=== PATIENT | female | born 1950 | race Caucasian/White ===

== ENCOUNTER 2016-07-05 09:52 | Observation (INO) ==
[2016-07-05] MEDS ORDERED: *HR* FentaNYL (PF) 100 MCG/2 ML VIAL IVP ONE ×2 (10:02→11:55)
--- NOTE | 2016-07-05 10:09 | Emergency Department Note ---
Disposition Clinical Impression: Chest pain Qualifiers: Chest pain type: unspecified Qualified Code(s): R07.9 - Chest pain, unspecified Disposition: Admitted As Inpatient Condition: Good Referrals: Maryann Saba CNP [Primary Care Provider] - Forms: ED Satisfaction Letter Time of Disposition: 14:58 General Adult HPI - General Chief complaint: ED Chest Pain Stated complaint: CP/SOB Time Seen by Provider: 07/05/16 10:00 Source: patient, EMS Limitations: no limitations Nursing Notes Reviewed: Yes Vital Signs Reviewed: Yes - History of Present Illness HPI Narrative: Female patient was sitting eating breakfast this morning when she developed chest pain. The chest pain is in her lower sternal area. She states it radiates to the left side of her chest and into her back. She states she also gets short of breath with this. She has not had any relief and she states the pain is a 9 out of 10. She was given aspirin on her Route over to the emergency department by EMS. She states she has never felt pain like this before. She was started on prednisone and Tylenol 3 yesterday for a lower leg pain. She denies any nausea vomiting or diaphoresis. Pain Scale: 9 - Related Data Home Medications Medication Instructions Recorded Confirmed Citalopram [CeleXA] 20 mg PO QAM 04/12/15 10/04/15 Lamotrigine [Lamictal] 200 mg PO BID 04/12/15 10/04/15 Mv W-Ca/Iron/FA/Lutein/Hrb#179 1 tab PO DAILY 04/12/15 10/04/15 [Renato Multivit For Women Caplet] Cyclosporine [Restasis] 1 drop OP BID 10/04/15 10/04/15 Topiramate [Topamax] 100 mg PO BID 10/04/15 10/04/15 Topiramate [Topamax] 200 mg PO BID 03/06/16 03/06/16 Acetaminophen with Codeine 1 tab PO Q6H PRN 07/05/16 07/05/16 [Acetaminophen-Cod #2 Tablet] LORazepam [Ativan] 1 mg PO HS 07/05/16 07/05/16 PredniSONE [Deltasone] 20 mg PO AD 07/05/16 07/05/16 Allergies Allergy/AdvReac Type Severity Reaction Status Date / Time dextromethorphan Allergy Severe Seizure Verified 10/04/15 10:53 doxylamine Allergy Severe Seizure Verified 10/04/15 10:53 hydrocortisone Allergy Severe Seizure Verified 10/04/15 10:53 [From Hydrocortone] Iodinated Contrast Media - Allergy Severe Hives Verified 10/04/15 10:53 Oral and [Iodinated Contrast Media - IV Dye] Oxycodone Allergy Severe Seizure Verified 10/04/15 10:53 pseudoephedrine Allergy Severe Seizure Verified 10/04/15 10:53 hydrocodone [From Vicodin] Allergy See Verified 10/04/15 10:53 Comments ibuprofen Allergy Hives Verified 10/04/15 10:53 acetaminophen [From NyQuil] AdvReac See Verified 10/04/15 10:53 Comments diphenhydramine AdvReac Nausea Verified 10/04/15 10:53 [From Benadryl] All systems ED: reviewed and negative except as stated. Constitutional: Denies: fever, chills ENT ED: Denies: throat pain, congestion Cardiovascular: Reports: chest pain (Left side of her chest. Radiates to her back. Started this morning while at rest.). Denies: palpitations, dyspnea on exertion, syncope Respiratory: Denies: cough, dyspnea Gastrointestinal: Denies: abdominal pain, nausea, vomiting, diarrhea, hematemesis, melena, hematochezia Genitourinary: Denies: urgency, dysuria, frequency, hematuria Musculoskeletal: Reports: back pain (Associated with her chest pain.). Denies: neck pain Integumentary: Denies: rash Neurological: Denies: headache Past Medical History - Past Medical History Medical history: Reports: COPD, CVA, seizures Surgical history: Reports: hysterectomy, knee replacement, other Psychiatric history: Reports: anxiety MERCHANDISING EXECUTION MANAGER history: Reports: no MERCHANDISING EXECUTION MANAGER history, 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 - Social History Smoking Status: Never smoker Smokeless Tobacco Status: No Alcohol use: Reports: none Drug use: Reports: none Physical Exam - General Limitations: no limitations General appearance: alert, other (Appears in pain.) - Head Head exam: atraumatic, normocephalic - Eye Eye exam: Present: normal appearance, PERRL, EOMI. Absent: scleral icterus - ENT ENT exam: normal exam, normal oropharynx, mucous membranes moist - Neck Neck exam: Present: normal inspection, full ROM, trachea midline. Absent: tenderness, lymphadenopathy - Chest Chest inspection: Present: other (No pain on palpation.). Absent: normal inspection - Respiratory Respiratory exam: Present: normal lung sounds bilaterally. Absent: respiratory distress - Cardiovascular Cardiovascular exam: Present: regular rate, normal rhythm, normal heart sounds - Abdominal Exam Abdominal exam: Present: soft, Non-Tender, normal bowel sounds. Absent: rigidity - Extremities Exam Extremities exam: Present: normal inspection, full ROM, normal capillary refill. Absent: tenderness, pedal edema - Back Exam Back exam: Present: normal inspection, full ROM. Absent: tenderness - Neurological Exam Neurological exam: Present: alert, oriented X3 - Psychiatric Psychiatric exam: Present: normal affect, normal mood, anxious - Skin Skin exam: Present: warm, dry, intact, normal color. Absent: rash Course Course Narrative: Female patient brought in by EMS for chest pain that began this morning. They gave her 4 baby aspirin prior to arrival. She states she was eating breakfast whenever the pain started. She describes the pain is on the left side of her chest that radiates to her back. She denies any cardiac history. 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 The onset was sudden and there is been no alleviating factors. She denies any shortness of breath associated with this. There is no nausea or vomiting associated. She is not diaphoretic. She does moan whenever you touch her chest. Or her abdomen. However whenever I discussed with her if she is having pain when I press on her chest she denies this. She states it is just a constant pain to the left side of her chest. There is no radiation to her jaw or down her arm. She denies any recent illnesses. She denies any fevers. She denies any coughs. We will get a chest pain workup on patient. 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 - Reevaluation(s) Reevaluation #1: Patient states that her pain was relieved with the fentanyl. However after she got up and ambulated to the bathroom and back to her bed she states the pain is back. She does appear to have an anxiety component to this and is hyperventilating at this time. We will order Ativan. Patient is still complaining of a pain radiating to her back. This is concerning for possible dissection. We will get a CTA of patient's chest. Time: 11:00 Reevaluation #2: Patient reevaluated. She states that she is still having chest pain is on the left side of her chest. She states that it has decreased some but then returned after her CT. Patient CTA was read as normal. Her troponin is negative. She has never had a cardiac workup. Her chest pain is still present. We will admit patient for a cardiac workup. Time: 13:25 - Consultations Consultation #1: Dr Duque accepted Pt in stable condition. Time: 14:09 Vital Signs Temperature 98.5 F 07/05/16 09:54 Pulse Rate 73 07/05/16 09:54 Respiratory Rate 18 07/05/16 09:54 Blood Pressure 150/89 07/05/16 09:54 O2 Sat by Pulse Oximetry 98 07/05/16 09:54 Temperature 98.5 F 07/05/16 09:54 Pulse Rate 61 07/05/16 14:10 Respiratory Rate 16 07/05/16 14:10 Blood Pressure 148/90 07/05/16 14:10 O2 Sat by Pulse Oximetry 100 07/05/16 14:10 Oxygen Delivery Oxygen Delivery Room Air Medical Decision Making - Medical Records Medical records reviewed: Yes I reviewed the patient's medical records. - Lab Data Lab results reviewed: Yes I reviewed the patient's lab results. Result diagrams: 07/05/16 10:18 07/05/16 10:18 Lab Results 07/05/16 07/05/16 07/05/16 Range/Units 10:18 10:18 10:18 WBC 5.8 (4.3-11.1) K/mcL RBC 3.74 L (3.82-4.97) M/mcL Hgb 10.4 L (11.5-15.4) g/dL Hct 34.4 L (35.3-44.9) % MCV 92.0 (83.0-100.0) fL MCH 27.8 L (28.0-33.3) pg MCHC 30.2 L (31.6-35.5) g/dL RDW 15.7 H (11.5-14.5) % Plt Count 222 (140-400) K/mcL MPV 9.6 (9.4-12.4) fL Immature Gran % 0.5 (0-4) % Seg Neutrophils % 85.3 % Lymphocytes % 8.7 % Monocytes % 5.0 % Eosinophils % 0.2 % Basophils % 0.3 % Neutrophils # 4.9 (1.6-8.9) K/mcL Lymphocytes # 0.5 L (0.6-4.6) K/mcL Monocytes # 0.3 (0.0-1.3) K/mcL Eosinophils # 0.0 (0.0-0.6) K/mcL Basophils # 0.0 (0.0-0.2) K/mcL Sodium 134 L (136-145) mEq/L Potassium 4.1 (3.5-4.5) mEq/L Chloride 108 (98-109) mEq/L Carbon Dioxide 16 L (19-29) mEq/L BUN 10 (7-20) mg/dL Creatinine 1.03 (0.57-1.11) mg/dL Est GFR ( Amer) > 60 (> 60) Est GFR (Non-Af Amer) 54 L (> 60) BUN/Creatinine Ratio 10 (6-26) Glucose 113 H (70-99) mg/dL Calculated Osmolality 278 L (280-300) Calcium 8.6 (8.6-10.8) mg/dL Total Bilirubin 0.2 (0.2-1.2) mg/dL Direct Bilirubin 0.1 (0.0-0.5) mg/dL Indirect Bilirubin 0.1 (0.0-1.2) mg/dL AST 10 (5-34) Units/L ALT 6 (0-55) Units/L Alkaline Phosphatase 129 H (38-126) Units/L Troponin I 0.00 (0-0.03) ng/mL Serum Total Protein 6.6 (6.0-8.3) g/dL Albumin 3.4 L (3.5-5.0) g/dL Globulin 3.2 (2.4-3.5) g/dL Albumin/Globulin Ratio 1.1 (1.1-2.2) Amylase 66 (25-125) Units/L Lipase 29 (8-78) Units/L - Radiology Data Radiology results reviewed: Yes I reviewed the patient's radiology results. Chest X-Ray 07/05/16 10:00 IMPRESSION: No acute findings change from prior examination D/ / Farrukh Cedeño MD / Farrukh Cedeño MD Interpreting Provider: Farrukh Cedeño MD Chest CTA 07/05/16 13:00 IMPRESSION: 1. No evidence of pulmonary embolism. 2. Mild left basilar atelectasis. D/ / Angélica Grayson MD / Angélica Grayson MD Interpreting Provider: Angélica Grayson MD - EKG Data EKG #1 EKG attestation: Yes I reviewed and interpreted this EKG. EKG results narrative: Normal sinus rhythm at a rate of 77. MA interval is 189. QRS duration is 90. QT is 377. QTC is 409. There is no ST elevation or depression greater than 1 mm. There are no significant changes from EKG dated . Attestation Statement - Attestation Attestation: I examined this patient and my medical decision-making was reviewed with the MANIFOLD OPERATOR/PA/Advanced Practice Nurse/Resident Physician. I agree with the documented findings, disposition and treatment plan as described except to the extent set forth below. Patient to the emergency department with a chief complaint of chest pain. Sharp pains in her left side. Started while eating breakfast. No cardiac history. She is not diabetic. She states her mother from a [place]. On examination she appears in no distress. Her pains are not reproducible. Her lungs are clear. Plan. Cardiac workup is negative. She has never had a stress test or cardiac workup. She was ruled out for PE /dissection. Still appears uncomfortable and having pain. Admitted to medicine.
[2016-07-05 10:26] LABS: Basophils % 0.3 %; Eosinophils % 0.2 %; Hematocrit 34.4 % (35.3-44.9); Hemoglobin 10.4 g/dL (11.5-15.4); Immature Granulocytes % 0.5 % (0-4); Lymphocytes # 0.5 K/mcL (0.6-4.6); Lymphocytes % 8.7 %; Mean Corpuscular HGB Conc 30.2 g/dL (31.6-35.5); Mean Corpuscular Hemoglobin 27.8 pg (28.0-33.3); Mean Platelet Volume 9.6 fL (9.4-12.4); Monocytes # 0.3 K/mcL (0.0-1.3); Neutrophils # 4.9 K/mcL (1.6-8.9); Platelet Count 222 K/mcL (140-400); Red Blood Count 3.74 M/mcL (3.82-4.97); Red Cell Distribution Width 15.7 % (11.5-14.5); Segmented Neutrophils % 85.3 %
[2016-07-05 10:39] LABS: Alanine Aminotransferase 6 Units/L (0-55); Albumin 3.4 g/dL (3.5-5.0); Albumin/Globulin Ratio 1.1 (1.1-2.2); Alkaline Phosphatase 129 Units/L (38-126); Amylase 66 Units/L (25-125); Aspartate Amino Transferase 10 Units/L (5-34); BUN/Creatinine Ratio 10 (6-26); Bilirubin,Direct 0.1 mg/dL (0.0-0.5); Bilirubin,Indirect 0.1 mg/dL (0.0-1.2); Bilirubin,Total 0.2 mg/dL (0.2-1.2); Blood Urea Nitrogen 10 mg/dL (7-20); Calcium 8.6 mg/dL (8.6-10.8); Carbon Dioxide 16 mEq/L (19-29); Chloride 108 mEq/L (98-109); Globulin 3.2 g/dL (2.4-3.5); Glucose 113 mg/dL (70-99); Lipase 29 Units/L (8-78); Osmolality,Calculated 278 (280-300); Potassium 4.1 mEq/L (3.5-4.5); Sodium 134 mEq/L (136-145); Total Protein 6.6 g/dL (6.0-8.3); eGFR For African Americans > 60 (> 60); eGFR For Non-African Americans 54 (> 60)
[2016-07-05] MEDS ORDERED: *HR* LORazepam 2 MG/ML VIAL IVP ONE (11:00)
--- NOTE | 2016-07-05 12:36 | Electrocardiograph Report ---
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
[2016-07-05] MEDS ORDERED: Naloxone 0.4 MG/ML INJ IVP PRN (18:09)
[2016-07-05] MEDS ORDERED: ACETAMINOPHEN WITH CODEINE PO PRN (18:10)
[2016-07-05] MEDS ORDERED: predniSONE 20 MG TABLET PO SCH (18:15)
--- NOTE | 2016-07-05 19:09 | Internal Med History&Physical ---
Date of Encounter: 07/05/16 Time of Encounter: 18:25 Assessment and Plan (1) Chest pain Current visit: Yes Status: Acute patient with no prior CAD history but carrying significant risk factors comes in with chest pain that embodies features of both typical and atypical ACS admission EKG showed no ischemic changes, troponin was unremarkable we will therefore admit her for ACS r/o we will to telemonitoring, cycle her troponin levels NPO post midnight for stress test in AM we will check lipid panel and A1c for risk stratification, continue statins and antiplatelet therapy Qualifiers: Chest pain type: intercostal pain Qualified Code(s): R07.82 - Intercostal pain (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 we will continue her topiramate 300mg POQ12H as well as lamictal Qualifiers: Intractability: not intractable Status epilepticus: without status epilepticus Qualified Code(s): G40.A09 - Absence epileptic syndrome, not intractable, without status epilepticus (3) Depression Current visit: Yes Status: Chronic will continue citalopram Qualifiers: Depression Type: reactive depression Qualified Code(s): F32.9 - Major depressive disorder, single episode, unspecified (4) COPD (chronic obstructive pulmonary disease) Current visit: Yes Status: Chronic stable, we will do PRN nebs Qualifiers: COPD type: chronic bronchitis Chronic bronchitis type: simple Qualified Code(s): J41.0 - Simple chronic bronchitis Internal Medicine - H&P: HPI Chief complaint: Chest pain Admitted From: Emergency Dept Plans for Post Hospital Care: Home History of present illness: Ms. Mccarthy is a 65 year old female with no known prior history of CAD who comes in today with chest pain. She was in her usual state of health until this morning at around 9:30 am when whilst eating breakfast she began to experience left sided chest pain, it was sharp in character, radiated to her back, 9/10 in severity. The pain was associated with shortness of breath and palpitations but she denied nausea or vomiting, lightheadedness, diaphoresis or a feeling of apprehension. This is her first such episode. The pain lasted until she got to the ER of [place]. She received about 3 baby aspirins by the EMS staff en route to the ER but it gave her no significant relief. She reports that she had a stress test several years ago that was unremarkable. In the ER her EKG was unremarkable, so was her troponin level. Past Med Surg Social Fam HX - Past Medical History Medical history: COPD, CVA, seizures Psychiatric history: anxiety - Past Surgical History Surgical History: hysterectomy, knee replacement, other - Social History Smoking Status: Never smoker Smokeless Tobacco Status: No Alcohol use: none Drug use: none - Family History Mother Hx Family Cardiac Disorders: Yes Hx Family Respiratory Disorders: No Hx Family Cancer: Yes (breast cancer) Hx Family GI Disorders: No Hx Family Endocrine Disorder: No Hx Family Neuromuscular Disorders: No Hx Family Neurologic Disorders: No Hx Family HEENT Disorders: No Hx Family Autoimmune Disorders: No Internal Medicine - H&P: Meds Citalopram [CeleXA] 20 mg PO QAM 04/12/15 [History] Lamotrigine [Lamictal] 200 mg PO BID 04/12/15 [History] Mv W-Ca/Iron/FA/Lutein/Hrb#179 [Renato Multivit For Women Caplet] 1 tab PO DAILY 04/12/15 [History] Cyclosporine [Restasis] 1 drop OP BID 10/04/15 [History] Topiramate [Topamax] 100 mg PO BID 10/04/15 [History] Topiramate [Topamax] 200 mg PO BID 03/06/16 [History] Acetaminophen with Codeine [Acetaminophen-Cod #2 Tablet] 1 tab PO Q6H PRN [History] LORazepam [Ativan] 1 mg PO HS 07/05/16 [History] PredniSONE [Deltasone] 20 mg PO AD 07/05/16 [History] Allergies dextromethorphan Allergy (Severe, Verified 10/04/15 10:53) Seizure doxylamine Allergy (Severe, Verified 10/04/15 10:53) Seizure hydrocortisone [From Hydrocortone] Allergy (Severe, Verified 10/04/15 10:53) Seizure Iodinated Contrast Media - Oral and [Iodinated Contrast Media - IV Dye] Allergy (Severe, Verified 10/04/15 10:53) Hives Oxycodone Allergy (Severe, Verified 10/04/15 10:53) Seizure pseudoephedrine Allergy (Severe, Verified 10/04/15 10:53) Seizure hydrocodone [From Vicodin] Allergy (Verified 10/04/15 10:53) See Comments ibuprofen Allergy (Verified 10/04/15 10:53) Hives acetaminophen [From NyQuil] Adverse Reaction (Verified 10/04/15 10:53) See Comments diphenhydramine [From Benadryl] Adverse Reaction (Verified 10/04/15 10:53) Nausea All Systems PM: All systems ED: reviewed and negative except as stated. Constitutional: Denies: fever, chills ENT ED: Denies: throat pain, congestion Cardiovascular: Reports: chest pain (Left side of her chest. Radiates to her back. Started this morning while at rest.). Denies: palpitations, dyspnea on exertion, syncope Respiratory: Denies: cough, dyspnea Gastrointestinal: Denies: abdominal pain, nausea, vomiting, diarrhea, hematemesis, melena, hematochezia Genitourinary: Denies: urgency, dysuria, frequency, hematuria Musculoskeletal: Reports: back pain (Associated with her chest pain.). Denies: neck pain Integumentary: Denies: rash Neurological: Denies: headache - Constitutional Vitals: Temp Pulse Resp BP Pulse Ox 98.2 F 74 16 133/84 97 07/05/16 16:39 07/05/16 16:39 07/05/16 16:39 07/05/16 16:39 07/05/16 16:39 PHYSICAL EXAMINATION: GENERAL: Adult female, lying in bed with no sign of distress, Alert, Obese looking HEENT: NC/AT, EOMI, PERRLA, anicteric sclera, normal conjunctiva, supple, clear nares, moist mucous membranes, clear oropharynx, central uvula RESP: no chest wall tenderness with palpation, lungs are clear to auscultation bilaterally, good AE bilaterally, No crackles or wheeze CARDIO: Normal hearts sounds; S1 and 2, RRR with no murmurs, no JVD, no ankle edema GI: Soft, full, no tenderness, no organomegaly felt, normal bowel sounds heard MUSCULOSKELETAL: grossly normal movements bilaterally, no deformities noted, no calf tenderness EXTREMITIES: No clubbing, cyanosis or edema, NEUROLOGIC: CN 2-12 intact grossly. No motor/sensory deficit appreciated, PSYCHIATRY: AAO x 3. Mood is fair, exhibits appropriate judgement SKIN: no skin rash or ulcers noted Internal Med - H&P Results - Labs CBC & Chem 7: 07/05/16 10:18 07/06/16 00:45 - EKG Data -: EKG Interpreted by Myself EKG shows normal: sinus rhythm - Diagnostic Studies CT scan - chest Status: image reviewed by me Chest x-ray Status: image reviewed by me
[2016-07-05] MEDS ORDERED: *HR* LORazepam 1 MG TABLET PO SCH (21:00)
[2016-07-05] MEDS: lamoTRIgine 100 MG TABLET PO SCH (21:26)
[2016-07-05] MEDS: (Cyclosporine [Restasis] 1 DROP) OP SCH (21:27)
[2016-07-05] MEDS: Topiramate 100 MG TABLET PO SCH ×2 (21:28)
[2016-07-05] MEDS ORDERED: Acetaminophen 325 MG TABLET PO PRN (21:41)
[2016-07-06 01:02] LABS: Hemoglobin A1C 5.4 %
[2016-07-06] MEDS ORDERED: Albuterol 2.5 MG/3 ML NEBULIZER IH PRN (01:08)
[2016-07-06 01:18] LABS: BUN/Creatinine Ratio 10 (6-26); Blood Urea Nitrogen 10 mg/dL (7-20); Calcium 8.4 mg/dL (8.6-10.8); Carbon Dioxide 23 mEq/L (19-29); Chloride 109 mEq/L (98-109); Chol/HDL Ratio 2.8 (0-4.9); Cholesterol 191 mg/dL (< 200); Glucose 119 mg/dL (70-99); HDL Cholesterol 68 mg/dL (40-59); LDL Cholesterol,Calculated 112 mg/dL (0-99); Magnesium 2.1 mg/dL (1.6-2.6); Osmolality,Calculated 280 (280-300); Phosphorous 2.4 mg/dL (2.3-4.7); Potassium 4.4 mEq/L (3.5-4.5); Sodium 135 mEq/L (136-145); Triglycerides 55 mg/dL (< 150); eGFR For African Americans > 60 (> 60); eGFR For Non-African Americans 55 (> 60)
[2016-07-06] MEDS: *HR* Heparin 5,000 UNIT/ML VIAL SQ SCH ×2 (05:31→13:16)
[2016-07-06] MEDS ORDERED: Regadenoson 0.4 MG/5 ML SYRINGE IVP ONE (07:08)
[2016-07-06] MEDS ORDERED: Multivit/Ca/Min/Fe/FA 1 TAB TABLET PO SCH (09:00)
[2016-07-06] MEDS: Nitroglycerin 0.4 MG TAB.SUBL SL PRN ×2 (10:46→10:54)
[2016-07-06] MEDS: (Cyclosporine [Restasis] 1 DROP) OP SCH (10:47)
[2016-07-06] MEDS: lamoTRIgine 100 MG TABLET PO SCH (10:47)
[2016-07-06] MEDS: Topiramate 100 MG TABLET PO SCH ×2 (10:48)
--- NOTE | 2016-07-06 11:49 | Nuclear Medicine Stress Report ---
Regadenoson Nuclear Stress Name: Rocio Mccarthy Date of Study: 07/06/2016 Date: 1950 Ht: 65.0 in Medical Record#: [id number] Age: 65 Wt: 226.0 lb Gender: Female Order #: [id number] Location: [facility] Room: [facility] Supervising Provider: Prerna Melvin CNP Reading Physician: Jackson Ram DO, ROBERT WOMACK FASNC Ordering Physician: Heaven Harper CNP Primary Care Physician: Maryann Saba CNP Stress Technologist: Vilma Kathleen RECOVERY ENGINEER, CCT Dryerman/Woman: Preston Woodson Indications: Chest Pain Impression: Pharmacologic stress ECG is negative for ischemia at level of heart rate achieved. Gated EF = 62%. Small sized, mild intensity, fixed primarily apex perfusion defect consistent with artifact. Perfusion imaging was negative for ischemia or infarct. Stress Test Summary: Stress Test Type: Pharmacologic Regadenoson 0.4mg/5ml given IV Baseline Information: Initial Heart Rate: 65 Blood Pressure: 138/82 Stress Information: Test Terminated Due to (primary): As per protocol Maximum Blood Pressure: 140/72 Maximum Heart Rate: 90 Percent Maximum Heart Rate Achieved: 57 Double Product: [id number] METS Reached: 1 Symptoms: No chest symptoms Nuclear Summary: SPECT myocardial perfusion imaging using Tc99m Sestamibi given intravenously was performed at rest and following cardiac stress testing. The resting images were obtained following initial dose of 11.2 mCi. Following stress an additional dose of 33.5 mCi was given at peak exercise or 30 seconds post regadenoson infusion. Medication Given: Time Medication Dose Units Route Findings: Stress Note * Resting ECG demonstrated normal sinus rhythm. * No baseline arrhythmias were noted. * Pharmacologic stress ECG is negative for ischemia at level of heart rate achieved. * No arrhythmias were noted during stress. * Patient had no chest pain during stress. * Normal hemodynamic responses to pharmacologic stress. Study Quality * Study quality is average. Gated EF % * Gated EF = 62%. Left Ventricle * The left ventricle is not dilated. LVEDV = 111 mL. NORMALS * Normal wall motion. Apical Perfusion Stress * The apex segment shows a mild reduction in perfusion. Apical Perfusion Rest * The apex and apical anterior segments show a mild reduction in perfusion. TID * No evidence of transient ischemic dilatation. TID ratio = 1.09. Lung Uptake * There is no evidence of increase lung uptake. Updated by Jackson Ram DO, VU, ROBERT, YESENIA on 07/06/2016 11:41:16 AM electronically signed on 07/06/2016 11:43:18 AM with status of Final
[2016-07-06 14:46] VITALS: BP 102/63
--- NOTE | 2016-07-06 16:16 | Discharge Summary ---
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 Qualifiers: Intractability: not intractable Status epilepticus: without status epilepticus Qualified Code(s): G40.A09 - Absence epileptic syndrome, not intractable, without status epilepticus (3) Depression Priority: Secondary Status: Chronic Qualifiers: Depression Type: reactive depression Qualified Code(s): F32.9 - Major depressive disorder, single episode, unspecified (4) COPD (chronic obstructive pulmonary disease) Priority: Secondary Status: Chronic Qualifiers: COPD type: chronic bronchitis Chronic bronchitis type: simple Qualified Code(s): J41.0 - Simple chronic bronchitis - Discharge Medications Home Medications: Citalopram [CeleXA] 20 mg PO QAM 04/12/15 [History] Lamotrigine [Lamictal] 200 mg PO BID 04/12/15 [History] Mv W-Ca/Iron/FA/Lutein/Hrb#179 [Renato Multivit For Women Caplet] 1 tab PO DAILY 04/12/15 [History] Cyclosporine [Restasis] 1 drop OP BID 10/04/15 [History] Topiramate [Topamax] 100 mg PO BID 10/04/15 [History] Topiramate [Topamax] 200 mg PO BID 03/06/16 [History] Acetaminophen with Codeine [Acetaminophen-Cod #2 Tablet] 1 tab PO Q6H PRN [History] LORazepam [Ativan] 1 mg PO HS 07/05/16 [History] PredniSONE [Deltasone] 20 mg PO AD 07/05/16 [History] Allergies/Adverse Reactions: Allergies dextromethorphan Allergy (Severe, Verified 10/04/15 10:53) Seizure doxylamine Allergy (Severe, Verified 10/04/15 10:53) Seizure hydrocortisone [From Hydrocortone] Allergy (Severe, Verified 10/04/15 10:53) Seizure Iodinated Contrast Media - Oral and [Iodinated Contrast Media - IV Dye] Allergy (Severe, Verified 10/04/15 10:53) Hives Oxycodone Allergy (Severe, Verified 10/04/15 10:53) Seizure pseudoephedrine Allergy (Severe, Verified 10/04/15 10:53) Seizure hydrocodone [From Vicodin] Allergy (Verified 10/04/15 10:53) See Comments ibuprofen Allergy (Verified 10/04/15 10:53) Hives acetaminophen [From NyQuil] Adverse Reaction (Verified 10/04/15 10:53) See Comments diphenhydramine [From Benadryl] Adverse Reaction (Verified 10/04/15 10:53) Nausea Procedures/tests Complete & Pending: Procedures Performed prior 72 hours Category Date Time Status NM charlene perf SPECT multi [NM] Routine Exams 07/05/16 18:44 Taken SP pharm nuclear stress Routine Y 07/06/16 07:50 Completed Date of admission: 07/05/16 15:45 Primary care physician: Maryann Saba CNP Discharging clinician: Roselyn Akhtar Anticipated date of discharge: 07/06/16 - Patient Status Disposition: Home, Self-Care Condition: Good Functional capacity at discharge: independent ambulation Overall status at discharge: patient is back to baseline - Discharge Instructions Follow Up With: Maryann Saba CNP [Primary Care Provider] - 07/12/16 10:40 am - Diet and Activity Activity: increase activity as tolerated Diet: low fat, low cholesterol, low salt diet Interval History: Ms. Mccarthy is a 65 year old female with no known prior history of CAD who comes in today with chest pain. She was in her usual state of health until this morning at around 9:30 am when whilst eating breakfast she began to experience left sided chest pain, it was sharp in character, radiated to her back, 9/10 in severity. The pain was associated with shortness of breath and palpitations but she denied nausea or vomiting, lightheadedness, diaphoresis or a feeling of apprehension. This is her first such episode. The pain lasted until she got to the ER of [place]. She received about 3 baby aspirins by the EMS staff en route to the ER but it gave her no significant relief. She reports that she had a stress test several years ago that was unremarkable. In the ER her EKG was unremarkable, so was her troponin level. Hospital course: Ms. Mccarthy is a 65 year old female admited for chest pain to rule out ACS. Her del angel is intermittent , no radiation.she was placed on cardiac monitoring. CTA has been done , shows no PE. EKG unremarkable.3 sets of troponin negative.stress test has been done ,results negative. patient is pain-free now. We will discharge patient home. Patient was seen and examined She is pain-free right now. vitals are stable. Will dicharge patient home and afollow-up with PCP as outpatient. - Time Spent with Patient Total time spent providing and/or coordinating discharge services: 25 min Less than 30 minutes - Constitutional Vitals: Temp Pulse Resp BP Pulse Ox 98.2 F 73 14 102/63 98 07/06/16 14:44 07/06/16 14:44 07/06/16 14:44 07/06/16 14:44 07/06/16 14:44 General appearance: Present: cooperative, A&O X 3, answers questions appropriately - Head Head exam: Present: atraumatic, normocephalic - Eye Eye exam: Present: PERRL, conjuntiva pink, sclera anicteric Pupils: Present: PERRL - Neck Neck exam general surgery: Present: supple, trachea midline. Absent: lymphadenopathy - Respiratory Respiratory exam: Present: CTAB. Absent: accessory muscle use, rales, rhonchi, wheezes - Cardiovascular Cardiovascular exam: Present: RRR, +S1, +S2. Absent: diastolic murmur, gallop, rubs, systolic murmur - GI/Abdominal GI/Abdominal exam: Present: normal bowel sounds, soft, no peritoneal signs. Absent: distended, tenderness - Extremities Exam Extremities exam: Present: warm, radial pulses palpable and symetrical. Absent : calf tenderness, cyanotic, pedal edema - Neurological Exam Neurological exam: Present: CN II-XII intact, oriented X3, no focal deficits. Absent: pronater drift, facial droop, speech deficit - Skin Skin exam: Present: dry, intact
== END 2016-07-06 16:47 | disposition home health service (06) ==
LOC: 3BNU 09:52 → EMEROO 09:52 → 3BNU 16:04
PROVIDERS: ADMIT Internal Medicine Endocrinology, Diabetes & Metabolism; ATTEND Registered Nurse

== ENCOUNTER 2016-08-14 10:35 | Inpatient (IN) ==
--- NOTE | 2016-08-14 13:27 | Emergency Department Note ---
Disposition Clinical Impression: Chest pain Qualifiers: Chest pain type: unspecified Qualified Code(s): R07.9 - Chest pain, unspecified Lower extremity edema Qualifiers: Laterality: bilateral Qualified Code(s): R60.0 - Localized edema Disposition: Admitted As Inpatient Condition: Fair Referrals: Maryann Saba CNP [Primary Care Provider] - Forms: ED Satisfaction Letter Time of Disposition: 15:37 General Adult HPI - General Chief complaint: ED Extremity Problem,Nontraumatic Stated complaint: BLE swelling, LUE numbness Source: patient Limitations: no limitations Nursing Notes Reviewed: Yes Vital Signs Reviewed: Yes - History of Present Illness HPI Narrative: 65-year-old who comes in complaining of eye lateral lower extremity edema and stiffness and then had an episode of left arm tingling for about 10 minutes which resolved spontaneously. She states the lower extremity edema has gotten progressively worse over the last couple of days. She denies any chest pain she denies any shortness of breath. Pt Subjective Complaint: Bilateral lower extremity edema Onset (ago): day(s) Location: left, right, lower extremity Radiation: non-radiation Pain Scale: 6 Quality: burning, aching Consistency: constant Improves with: nothing Associated symptoms: Denies: chest pain, cough - Related Data Home Medications Medication Instructions Recorded Confirmed Citalopram [CeleXA] 20 mg PO QAM 04/12/15 07/05/16 Lamotrigine [Lamictal] 200 mg PO BID 04/12/15 07/05/16 Mv W-Ca/Iron/FA/Lutein/Hrb#179 1 tab PO DAILY 04/12/15 07/05/16 [Renato Multivit For Women Caplet] Cyclosporine [Restasis] 1 drop OP BID 10/04/15 07/05/16 Topiramate [Topamax] 100 mg PO BID 10/04/15 07/05/16 Topiramate [Topamax] 200 mg PO BID 03/06/16 07/05/16 Acetaminophen with Codeine 1 tab PO Q6H PRN 07/05/16 07/05/16 [Acetaminophen-Cod #2 Tablet] LORazepam [Ativan] 1 mg PO HS 07/05/16 07/05/16 PredniSONE [Deltasone] 20 mg PO AD 07/05/16 07/05/16 Allergies Allergy/AdvReac Type Severity Reaction Status Date / Time dextromethorphan Allergy Severe Seizure Verified 08/14/16 10:42 doxylamine Allergy Severe Seizure Verified 08/14/16 10:42 hydrocortisone Allergy Severe Seizure Verified 08/14/16 10:42 [From Hydrocortone] Iodinated Contrast Media - Allergy Severe Hives Verified 08/14/16 10:42 Oral and [Iodinated Contrast Media - IV Dye] Oxycodone Allergy Severe Seizure Verified 08/14/16 10:42 pseudoephedrine Allergy Severe Seizure Verified 08/14/16 10:42 hydrocodone [From Vicodin] Allergy See Verified 08/14/16 10:42 Comments ibuprofen Allergy Hives Verified 08/14/16 10:42 acetaminophen [From NyQuil] AdvReac See Verified 08/14/16 10:42 Comments diphenhydramine AdvReac Nausea Verified 08/14/16 10:42 [From Benadryl] Constitutional: Denies: fever, chills, weakness, weight change Eyes: Denies: eye pain, eye discharge, vision change ENT ED: Denies: ear pain, throat pain, dental pain, hearing loss, epistaxis, congestion, dysphagia Cardiovascular: Denies: chest pain, palpitations, dyspnea on exertion, edema, syncope Respiratory: Denies: cough, dyspnea, wheezes, hemoptysis, stridor Gastrointestinal: Denies: abdominal pain, nausea, vomiting, diarrhea, constipation, hematemesis, melena, hematochezia Genitourinary: Denies: dysuria, frequency, hematuria, discharge Musculoskeletal: Reports: joint swelling. Denies: back pain, neck pain, arthralgia, myalgia Integumentary: Denies: rash, abrasion, lesions Neurological: Denies: headache, weakness, numbness, paresthesias, confusion, abnormal gait, vertigo Psychiatric: Denies: anxiety, depression, suicidal thoughts, homicidal thoughts , auditory hallucinations, visual hallucinations Endocrine: Denies: fatigue Hematological/Lymphatic: Denies: easy bleeding, easy bruising Allergic/Immunologic: Denies: facial swelling, urticaria Past Medical History - Past Medical History Medical history: Reports: COPD, CVA, seizures Surgical history: Reports: hysterectomy, knee replacement, other Psychiatric history: Reports: anxiety [employer] 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, 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 - Social History Smoking Status: Never smoker Smokeless Tobacco Status: No Alcohol use: Reports: none Drug use: Reports: none Physical Exam - General Limitations: no limitations General appearance: alert, in no apparent distress - Head Head exam: atraumatic, normocephalic, normal inspection - Eye Eye exam: Present: normal appearance, PERRL, EOMI - ENT ENT exam: normal exam, normal oropharynx, mucous membranes moist - Neck Neck exam: Present: normal inspection, full ROM, trachea midline - Chest Chest inspection: Present: normal inspection - Respiratory Respiratory exam: Present: normal lung sounds bilaterally - Cardiovascular Cardiovascular exam: Present: regular rate, normal rhythm, normal heart sounds - Abdominal Exam Abdominal exam: Present: soft, Non-Tender. Absent: tenderness, distention, guarding, rebound, rigidity - Extremities Exam Extremities exam: Present: normal inspection, full ROM. Absent: tenderness, pedal edema - Expanded Lower Extremity Exam Foot/toe exam: Present: swelling Neurovascular/Tendon exam: Absent: motor deficit, sensory deficit, tendon deficit Gait: not tested/not observed - Back Exam Back exam: Present: normal inspection, full ROM. Absent: tenderness - Neurological Exam Neurological exam: Present: alert, oriented X3 - Psychiatric Psychiatric exam: Present: normal affect, normal mood - Skin Skin exam: Present: warm, dry, intact, normal color Course - Reevaluation(s) Reevaluation #1: Patient develop worsening chest pain we will obtain an EKG. Time: 14:01 - Consultations Consultation #1: I discussed with , it. Time: 15:36 Vital Signs Temperature 98.5 F 08/14/16 10:42 Pulse Rate 74 08/14/16 10:42 Respiratory Rate 18 08/14/16 10:42 Blood Pressure 149/76 08/14/16 10:42 O2 Sat by Pulse Oximetry 98 08/14/16 10:42 Temperature 98.5 F 08/14/16 10:42 Pulse Rate 74 08/14/16 10:42 Respiratory Rate 18 08/14/16 10:42 Blood Pressure 149/76 08/14/16 10:42 O2 Sat by Pulse Oximetry 98 08/14/16 10:42 Oxygen Delivery Oxygen Delivery Room Air Medical Decision Making - Lab Data Lab results reviewed: Yes I reviewed the patient's lab results. Result diagrams: 08/14/16 13:46 08/14/16 13:46 Lab Results 08/14/16 08/14/16 08/14/16 Range/Units 13:46 13:46 13:46 WBC 5.3 (4.3-11.1) K/mcL RBC 3.77 L (3.82-4.97) M/mcL Hgb 10.8 L (11.5-15.4) g/dL Hct 35.4 (35.3-44.9) % MCV 93.9 (83.0-100.0) fL MCH 28.6 (28.0-33.3) pg MCHC 30.5 L (31.6-35.5) g/dL RDW 17.7 H (11.5-14.5) % Plt Count 230 (140-400) K/mcL MPV 9.5 (9.4-12.4) fL Immature Gran % 0.2 (0-4) % Seg Neutrophils % 63.2 % Lymphocytes % 26.2 % Monocytes % 7.2 % Eosinophils % 2.3 % Basophils % 0.9 % Neutrophils # 3.4 (1.6-8.9) K/mcL Lymphocytes # 1.4 (0.6-4.6) K/mcL Monocytes # 0.4 (0.0-1.3) K/mcL Eosinophils # 0.1 (0.0-0.6) K/mcL Basophils # 0.1 (0.0-0.2) K/mcL ESR 30 H (0-15) mm/hr Sodium 138 (136-145) mEq/L Potassium 3.8 (3.5-4.5) mEq/L Chloride 109 (98-109) mEq/L Carbon Dioxide 22 (19-29) mEq/L BUN 7 (7-20) mg/dL Creatinine 1.02 (0.57-1.11) mg/dL Est GFR ( Amer) > 60 (> 60) Est GFR (Non-Af Amer) 55 L (> 60) BUN/Creatinine Ratio 7 (6-26) Glucose 96 (70-99) mg/dL Calculated Osmolality 284 (280-300) Calcium 9.0 (8.6-10.8) mg/dL Troponin I (0-0.03) ng/mL B-Natriuretic Peptide (0-100) pg/mL 08/14/16 08/14/16 Range/Units 13:46 13:46 WBC (4.3-11.1) K/mcL RBC (3.82-4.97) M/mcL Hgb (11.5-15.4) g/dL Hct (35.3-44.9) % MCV (83.0-100.0) fL MCH (28.0-33.3) pg MCHC (31.6-35.5) g/dL RDW (11.5-14.5) % Plt Count (140-400) K/mcL MPV (9.4-12.4) fL Immature Gran % (0-4) % Seg Neutrophils % % Lymphocytes % % Monocytes % % Eosinophils % % Basophils % % Neutrophils # (1.6-8.9) K/mcL Lymphocytes # (0.6-4.6) K/mcL Monocytes # (0.0-1.3) K/mcL Eosinophils # (0.0-0.6) K/mcL Basophils # (0.0-0.2) K/mcL ESR (0-15) mm/hr Sodium (136-145) mEq/L Potassium (3.5-4.5) mEq/L Chloride (98-109) mEq/L Carbon Dioxide (19-29) mEq/L BUN (7-20) mg/dL Creatinine (0.57-1.11) mg/dL Est GFR ( Amer) (> 60) Est GFR (Non-Af Amer) (> 60) BUN/Creatinine Ratio (6-26) Glucose (70-99) mg/dL Calculated Osmolality (280-300) Calcium (8.6-10.8) mg/dL Troponin I 0.00 (0-0.03) ng/mL B-Natriuretic Peptide 89 (0-100) pg/mL - Radiology Data Radiology results reviewed: Yes I reviewed the patient's radiology results. Chest X-Ray 08/14/16 13:23 IMPRESSION: No acute process. D/ / Abilio Hess MD / Abilio Hess MD Interpreting Provider: Abilio Hess MD - EKG Data EKG #1 EKG attestation: Yes I reviewed and interpreted this EKG. EKG shows normal: sinus rhythm Rate: normal Rhythm: NSR Interpretation: no acute changes EKG #2 EKG attestation: Yes I reviewed and interpreted this EKG. EKG shows normal: sinus rhythm Rate: normal Rhythm: NSR Interpretation: no acute changes
[2016-08-14 13:57] LABS: Basophils # 0.1 K/mcL (0.0-0.2); Basophils % 0.9 %; Eosinophils # 0.1 K/mcL (0.0-0.6); Eosinophils % 2.3 %; Hematocrit 35.4 % (35.3-44.9); Hemoglobin 10.8 g/dL (11.5-15.4); Immature Granulocytes % 0.2 % (0-4); Lymphocytes # 1.4 K/mcL (0.6-4.6); Lymphocytes % 26.2 %; Mean Corpuscular HGB Conc 30.5 g/dL (31.6-35.5); Mean Corpuscular Hemoglobin 28.6 pg (28.0-33.3); Mean Corpuscular Volume 93.9 fL (83.0-100.0); Mean Platelet Volume 9.5 fL (9.4-12.4); Monocytes # 0.4 K/mcL (0.0-1.3); Monocytes % 7.2 %; Neutrophils # 3.4 K/mcL (1.6-8.9); Platelet Count 230 K/mcL (140-400); Red Blood Count 3.77 M/mcL (3.82-4.97); Red Cell Distribution Width 17.7 % (11.5-14.5); Segmented Neutrophils % 63.2 %
[2016-08-14 14:07] LABS: BUN/Creatinine Ratio 7 (6-26); Blood Urea Nitrogen 7 mg/dL (7-20); Carbon Dioxide 22 mEq/L (19-29); Chloride 109 mEq/L (98-109); Glucose 96 mg/dL (70-99); Osmolality,Calculated 284 (280-300); Potassium 3.8 mEq/L (3.5-4.5); Sodium 138 mEq/L (136-145); eGFR For African Americans > 60 (> 60); eGFR For Non-African Americans 55 (> 60)
[2016-08-14] MEDS ORDERED: *HR* Morphine 2 MG/ML SYRINGE IVP ONE ×2 (14:16→18:35)
[2016-08-14] MEDS ORDERED: Ondansetron 4 MG/2 ML VIAL IVP ONE (14:16)
[2016-08-14] MEDS ORDERED: Naloxone 0.4 MG/ML INJ IVP PRN (18:22)
[2016-08-14] MEDS ORDERED: *HR* Morphine 2 MG/ML SYRINGE ONE (18:36)
[2016-08-14] MEDS ORDERED: *HR* LORazepam 1 MG TABLET PO PRN (18:39)
--- NOTE | 2016-08-14 19:12 | Event Note ---
Date of Encounter: 08/14/16 Time of Encounter: 19:07 I examined this patient and my medical decision-making was reviewed with the Advanced Practice Nurse, Olive Alvarenga. I agree with the documented findings , disposition and treatment plan as described except to the extent set forth below. Patient currently reports severe stabbing sharp chest pain left-sided radiating into the left shorter associated with left upper extremity numbness. She says that the pain started in the emergency department that she did not have the pain before coming to the hospital. She presented to the hospital for evaluation of leg swelling and difficulty walking. Chest pain as associated with shortness of breath and has improved with administration of IV morphine. Physical exam: Patient is tearful and in moderate distress due to pain. Heart is regular S1-S2 with no murmurs. Lungs are clear although the exam is limited by shallow breathing. 1+ lower extremity pitting edema with sock markings. Right knee replacement scar noted. Tenderness bilaterally. Laboratory data: BUN 7 creatinine 1.0 and troponin 0.00. BNP 89. EKG personally reviewed shows normal sinus rhythm with normal intervals and no ST or T-wave changes. Subsequent EKGs during chest pain were obtained and showed no acute changes. We will treat chest pain with nitroglycerin and morphine. She received several doses of morphine so far. She is certainly at high risk for morbidity mortality and complications due to multiple doses of IV opiates. Plan: We will place the patient in observation under the care of our service. Monitor on telemetry. Trend troponin. Obtain echocardiogram. Obtain lower extremity Doppler. I will also obtain a CT angiogram of the chest stat to rule out PE given severe , rapidly escalating chest pain associated with shortness of breath and leg swelling. I will sign this out to the night team.
--- NOTE | 2016-08-14 19:41 | Internal Med History&Physical ---
Date of Encounter: 08/14/16 Time of Encounter: 19:38 Assessment and Plan (1) Chest pain Current visit: Yes Status: Acute That started in the ED and persisted despite 2 doses of morphine. Initial troponin negative, EKG without acute ST changes. CXR non-acute. Concern for possible PE with acute onset of chest pain. We will check d-dimer and VQ scan ( cannot have CTA due to SAM). If d-dimer positive VQ scan intermediate will need to anticoagulate. Continue to trend troponin. Pain control with morphine , nitroglycerin. Qualifiers: Chest pain type: unspecified Qualified Code(s): R07.9 - Chest pain, unspecified (2) Lower extremity edema Current visit: Yes Status: Acute Reports bilateral lower extremity edema and pain for 1 week prior to admission. With trace non-pitting edema on exam. Low suspicion for VTE but we will check bilateral dopplers. Last echo September 2015 with EF 55%. Does not appear overtly overloaded on exam. Will check echo as well. Hold on diuresis at this time. Qualifiers: Laterality: bilateral Qualified Code(s): R60.0 - Localized edema (3) Seizure Current visit: Yes Status: Acute Per history. Continue home AEDs. Seizure precautions. (4) Anemia Current visit: No Status: Acute Per history. Hgb 10 (which appears at baseline). Intermittently monitor CBC. Qualifiers: Anemia type: unspecified type Qualified Code(s): D64.9 - Anemia, unspecified (5) DVT prophylaxis Current visit: Yes Status: Acute [facility] Internal Medicine - H&P: HPI Chief complaint: My legs are swollen History of present illness: Ms. Mccarthy is a 65 year old female with past medical history seizures and COPD who presented to [facility] on 2016 with complaints of bilateral lower leg swelling. While in the ED she had an acute onset of chest pain, she was placed in observation status for ACS rule out further workup and treatment. Information obtained from chart review and patient report. Patient reports lower leg swelling started over the last week. She says she has pain in her legs when she walks. She is to stop in order to make the pain go away. She reports an acute episode of chest pain in the ED she is chest pain was midsternal radiated to back, described as sharp rates 10 out of 10, nothing worsened and morphine relieve. On my exam her only complaint is the lower extremity swelling she does complain of some chest pain which she takes a deep breath otherwise she has no complaints Past Med Surg Social Fam HX - Past Medical History Medical history: COPD, CVA, seizures Psychiatric history: anxiety - Past Surgical History Surgical History: hysterectomy, knee replacement, other - Social History Smoking Status: Never smoker Smokeless Tobacco Status: No Alcohol use: none Drug use: none - Family History Mother Hx Family Cardiac Disorders: Yes Hx Family Respiratory Disorders: No Hx Family Cancer: Yes (breast cancer) Hx Family GI Disorders: No Hx Family Endocrine Disorder: No Hx Family Neuromuscular Disorders: No Hx Family Neurologic Disorders: No Hx Family HEENT Disorders: No Hx Family Autoimmune Disorders: No Internal Medicine - H&P: Meds Lamotrigine [Lamictal] 200 mg PO BID 04/12/15 [History] Mv W-Ca/Iron/FA/Lutein/Hrb#179 [Renato Multivit For Women Caplet] 1 tab PO DAILY 04/12/15 [History] Cyclosporine [Restasis] 1 drop OP BID 10/04/15 [History] Topiramate [Topamax] 100 mg PO BID 10/04/15 [History] Topiramate [Topamax] 200 mg PO BID 03/06/16 [History] LORazepam [Ativan] 1 mg PO HS PRN 07/05/16 [History] Acetaminophen [Tylenol] 325 mg PO Q6HR PRN 08/14/16 [History] Aspirin 81 mg PO DAILY 08/14/16 [History] Citalopram Hydrobromide [Celexa] 40 mg PO DAILY 08/14/16 [History] Ferrous Sulfate 325 mg PO BIDWM 08/14/16 [History] Montelukast [Singulair] 10 mg PO QPM 08/14/16 [History] Pantoprazole Sodium [Protonix] 40 mg PO DAILY 08/14/16 [History] Allergies dextromethorphan Allergy (Severe, Verified 08/14/16 10:42) Seizure doxylamine Allergy (Severe, Verified 08/14/16 10:42) Seizure hydrocortisone [From Hydrocortone] Allergy (Severe, Verified 08/14/16 10:42) Seizure Iodinated Contrast Media - Oral and [Iodinated Contrast Media - IV Dye] Allergy (Severe, Verified 08/14/16 10:42) Hives Oxycodone Allergy (Severe, Verified 08/14/16 10:42) Seizure pseudoephedrine Allergy (Severe, Verified 08/14/16 10:42) Seizure hydrocodone [From Vicodin] Allergy (Verified 08/14/16 10:42) See Comments ibuprofen Allergy (Verified 08/14/16 10:42) Hives acetaminophen [From NyQuil] Adverse Reaction (Verified 08/14/16 10:42) See Comments diphenhydramine [From Benadryl] Adverse Reaction (Verified 08/14/16 10:42) Nausea All Systems PM: A 10-system review of systems was performed and is negative for pertinent findings except as documented above in the HPI. - Constitutional Constitutional: no chills, no fever(s), no night sweats - EENT Eyes: no change in vision, no discharge, no pain, no photophobia Ears: no ear discharge, no ear pain, no tinnitus Nose, mouth and throat: no dysphagia, no nasal discharge, no neck pain, no sore throat - Cardiovascular Cardiovascular ROS IM: chest pain, edema, no diaphoresis, no dyspnea, no lightheadedness, no palpitations, no syncope - Respiratory Respiratory: no cough, no dyspnea, no wheezing, no excessive phlegm production - Gastrointestinal Gastrointestinal: no abdominal pain, no diarrhea, no hematemesis, no hematochezia, no melena, no nausea, no vomiting - Genitourinary Genitourinary: no change in urinary stream, no dysuria, no flank pain, no hematuria - Musculoskeletal Musculoskeletal ROS IM: no numbness, no tingling - Integumentary Integumentary IM: no rash, no unusual bruising - Neurological Neurological ROS: no confusion, no convulsions, no focal weakness, no numbness, no tingling, no tremor(s) - Hematologic/Lymphatic Hematologic/Lymphatic: no easy bruising - Constitutional Vitals: Temp Pulse Resp BP Pulse Ox 98.3 F 69 23 161/89 100 08/14/16 19:11 08/14/16 19:11 08/14/16 19:11 08/14/16 19:11 08/14/16 19:11 General appearance: Present: A&O X 3 - Head Head exam: Present: atraumatic, normocephalic - Eye Eye exam: Present: PERRL, conjuntiva pink, sclera anicteric Pupils: Present: PERRL - Neck Neck exam general surgery: Present: supple, trachea midline. Absent: lymphadenopathy - Respiratory Respiratory exam: Present: CTAB. Absent: accessory muscle use, rales, rhonchi, wheezes - Cardiovascular Cardiovascular exam: Present: RRR, +S1, +S2. Absent: diastolic murmur, gallop, rubs, systolic murmur Additional comments: Trace to mild nonpitting pedal edema with sock brady - GI/Abdominal GI/Abdominal exam: Present: normal bowel sounds, soft, no peritoneal signs. Absent: distended, tenderness - Extremities Exam Extremities exam: Present: warm, radial pulses palpable and symetrical. Absent : calf tenderness, cyanotic, pedal edema - Neurological Exam Neurological exam: Present: CN II-XII intact, oriented X3, no focal deficits. Absent: pronater drift, facial droop, speech deficit - Skin Skin exam: Present: dry, intact Internal Med - H&P Results - Labs CBC & Chem 7: 08/14/16 13:46 08/14/16 13:46
[2016-08-14] MEDS: lamoTRIgine 100 MG TABLET PO SCH (20:04)
[2016-08-14] MEDS: Topiramate 100 MG TABLET PO SCH (20:04)
[2016-08-14] MEDS ORDERED: TOPIRAMATE 200 MG PO SCH (21:00)
[2016-08-15 01:43] LABS: Basophils % 0.6 %; Eosinophils # 0.2 K/mcL (0.0-0.6); Eosinophils % 2.9 %; Hematocrit 32.1 % (35.3-44.9); Hemoglobin 9.9 g/dL (11.5-15.4); Immature Granulocytes % 0.2 % (0-4); Lymphocytes # 1.6 K/mcL (0.6-4.6); Mean Corpuscular HGB Conc 30.8 g/dL (31.6-35.5); Mean Corpuscular Hemoglobin 29.2 pg (28.0-33.3); Mean Corpuscular Volume 94.7 fL (83.0-100.0); Mean Platelet Volume 10.1 fL (9.4-12.4); Monocytes # 0.5 K/mcL (0.0-1.3); Monocytes % 9.4 %; Neutrophils # 2.9 K/mcL (1.6-8.9); Platelet Count 211 K/mcL (140-400); Red Blood Count 3.39 M/mcL (3.82-4.97); Segmented Neutrophils % 55.9 %
[2016-08-15 02:02] LABS: Alanine Aminotransferase 7 Units/L (0-55); Albumin 3.1 g/dL (3.5-5.0); Albumin/Globulin Ratio 1.3 (1.1-2.2); Alkaline Phosphatase 104 Units/L (38-126); Aspartate Amino Transferase 13 Units/L (5-34); BUN/Creatinine Ratio 8 (6-26); Bilirubin,Total 0.4 mg/dL (0.2-1.2); Blood Urea Nitrogen 9 mg/dL (7-20); Calcium 8.3 mg/dL (8.6-10.8); Carbon Dioxide 24 mEq/L (19-29); Chloride 112 mEq/L (98-109); Globulin 2.4 g/dL (2.4-3.5); Glucose 98 mg/dL (70-99); Osmolality,Calculated 291 (280-300); Potassium 3.4 mEq/L (3.5-4.5); Sodium 141 mEq/L (136-145); Total Protein 5.5 g/dL (6.0-8.3); eGFR For African Americans > 60 (> 60); eGFR For Non-African Americans 51 (> 60)
[2016-08-15] MEDS ORDERED: traMADol 50 MG TABLET PO ONE (03:29)
[2016-08-15] MEDS ORDERED: *HR* Enoxaparin 40 MG/0.4 ML SYRINGE SQ SCH (06:00)
[2016-08-15] MEDS: Topiramate 100 MG TABLET PO SCH ×2 (07:39→21:33)
[2016-08-15] MEDS: lamoTRIgine 100 MG TABLET PO SCH ×2 (07:40→21:33)
[2016-08-15] MEDS: Aspirin 81 MG TAB.CHEW PO SCH (07:40)
[2016-08-15 09:05] LABS: Bilirubin,Urine Negative (Negative); Blood,Urine Negative (Negative); Color,Urine Yellow (Yellow); Glucose,Urine (UA) Normal (Normal); Ketones,Urine Negative (Negative); Leukocyte Esterase,Urine Small (Negative); Nitrite,Urine Negative (Negative); Protein,Urine Negative (Neg-Trace); Specific Gravity,Urine 1.016 (1.010-1.025); Urobilinogen,Urine Normal (Normal)
[2016-08-15 09:08] LABS: Bacteria,Urine None Seen per hpf (None-Few); Clarity,Urine Clear (Clear); Hyaline Casts,Urine None Seen per lpf (None-Few); Squamous Epithelial Cell,Urine Many per lpf (None-Few)
[2016-08-15] MEDS: Ondansetron ODT 4 MG TAB.RAPDIS SL PRN (09:08)
[2016-08-15] MEDS ORDERED: SUMAtriptan 6 MG/0.5 ML SQ ONE (10:04)
--- NOTE | 2016-08-15 11:21 | Electrocardiograph Report ---
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
--- NOTE | 2016-08-15 11:23 | Electrocardiograph Report ---
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
[2016-08-15] MEDS: *HR* Morphine 2 MG/ML SYRINGE IVP PRN (15:49)
--- NOTE | 2016-08-15 16:39 | Electrocardiograph Report ---
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
--- NOTE | 2016-08-15 18:58 | Internal Med Progress Note ---
Date of Encounter: 08/15/16 Time of Encounter: 15:00 - Assessment and plan (1) Unstable angina Current Visit: Yes Status: Acute Assessment and plan: She has recurrent chest pain at rest consistent with unstable angina. I have reviewed her EKG which shows normal sinus rhythm with no acute ST or T-wave changes and no change from her prior EKG. I will check a stat troponin. Continue with nitroglycerin and morphine as needed for chest pain. We will start treatment with heparin drip per ACS protocol. Will consult cardiology. The patient will need further cardiac workup either a stress test or a cardiac catheterization. We will continue with telemetry for now. (2) Depression Current Visit: No Status: Chronic Qualifiers: Depression Type: reactive depression Qualified Code(s): F32.9 - Major depressive disorder, single episode, unspecified (3) COPD (chronic obstructive pulmonary disease) Current Visit: No Status: Chronic Assessment and plan: We will treat her with inhaled albuterol as needed. Qualifiers: COPD type: chronic bronchitis Chronic bronchitis type: simple Qualified Code(s): J41.0 - Simple chronic bronchitis (4) Lower extremity edema Current Visit: Yes Status: Acute Assessment and plan: Follow-up echocardiogram report. Qualifiers: Laterality: bilateral Qualified Code(s): R60.0 - Localized edema (5) Seizure Current Visit: Yes Status: Acute (6) DVT prophylaxis Current Visit: Yes Status: Acute Assessment and plan: We will be on heparin drip. We will stop Lovenox. (7) Chest pain Current Visit: Yes Status: Acute Assessment and plan: Her chest pain was concerning for PE and therefore VQ scan was done last night and showed a low probability for PE. Qualifiers: Chest pain type: unspecified Qualified Code(s): R07.9 - Chest pain, unspecified - Subjective Interval history: The patient presented with chest pain last night. She was chest pain-free after receiving nitroglycerin. Today in the afternoon she reported severe chest pain again that lasted for more than 30 minutes. She was treated with nitroglycerin and morphine and this started to subside. - Constitutional Vitals: Temp Pulse Resp BP Pulse Ox 98.4 F 62 18 149/83 97 08/15/16 15:46 08/15/16 15:46 08/15/16 15:46 08/15/16 15:46 08/15/16 15:46 General appearance: Present: A&O X 3 - Respiratory Respiratory exam: Present: CTAB. Absent: accessory muscle use, rales, rhonchi, wheezes - Cardiovascular Cardiovascular exam: Present: RRR, +S1, +S2. Absent: diastolic murmur, gallop, rubs, systolic murmur - GI/Abdominal GI/Abdominal exam: Present: normal bowel sounds, soft, no peritoneal signs. Absent: distended, tenderness - Extremities Exam Extremities exam: Present: warm, radial pulses palpable and symetrical. Absent : calf tenderness, cyanotic, pedal edema - Skin Skin exam: Present: dry, intact Internal Medicine: Result - Labs CBC & Chem 7: 08/15/16 01:16 08/15/16 01:16 Labs: Short CBC 08/15/16 Range/Units 01:16 WBC 5.1 (4.3-11.1) K/mcL Hgb 9.9 L (11.5-15.4) g/dL Hct 32.1 L (35.3-44.9) % Plt Count 211 (140-400) K/mcL Neutrophils # 2.9 (1.6-8.9) K/mcL BMP 08/15/16 01:16 Sodium 141 Potassium 3.4 L Chloride 112 H Carbon Dioxide 24 BUN 9 Creatinine 1.09 Glucose 98 Calcium 8.3 L Cardiac Enzymes 08/14/16 08/15/16 08/15/16 Range/Units 19:22 01:16 07:37 Troponin I 0.01 0.01 0.01 (0-0.03) ng/mL Liver Function 08/15/16 Range/Units 01:16 Total Bilirubin 0.4 (0.2-1.2) mg/dL AST 13 (5-34) Units/L ALT 7 (0-55) Units/L Alkaline Phosphatase 104 (38-126) Units/L Albumin 3.1 L (3.5-5.0) g/dL Urine 08/15/16 Range/Units 08:50 Urine Color Yellow (Yellow) Urine Clarity Clear (Clear) Urine pH 7.0 (5.0-8.0) pH Units Ur Specific [place] 1.016 (1.010-1.025) Urine Protein Negative (Neg-Trace) mg/dL Urine Glucose (UA) Normal (Normal) mg/dL - ABG Interpretation ABG results: PT/INR, D-dimer D-Dimer 503 ng/mLFEU (0-500) H 08/14/16 19:29 - Impressions Impressions Pulmonary Perfusion Imaging 08/14/16 19:22 IMPRESSION: Low Probability for Pulmonary Embolus. D/ / Jackson La MD / Jackson La MD Interpreting Provider: Jackson La MD Consult Discharge Plan - Plan Referrals: Maryann Saba, CO[employer]APPER [Primary Care Provider] -
[2016-08-15] MEDS ORDERED: *HR* Heparin 5,000 UNIT/ML VIAL IVP PRN ×2 (20:23)
[2016-08-15] MEDS ORDERED: *HR* Heparin 5,000 UNIT/ML VIAL IVP ONE (20:23)
[2016-08-15] MEDS ORDERED: Heparin 25,000 UNIT/500 ML D5W 25,000 UNIT/500 ML MLS IVC SCH (20:30)
[2016-08-16] MEDS: Ondansetron ODT 4 MG TAB.RAPDIS SL PRN (03:41)
[2016-08-16 04:35] LABS: Basophils % 0.9 %; Eosinophils # 0.1 K/mcL (0.0-0.6); Eosinophils % 2.2 %; Hematocrit 35.5 % (35.3-44.9); Hemoglobin 10.8 g/dL (11.5-15.4); Immature Granulocytes % 0.2 % (0-4); Lymphocytes # 1.1 K/mcL (0.6-4.6); Lymphocytes % 23.9 %; Mean Corpuscular HGB Conc 30.4 g/dL (31.6-35.5); Mean Corpuscular Hemoglobin 28.4 pg (28.0-33.3); Mean Corpuscular Volume 93.4 fL (83.0-100.0); Mean Platelet Volume 9.9 fL (9.4-12.4); Monocytes # 0.3 K/mcL (0.0-1.3); Monocytes % 7.1 %; Neutrophils # 3.1 K/mcL (1.6-8.9); Platelet Count 231 K/mcL (140-400); Red Cell Distribution Width 17.9 % (11.5-14.5); Segmented Neutrophils % 65.7 %
--- NOTE | 2016-08-16 04:41 | Event Note ---
Date of Encounter: 08/16/16 Time of Encounter: 04:40 Patient had an episode of dysarthria lasted for about 30 minutes. She felt fine after she woke from sleep and then this event happened. CT head no bleed or acute stroke. Rest of neuro exam unremarkable. Reassessed the patient again and she ahs no focal neuro deficits.
[2016-08-16 05:39] LABS: BUN/Creatinine Ratio 8 (6-26); Blood Urea Nitrogen 7 mg/dL (7-20); Calcium 8.8 mg/dL (8.6-10.8); Carbon Dioxide 20 mEq/L (19-29); Chloride 110 mEq/L (98-109); Glucose 107 mg/dL (70-99); Osmolality,Calculated 286 (280-300); Potassium 3.6 mEq/L (3.5-4.5); Sodium 139 mEq/L (136-145); eGFR For African Americans > 60 (> 60); eGFR For Non-African Americans > 60 (> 60)
--- NOTE | 2016-08-16 07:01 | ECHO - Doppler Report ---
Echo with Saline Contrast Name: Rocio Mccarthy Date of Study: 08/15/2016 Date: 1950 Ht: 64.0 in Medical Record#: [id number] Age: 65 Wt: 225.0 lb Gender: Female BSA: 2.06 Order #: [id number] Location: [facility] Room #: 3A14 Reading Physician: Dax Billingsley MD, [facility] Performance Analyst: Arianna Gregg Ordering Physician: Lexi Alvarenga CNP Primary Physician: Jitendra Reyna DO Indications: Chest pain Impressions: Normal LV systolic function, LVEF 55-60%. Normal left ventricular diastolic function. Normal right ventricular size and function. Agitated saline contrast was performed, but was poor in quality. Cannot rule-out a PFO on this study. No significant valvular dysfunction. No evidence of pulmonary hypertension. Left Ventricular Wall Motion: Rest Echo Findings All wall segments showed normal motion. Findings: Study Quality * Technically adequate exam. ECG Findings * Normal sinus rhythm. Left Ventricle * Normal LV systolic function, LVEF 55-60%. * Normal LV chamber size and wall thickness. * Normal left ventricular diastolic function. Right Ventricle * Normal right ventricular size and function. Left Atrium * Normal left atrial size. Right Atrium * Normal right atrial size. Interatrial Septum * Agitated saline contrast was performed, but was poor in quality. Cannot rule-out a PFO on this study. Aorta * Normally sized aortic root. Pericardium * There is no pericardial effusion present. IVC * The IVC is mildly dilated with normal inspiratory collapse. Aortic Valve * Trileaflet aortic valve. * No aortic stenosis. * No aortic regurgitation. Mitral Valve * Normal mitral valve structure. * No mitral stenosis. * Trace mitral regurgitation. Tricuspid Valve * Normal tricuspid valve structure. * No tricuspid stenosis. * Trace tricuspid regurgitation. * No evidence of pulmonary hypertension. Pulmonic Valve * Pulmonic valve not well visualized. * No pulmonic stenosis. * Trace pulmonic regurgitation. History Family History of CAD 10/04/2015 a Previous Echo was performed. Contrast: Agitated saline 50 ml. Measurements: BP: 120/ 78 2D Normal Values RVIDd: 3.40 cm IVSd: .90 cm 0.6 - 1.0 cm LVIDd: 5.10 cm 3.7 - 5.6 cm LVPWd: .90 cm 0.6 - 1.1 cm LVIDs: 3.60 cm 1.5 - 3.6 cm AO: 3.40 cm < 4.0 cm %FS: 29.40 cm >25 % LA volume: 62 Mitral Valve Peak E:1.02 m/sec Peak A:.83 m/sec E/A Ratio:1.2 Tricuspid Valve TV Regurg Peak Grad: 26.00mmHg TV Regurg Peak Adrien: 2.54m/sec Updated by Dax Billingsley MD, [facility] on 08/16/2016 6:55:22 AM electronically signed on 08/16/2016 6:56:00 AM with status of Final Wall Motion Roe: 1=Normal, 2=Hypokinesis, 3=Akinesis, 4=Dyskinesis, 5=Aneurysmal, 6=Hyperkinetic, X=Not Visualized (Blank)=Missing
--- NOTE | 2016-08-16 09:10 | Cardiology Consult Note ---
Date of Encounter: 08/16/16 Time of Encounter: 09:10 Assessment and Plan (1) Chest pain Current Visit: Yes Status: Acute Per Cardiology: Patient with atypical chest pain and reproducible upon exam today with position changes, deep inspiration, and palpation. Troponins negative 5. Echo showed EF preserved 55-60%, no significant valvular dysfunction, no segment wall motion abnormal modalities. Had recent negative stress test June 2016 with nuclear exam negative for ischemia. Additionally, patient had catheterization February 2014 that showed normal coronary angiogram. Suspect noncardiac chest pain. We' ll discontinue IV heparin drip. D-dimer mildly elevated in the 500s with VQ scan showing low probability for PE. No further cardiac recommendations. Discussed and reviewed with Dr. Gastelum. Patient verbalized understanding and agreed with plan. Cardiology will sign off, re-consult as needed, follow-up with PCP. Qualifiers: Chest pain type: chest pain on breathing Qualified Code(s): R07.1 - Chest pain on breathing (2) Lower extremity edema Current Visit: Yes Status: Acute Per Cardiology: Presented with concerns with bilateral lower extremity edema. Again, preserved EF on echo and BNP 60. Right lower extremity appears larger in size than left. Consider venous duplex if deemed appropriate. Qualifiers: Laterality: bilateral Qualified Code(s): R60.0 - Localized edema Discussion w patient/family: The assessment and plan as outlined above was discussed with the patient who expressed understanding and agreement. All questions were answered. Thank you for involving us in the care of your patient. Please call with any questions. History of Present Illness Consult date: 08/16/16 Requesting physician: Arash Cabrera Consult reason: CP Chief complaint: Leg swelling History of present illness: Ms. Mccarthy is a 65 year old female with relevant past history of COPD, CVA, seizures, history of coil embolization of right cavernous sinus. Cardiology consult for chest pain. Patient reports she presented to the ER due to concerns of bilateral lower extremity swelling and leg weakness. She developed midsternal sharp stabbing pain that lasted for a few hours and eventually subsided. Prior to this episode she denies any chest pain symptoms at rest or with exertion. She denies any increase in her baseline fatigue. She denies any dyspnea on exertion. Denies any dizziness, syncope, falls. Reports history of "epilepsy". She denies any palpitations. Patient experienced midsternal sharp pressure upon exam today with position change which was worse with deep inspiration and palpation. She reports had catheterization not too long ago and was told "she is a very healthy heart". Past Med Surg Social Fam HX - Past Medical History Attestation: Yes The following information was validated with the patient. Source: patient, old records reviewed Medical history: COPD, CVA, seizures Psychiatric history: anxiety - Past Surgical History Surgical History: hysterectomy, knee replacement, other - Social History Smoking Status: Never smoker Smokeless Tobacco Status: No Alcohol use: none Drug use: none - Family History Mother Hx Family Cardiac Disorders: Yes (Reports mother of a heart attack at 80) Hx Family Respiratory Disorders: No Hx Family Cancer: Yes (breast cancer) Hx Family GI Disorders: No Hx Family Endocrine Disorder: No Hx Family Neuromuscular Disorders: No Hx Family Neurologic Disorders: No Hx Family HEENT Disorders: No Hx Family Autoimmune Disorders: No Medications and Allergies Lamotrigine [Lamictal] 200 mg PO BID 04/12/15 [History] Mv W-Ca/Iron/FA/Lutein/Hrb#179 [Renato Multivit For Women Caplet] 1 tab PO DAILY 04/12/15 [History] Cyclosporine [Restasis] 1 drop OP BID 10/04/15 [History] Topiramate [Topamax] 100 mg PO BID 10/04/15 [History] Topiramate [Topamax] 200 mg PO BID 03/06/16 [History] LORazepam [Ativan] 1 mg PO HS PRN 07/05/16 [History] Acetaminophen [Tylenol] 325 mg PO Q6HR PRN 08/14/16 [History] Aspirin 81 mg PO DAILY 08/14/16 [History] Citalopram Hydrobromide [Celexa] 40 mg PO DAILY 08/14/16 [History] Ferrous Sulfate 325 mg PO BIDWM 08/14/16 [History] Montelukast [Singulair] 10 mg PO QPM 08/14/16 [History] Pantoprazole Sodium [Protonix] 40 mg PO DAILY 08/14/16 [History] Allergies dextromethorphan Allergy (Severe, Verified 08/14/16 10:42) Seizure doxylamine Allergy (Severe, Verified 08/14/16 10:42) Seizure hydrocortisone [From Hydrocortone] Allergy (Severe, Verified 08/14/16 10:42) Seizure Iodinated Contrast Media - Oral and [Iodinated Contrast Media - IV Dye] Allergy (Severe, Verified 08/14/16 10:42) Hives Oxycodone Allergy (Severe, Verified 08/14/16 10:42) Seizure pseudoephedrine Allergy (Severe, Verified 08/14/16 10:42) Seizure hydrocodone [From Vicodin] Allergy (Verified 08/14/16 10:42) See Comments ibuprofen Allergy (Verified 08/14/16 10:42) Hives diphenhydramine [From Benadryl] Adverse Reaction (Verified 08/14/16 10:42) Nausea All Systems Review: A 10-system review of systems was performed and is negative for pertinent findings except as documented above in the HPI. - Cardiovascular Cardiovascular: as per HPI, chest pain at rest, leg edema Physical Examination Vital Signs, Last 4 Hours Temp Pulse Resp BP Pulse Ox 08/16/16 08:31 98.5 F 66 16 119/66 95 08/16/16 07:15 98.0 F 65 16 101/68 96 General: Conversant, No Apparent Distress HEENT: Atraumatic, Normocephaly, Mucus Membranes Moist Cardiac: Reg Rate and Rhythm, Normal S1 and S2, No Murmur Lungs: Normal Breath Sounds, No Wheeze, Rales, Rhonchi Neuro: Alert and responsive, No focal deficits noted Abdomen: Soft Skin: No rashes noted on visualized skin Musculoskeletal: Other (Midsternal chest discomfort with palpation, deep inspiration, and movement) Extremities: No Edema, Other (R leg greater than L in size) Results 08/16/16 03:51 08/16/16 03:51 Lab Results Laboratory Tests 08/14/16 08/14/16 08/14/16 13:46 19:22 19:29 D-Dimer 503 H Troponin I 0.00 0.01 B-Natriuretic Peptide Ur Leukocyte Esterase Ur Squamous Epith Cells Ur Culture Indicated? 08/15/16 08/15/16 08/15/16 01:16 01:16 07:37 D-Dimer Troponin I 0.01 0.01 B-Natriuretic Peptide 60 Ur Leukocyte Esterase Ur Squamous Epith Cells Ur Culture Indicated? 08/15/16 08/15/16 08:50 19:03 D-Dimer Troponin I 0.00 B-Natriuretic Peptide Ur Leukocyte Esterase Small H Ur Squamous Epith Cells Many H Ur Culture Indicated? YES A ITS Impressions Chest X-Ray 08/14/16 13:23 IMPRESSION: No acute process. D/ / Abilio Hess MD / Abilio Hess MD Interpreting Provider: Abilio Hess MD Pulmonary Perfusion Imaging 08/14/16 19:22 IMPRESSION: Low Probability for Pulmonary Embolus. D/ / Jackson La MD / Jackson La MD Interpreting Provider: Jackson La MD Head CT 08/16/16 02:29 IMPRESSION: No acute intracranial abnormality. 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 D/ / Dada Bolaños MD / Dada Bolaños MD Interpreting Provider: Dada Bolaños MD Active Medications Aspirin (Aspirin) 81 mg PO DAILY [facility] Stop: 02/14/17 09:01 Last Admin: 08/16/16 09:12 Dose: 81 mg Citalopram Hydrobromide (Celexa) 40 mg PO DAILY [facility] Stop: 02/14/17 09:01 Last Admin: 08/16/16 09:12 Dose: 40 mg Ferrous Sulfate (Ferrous Sulfate) 325 mg PO BIDWM [facility]O Stop: 02/14/17 08:01 Last Admin: 08/16/16 09:12 Dose: 325 mg Heparin Sodium (Porcine) (Heparin) 4,000 unit IVP Q6HR PRN PRN Reason: SEE COMMENTS Stop: 02/14/17 20:24 Last Admin: 08/16/16 06:29 Dose: 4,000 unit Lamotrigine (Lamictal) 200 mg PO BID [facility] Stop: 02/13/17 21:01 Last Admin: 08/16/16 09:13 Dose: 200 mg Lorazepam (Ativan) 1 mg PO HS PRN PRN Reason: Sleep Stop: 02/13/17 18:40 Montelukast Sodium (Singulair) 10 mg PO QPM [facility] Stop: 02/14/17 18:01 Last Admin: 08/15/16 19:13 Dose: 10 mg Morphine Sulfate (Morphine Sulfate) 2 mg IVP Q4HR PRN PRN Reason: Severe Pain (7-10) Stop: 02/13/17 18:23 Last Admin: 08/15/16 15:49 Dose: 2 mg Naloxone HCl (Narcan) 0.4 mg IVP Q2MIN PRN PRN Reason: Opioid Reversal Stop: 02/13/17 18:23 Omeprazole (Prilosec) 20 mg PO 0730 [facility] Stop: 02/14/17 07:31 Last Admin: 08/16/16 09:15 Dose: 20 mg Ondansetron HCl (Zofran Odt) 4 mg SL Q8HR PRN PRN Reason: Nausea And Vomiting Stop: 02/13/17 18:23 Last Admin: 08/16/16 03:41 Dose: 4 mg Pharmacy Profile Note (Patient Taking Own Medication) 0 each OP BID [facility] Stop: 02/14/17 10:01 Last Admin: 08/16/16 09:13 Dose: Not Given Topiramate (Topamax) 300 mg PO BID [facility] Stop: 02/13/17 21:01 Last Admin: 08/16/16 09:12 Dose: 300 mg - Imaging and Cardiology Chest Xray: report reviewed Stress Test: report reviewed Echo: report reviewed Cardiac cath: report reviewed - EKG Interpretation EKG results cardiology: personally reviewed (Flipped T waves in V leads), sinus rhythm Consult Discharge Plan - Plan Referrals: Maryann Saba, [employer]IVER [Primary Care Provider] -
[2016-08-16] MEDS: Topiramate 100 MG TABLET PO SCH (09:12)
[2016-08-16] MEDS: Aspirin 81 MG TAB.CHEW PO SCH (09:12)
[2016-08-16] MEDS: lamoTRIgine 100 MG TABLET PO SCH (09:13)
--- NOTE | 2016-08-16 11:03 | Electrocardiograph Report ---
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
[2016-08-16] MEDS: *HR* Morphine 2 MG/ML SYRINGE IVP PRN (11:19)
[2016-08-16 11:33] VITALS: BP 121/69
--- NOTE | 2016-08-16 13:05 | Electrocardiograph Report ---
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
--- NOTE | 2016-08-16 13:44 | Venous Imaging Report ---
LE Venous Duplex Patient Name:Rocio Mccarthy Order Number:[id number] Procedure Date:08/15/2016 Date:1950ge:65 yrs Gender:Female Location:[facility] Room #: 3A14 Client Account Manager:Arianna Gregg Referring MD:Lexi Alvarenga CNP web designer:Maryann Saba CNP Reading MD:Alex Luis MD Primary Indications:Chest pain Secondary Indications: Impressions: Bilateral lower extremity: normal superficial and deep exam. Lower Extremity Venous Duplex Side Vein Compress Spontaneous Flow Augment Diameter (cm) Depth (cm) Right Distal Iliac Normal Yes Phasic Yes Right Common Femoral Normal Yes Phasic Yes Right Superficial Femoral Normal Yes Phasic Yes Right Popliteal Normal Yes Phasic Yes Right Posterior Tibial Normal Yes Phasic Yes Right Peroneal Normal Yes Phasic Yes Right Saphenofemoral [place] Normal Yes Phasic Yes Right Great Saphenous Normal Yes Phasic Yes Right Lesser Saphenous Normal Yes Phasic Yes Left Distal Iliac Normal Yes Phasic Yes Left Common Femoral Normal Yes Phasic Yes Left Superficial Femoral Normal Yes Phasic Yes Left Popliteal Normal Yes Phasic Yes Left Posterior Tibial Normal Yes Phasic Yes Left Peroneal Normal Yes Phasic Yes Left Saphenofemoral [place] Normal Yes Phasic Yes Left Great Saphenous Normal Yes Phasic Yes Left Lesser Saphenous Normal Yes Phasic Yes Updated by Alex Luis MD on 08/16/2016 1:35:59 PM electronically signed on 08/16/2016 1:36:19 PM with status of Final
--- NOTE | 2016-08-16 14:23 | Discharge Summary ---
Date of Encounter: 08/16/16 Time of Encounter: 10:00 - Discharge Diagnosis (1) Unstable angina Priority: Secondary Status: Acute (2) Depression Priority: Secondary Status: Chronic Qualifiers: Depression Type: reactive depression Qualified Code(s): F32.9 - Major depressive disorder, single episode, unspecified (3) COPD (chronic obstructive pulmonary disease) Priority: Secondary Status: Chronic Qualifiers: COPD type: chronic bronchitis Chronic bronchitis type: simple Qualified Code(s): J41.0 - Simple chronic bronchitis (4) Lower extremity edema Priority: Secondary Status: Acute Qualifiers: Laterality: bilateral Qualified Code(s): R60.0 - Localized edema (5) Seizure Priority: Secondary Status: Acute (6) Chest pain Priority: Primary Status: Acute Qualifiers: Chest pain type: intercostal pain Qualified Code(s): R07.82 - Intercostal pain - Discharge Medications Home Medications: Lamotrigine [Lamictal] 200 mg PO BID 04/12/15 [History] Mv W-Ca/Iron/FA/Lutein/Hrb#179 [Renato Multivit For Women Caplet] 1 tab PO DAILY 04/12/15 [History] Cyclosporine [Restasis] 1 drop OP BID 10/04/15 [History] Topiramate [Topamax] 100 mg PO BID 10/04/15 [History] Topiramate [Topamax] 200 mg PO BID 03/06/16 [History] LORazepam [Ativan] 1 mg PO HS PRN 07/05/16 [History] Acetaminophen [Tylenol] 325 mg PO Q6HR PRN 08/14/16 [History] Aspirin 81 mg PO DAILY 08/14/16 [History] Citalopram Hydrobromide [Celexa] 40 mg PO DAILY 08/14/16 [History] Ferrous Sulfate 325 mg PO BIDWM 08/14/16 [History] Montelukast [Singulair] 10 mg PO QPM 08/14/16 [History] Pantoprazole Sodium [Protonix] 40 mg PO DAILY 08/14/16 [History] Allergies/Adverse Reactions: Allergies dextromethorphan Allergy (Severe, Verified 08/14/16 10:42) Seizure doxylamine Allergy (Severe, Verified 08/14/16 10:42) Seizure hydrocortisone [From Hydrocortone] Allergy (Severe, Verified 08/14/16 10:42) Seizure Iodinated Contrast Media - Oral and [Iodinated Contrast Media - IV Dye] Allergy (Severe, Verified 08/14/16 10:42) Hives Oxycodone Allergy (Severe, Verified 08/14/16 10:42) Seizure pseudoephedrine Allergy (Severe, Verified 08/14/16 10:42) Seizure hydrocodone [From Vicodin] Allergy (Verified 08/14/16 10:42) See Comments ibuprofen Allergy (Verified 08/14/16 10:42) Hives diphenhydramine [From Benadryl] Adverse Reaction (Verified 08/14/16 10:42) Nausea Procedures/tests Complete & Pending: Procedures Performed prior 72 hours Category Date Time Status CT stroke alert head wo con [CT] Stat Cat Scan 08/16/16 02:29 Completed ECG 12 lead ECG [ECG] Routine Y 08/15/16 16:07 Completed EKG [ECG 12 lead ECG] [ECG] Stat Y 08/16/16 02:45 Completed Date of admission: 08/15/16 21:03 Primary care physician: Maryann Saba CNP Consults: 08/16/16 09:09 Consult to Occupational Therapy [CONS] Stat Comment: Evaluate, develop and implement POC Reason for Consult: Placement Consult to Physical Therapy [CONS] Stat Comment: Evaluate, develop and implement POC Reason for Consult: Placement 08/16/16 14:18 Consult to Machinery Mechanic [CONS] Stat Reason for SW Consult: Discharge planning - Patient Status Disposition: Home, Self-Care Condition: Fair Overall status at discharge: patient is back to baseline - Discharge Instructions Follow Up With: Maryann Saba CNP [Primary Care Provider] - - Diet and Activity Activity: increase activity as tolerated Diet: low fat, low cholesterol, low salt diet Hospital course: Please refer to the H&P and consultation notes for further details. Briefly, Ms. Mccarthy is a 65 year old female with multiple medical comorbidities including seizure disorder, hypertension and obesity who presented to the hospital for lower extremity swelling. While evaluated in the emergency department she is started having severe left-sided chest pain and this became the focus of the visit. She was referred for admission to the medical service. She was placed on telemetry. Her EKG was nondiagnostic for ischemia. Serial troponins were negative. She continued to report severe sharp left-sided chest pain which responded to morphine. While admitted to the medical service she also reported having several partial seizures. This was not corroborated by staff. She had a d-dimer which was elevated. She had a VQ scan which was low probability for PE. The second day of admission she again complained of severe chest pain and she was started on heparin drip for treatment of unstable angina. At that time the evaluation was active ACS and the expectation was that patient will require heparin drip and cardiac catheterization, telemetry and medical management that required hospitalization for longer than 2 midnights. Cardiology was consulted and per their assessment her chest pain is likely musculoskeletal and noncardiac in nature. It was noted that she had a cardiac catheterization 2014 which was negative. There was no further cardiac testing indicated and the recommendation was to discontinue the heparin drip. Patient is currently chest pain-free. Additionally last night the patient complained of sudden onset left upper extremity weakness and facial droop and she was evaluated for possible stroke. CT of the head was negative and her symptoms completely resolved. Due to the multisystem complaints at this point the patients' reports are not very reliable, however she appears to be asymptomatic currently. She made a faster than expected improvement and currently is medically stable for discharge home. She has good family support and close follow-up with primary care physician. Currently the patient is medically clear for discharge home. She verbalizes understanding of the discharge plan. - Time Spent with Patient Total time spent providing and/or coordinating discharge services: - Constitutional Vitals: Temp Pulse Resp BP Pulse Ox 98.2 F 60 18 121/69 95 08/16/16 11:31 08/16/16 11:31 08/16/16 11:31 08/16/16 11:31 08/16/16 11:31 General appearance: Present: A&O X 3 - Respiratory Respiratory exam: Present: CTAB. Absent: accessory muscle use, rales, rhonchi, wheezes - Cardiovascular Cardiovascular exam: Present: RRR, +S1, +S2. Absent: diastolic murmur, gallop, rubs, systolic murmur
== END 2016-08-16 18:10 | disposition home or self-care (01) | DRG 313 ==
LOC: 3NENU 10:35 → EMEROO 10:35 → SUATTDRO 16:13 → 3NENU 16:55 → 3ANU 08-15 13:23
PROVIDERS: ADMIT Internal Medicine; ATTEND Internal Medicine

== ENCOUNTER 2017-05-16 17:39 | Observation (INO) ==
[2017-05-16] MEDS ORDERED: Aspirin 81 MG TAB.CHEW PO ONE (17:52)
--- NOTE | 2017-05-16 17:54 | Emergency Department Note ---
Disposition Clinical Impression: Chest pain, rule out acute myocardial infarction Disposition: Admitted As Inpatient Condition: Serious Forms: ED Satisfaction Letter Time of Disposition: 18:44 Chest Pain HPI - General Chief Complaint: ED Chest Pain Stated Complaint: CP Time Seen by Provider: 05/16/17 17:45 Source: patient Limitations: language barrier Vital Signs Reviewed: Yes Nursing Notes Reviewed: Yes - History of Present Illness HPI Narrative: 66-year-old female Pt complaint: chest pain Onset (ago): hour(s) Duration: intermittent Pain Location: substernal, left chest Severity: moderate Severity scale (1-10): 7 Quality: tightness, aching, heaviness Pain Radiation: neck, jaw/teeth Improves with: nothing Worsens with: nothing Associated symptoms: Reports: nausea, vomiting Treatments prior to arrival chest pain: none - Related Data Home Medications Medication Instructions Recorded Confirmed Lamotrigine [Lamictal] 200 mg PO BID 04/12/15 08/14/16 Mv W-Ca/Iron/FA/Lutein/Hrb#179 1 tab PO DAILY 04/12/15 08/14/16 [Renato Multivit For Women Caplet] Cyclosporine [Restasis] 1 drop OP BID 10/04/15 08/14/16 Topiramate [Topamax] 100 mg PO BID 10/04/15 08/14/16 Topiramate [Topamax] 200 mg PO BID 03/06/16 08/14/16 LORazepam [Ativan] 1 mg PO HS PRN 07/05/16 08/14/16 Acetaminophen [Tylenol] 325 mg PO Q6HR PRN 08/14/16 08/14/16 Aspirin 81 mg PO DAILY 08/14/16 08/14/16 Citalopram Hydrobromide [Celexa] 40 mg PO DAILY 08/14/16 08/14/16 Ferrous Sulfate 325 mg PO BIDWM 08/14/16 08/14/16 Montelukast [Singulair] 10 mg PO QPM 08/14/16 08/14/16 Pantoprazole Sodium [Protonix] 40 mg PO DAILY 08/14/16 08/14/16 Previous Rx's Medication Instructions Recorded Acetaminophen w/Cod 300-30 mg 1 each PO Q6HR #10 tablet 11/12/16 [Tylenol w/Codeine #3] Acetaminophen [Tylenol] 500 mg PO Q6HR #8 tablet 12/20/16 Permethrin Cream Rinse [Nix] 60 ml TP ONCE #1 liquid 02/22/17 Allergies Allergy/AdvReac Type Severity Reaction Status Date / Time dextromethorphan Allergy Severe Seizure Verified 03/09/17 17:57 doxylamine Allergy Severe Seizure Verified 03/09/17 17:57 hydrocortisone Allergy Severe Seizure Verified 03/09/17 17:57 [From Hydrocortone] Iodinated Contrast- Oral and Allergy Severe Hives Verified 03/09/17 17:57 IV Dye [Iodinated Contrast Media - IV Dye] Oxycodone Allergy Severe Seizure Verified 03/09/17 17:57 pseudoephedrine Allergy Severe Seizure Verified 03/09/17 17:57 hydrocodone [From Vicodin] Allergy See Verified 03/09/17 17:57 Comments ibuprofen Allergy Hives Verified 03/09/17 17:57 diphenhydramine AdvReac Nausea Verified 03/09/17 17:57 [From Benadryl] All systems ED: reviewed and negative except as stated. Review of Systems: As Per HPI Constitutional: Denies: fever Eyes: Denies: eye pain ENT ED: Denies: ear pain Cardiovascular: Reports: as per HPI, chest pain. Denies: palpitations, dyspnea on exertion Respiratory: Denies: cough, dyspnea Gastrointestinal: Denies: abdominal pain, nausea Genitourinary: Denies: urgency, dysuria Musculoskeletal: Denies: back pain Integumentary: Denies: rash Neurological: Denies: headache Psychiatric: Denies: anxiety Chest Pain PMH - Past Medical History Medical history: Reports: COPD, CVA, GERD, migraine, seizures Surgical history: Reports: hysterectomy, knee replacement, other Psychiatric history: Reports: anxiety, depression SENIOR C SOFTWARE DEVELOPER history: Reports: no SENIOR C SOFTWARE DEVELOPER history, 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 - Social History Smoking Status: Never smoker Alcohol use: Reports: none Drug use: Reports: none Physical Exam Constitutional: Elderly female appears older than stated age vital signs stable Eyes: PERRLA, sclera anicteric ENT & Mouth: MMM Neck: normal inspection, neck is supple Resp: CTA bilaterally, no resp distress CV: RRR, no m/g/r GI: normal inspection, soft, no guarding or rigidity Neuro: A&O3, CNII-XII grossly intact, JAMESON Skin: Right shoulder scar consistent with previous arthroplasty - General Limitations: language barrier General appearance: alert, in no apparent distress Course Course Narrative: 66-year-old female with chest pain at rest, presents complaining of chest pain about one to 2 hours prior to arrival, 6 out of 10 radiating into her left neck and upper extremity, given the onset and radiation of her pain, CBC BMP troponin and EKG were ordered. Concerning for anginal pain, plan for admission - Reevaluation(s) Reevaluation #1: D-dimer and troponin were negative, hospitalist paged for admission the patient took nitroglycerin, this completely relieved her chest pain, after taking it, she went from a 7 out of 10 down to a 3 out of 10 and then to 0 out of 10, second nitroglycerin was held after low blood pressure she is placed on maintenance fluid, given aspirin admitted to the hospital service Dr Hooper Time: 18:45 Vital Signs Temperature 98.9 F 05/16/17 17:41 Pulse Rate 80 05/16/17 17:41 Respiratory Rate 18 05/16/17 17:41 Blood Pressure 138/80 05/16/17 17:41 O2 Sat by Pulse Oximetry 96 05/16/17 17:41 Temperature 98.9 F 05/16/17 17:41 Pulse Rate 75 05/16/17 18:10 Respiratory Rate 20 05/16/17 18:10 Blood Pressure 124/68 05/16/17 18:10 O2 Sat by Pulse Oximetry 96 05/16/17 18:10 Oxygen Delivery Oxygen Delivery Room Air Chest Pain - Differential Diagnosis Likely: stable angina, unstable angina pectoris, atypical chest pain, costalchondritis, chest pain - Medical Records Medical records reviewed: Yes I reviewed the patient's medical records. - Lab Data Lab results reviewed: Yes I reviewed the patient's lab results. Result diagrams: 05/16/17 17:56 05/16/17 17:56 Lab Results 05/16/17 05/16/17 05/16/17 Range/Units 17:56 17:56 17:56 WBC 6.3 (4.3-11.1) K/mcL RBC 3.99 (3.82-4.97) M/mcL Hgb 11.8 (11.5-15.4) g/dL Hct 38.6 (35.3-44.9) % MCV 96.7 (83.0-100.0) fL MCH 29.6 (28.0-33.3) pg MCHC 30.6 L (31.6-35.5) g/dL RDW 14.1 (11.5-14.5) % Plt Count 243 (140-400) K/mcL MPV 9.1 L (9.4-12.4) fL Immature Gran % 0.3 (0-4) % Seg Neutrophils % 63.3 % Lymphocytes % 27.4 % Monocytes % 6.0 % Eosinophils % 2.2 % Basophils % 0.8 % Neutrophils # 4.0 (1.6-8.9) K/mcL Lymphocytes # 1.7 (0.6-4.6) K/mcL Monocytes # 0.4 (0.0-1.3) K/mcL Eosinophils # 0.1 (0.0-0.6) K/mcL Basophils # 0.1 (0.0-0.2) K/mcL D-Dimer 407 (0-500) ng/mLFEU Sodium 134 L (136-145) mEq/L Potassium 3.8 (3.5-5.1) mEq/L Chloride 107 (98-107) mEq/L Carbon Dioxide 22 L (23-29) mEq/L BUN 9 (8-23) mg/dL Creatinine 0.94 (0.60-1.20) mg/dL Est GFR ( Amer) > 60 (> 60) Est GFR (Non-Af Amer) 60 (> 60) BUN/Creatinine Ratio 10 (6-26) Glucose 102 (70-105) mg/dL Calculated Osmolality 277 L (280-300) Calcium 9.4 (8.6-10.3) mg/dL Troponin I (< 0.04) ng/mL 05/16/17 Range/Units 17:56 WBC (4.3-11.1) K/mcL RBC (3.82-4.97) M/mcL Hgb (11.5-15.4) g/dL Hct (35.3-44.9) % MCV (83.0-100.0) fL MCH (28.0-33.3) pg MCHC (31.6-35.5) g/dL RDW (11.5-14.5) % Plt Count (140-400) K/mcL MPV (9.4-12.4) fL Immature Gran % (0-4) % Seg Neutrophils % % Lymphocytes % % Monocytes % % Eosinophils % % Basophils % % Neutrophils # (1.6-8.9) K/mcL Lymphocytes # (0.6-4.6) K/mcL Monocytes # (0.0-1.3) K/mcL Eosinophils # (0.0-0.6) K/mcL Basophils # (0.0-0.2) K/mcL D-Dimer (0-500) ng/mLFEU Sodium (136-145) mEq/L Potassium (3.5-5.1) mEq/L Chloride (98-107) mEq/L Carbon Dioxide (23-29) mEq/L BUN (8-23) mg/dL Creatinine (0.60-1.20) mg/dL Est GFR ( Amer) (> 60) Est GFR (Non-Af Amer) (> 60) BUN/Creatinine Ratio (6-26) Glucose (70-105) mg/dL Calculated Osmolality (280-300) Calcium (8.6-10.3) mg/dL Troponin I < 0.03 (< 0.04) ng/mL - Radiology Data Radiology results reviewed: Yes I reviewed the patient's radiology results. Chest X-Ray 05/16/17 17:52 IMPRESSION: No significant change. No acute process. D/ 05/16/2017 18:08:17 Jake Kim MD / [facility] Interpreting Provider: Jake Kim MD - EKG Data EKG attestation: Yes I reviewed and interpreted this EKG. EKG shows normal: sinus rhythm Rate: normal (71 bpm OK 189 QRS [address] segment elevations, T-wave inversions in V2 V3. Seen on previous EKG in February) Heart Score - Score History: Moderately Suspicious EKG: Non Specific repolarisation Disturbance Age: 45-65 Risk Factors: 1-2 risk factors Troponin: Less than normal limit HEART Score Total: 4
--- NOTE | 2017-05-16 17:58 | Emergency Department Note ---
START Narrative - START START: I examined this patient and my medical decision-making was reviewed with the emergency medicine resident. I agree with the documented findings, disposition and treatment plan as described except to the extent set forth below. Patient seen with emergency medicine resident Dr. JOEL DREW, Please see a copy of his note for details of the H&P, ED evaluation, management and disposition. I have independently evaluated the patient and confirmed appropriate portions of the history and physical exam. Briefly: 66-year-old former smoker presents with chest pain and shortness of breath and some pleuritic component. EKG shows no acute ischemic changes when compared to prior. Troponin and d-dimer chest x-ray no screening labs are pending. Admission anticipated. Patient's heart score is 4+. Disposition pending
[2017-05-16] MEDS: Nitroglycerin 0.4 MG TAB.SUBL SL ONE ×2 (18:00→18:09)
[2017-05-16 18:06] LABS: Basophils # 0.1 K/mcL (0.0-0.2); Basophils % 0.8 %; Eosinophils # 0.1 K/mcL (0.0-0.6); Eosinophils % 2.2 %; Hematocrit 38.6 % (35.3-44.9); Hemoglobin 11.8 g/dL (11.5-15.4); Immature Granulocytes % 0.3 % (0-4); Lymphocytes # 1.7 K/mcL (0.6-4.6); Lymphocytes % 27.4 %; Mean Corpuscular HGB Conc 30.6 g/dL (31.6-35.5); Mean Corpuscular Hemoglobin 29.6 pg (28.0-33.3); Mean Corpuscular Volume 96.7 fL (83.0-100.0); Mean Platelet Volume 9.1 fL (9.4-12.4); Monocytes # 0.4 K/mcL (0.0-1.3); Platelet Count 243 K/mcL (140-400); Red Blood Count 3.99 M/mcL (3.82-4.97); Red Cell Distribution Width 14.1 % (11.5-14.5); Segmented Neutrophils % 63.3 %
[2017-05-16 18:21] LABS: BUN/Creatinine Ratio 10 (6-26); Blood Urea Nitrogen 9 mg/dL (8-23); Calcium 9.4 mg/dL (8.6-10.3); Carbon Dioxide 22 mEq/L (23-29); Chloride 107 mEq/L (98-107); Glucose 102 mg/dL (70-105); Osmolality,Calculated 277 (280-300); Potassium 3.8 mEq/L (3.5-5.1); Sodium 134 mEq/L (136-145); eGFR For African Americans > 60 (> 60); eGFR For Non-African Americans 60 (> 60)
[2017-05-16] MEDS: 0.9 % Sodium Chloride 1,000 ML IVC SCH ×2 (18:33→21:41)
[2017-05-16] MEDS ORDERED: Naloxone 0.4 MG/ML INJ IVP PRN (18:50)
[2017-05-16] MEDS ORDERED: Nitroglycerin 0.4 MG TAB.SUBL SL PRN (18:50)
--- NOTE | 2017-05-16 19:00 | Internal Med History&Physical ---
Date of Encounter: 05/16/17 Time of Encounter: 18:55 Assessment and Plan (1) Chest pain Current visit: No Status: Acute Admit the hospitalist. Place on telemetry. Trend cardiac enzymes. Nuclear stress test tomorrow. Risk factors include obesity, age, female, 2nd hand smoke exposure. Check lipid panel, A1c. When necessary nitroglycerin sublingual. Patient was given 324 mg of aspirin already. Pain improved after nitroglycerin in the ED. Resume home aspirin. Qualifiers: Chest pain type: intercostal pain Qualified Code(s): R07.82 - Intercostal pain (2) Seizure Current visit: No Status: Acute Resume home antiepileptics. (3) COPD (chronic obstructive pulmonary disease) Current visit: No Status: Chronic Stable not in exacerbation. Resume home meds. Qualifiers: COPD type: chronic bronchitis Chronic bronchitis type: simple Qualified Code(s): J41.0 - Simple chronic bronchitis (4) Depression Current visit: No Status: Chronic Resume on antidepressants Qualifiers: Depression Type: reactive depression Qualified Code(s): F32.9 - Major depressive disorder, single episode, unspecified (5) DVT prophylaxis Current visit: No Status: Acute Heparin subcutaneous Internal Medicine - H&P: HPI Chief complaint: Chest pain Admitted From: Home Plans for Post Hospital Care: Home History of present illness: Ms. Mccarthy is a 66 year old female with past medical history seizures, obesity, depression, iron deficiency anemia, GERD, former tobacco abuse, and COPD who presents with chest pain that started today. Pain was 6 out of 10 with radiation to the left neck. No diaphoresis. EKG was with no acute ST or T -wave changes. First set of troponins was negative. Patient had a left heart catheterization in February 2014 which was negative. Last Echo with an EF 55-60 % with no significant valvular dysfunction. No segmental wall motion abnormalities. Denies fever/chills/headache/blurry vision/nausea/vomiting/ abdominal pain/urinary symptoms/neurological symptoms. In the emergency department laboratory workup was unremarkable. The patient was hemodynamically stable. Past Med Surg Social Fam HX - Past Medical History Medical history: COPD, CVA, GERD, migraine, seizures Psychiatric history: anxiety, depression - Past Surgical History Surgical History: hysterectomy, knee replacement, other - Social History Smoking Status: Never smoker Smokeless Tobacco Status: No Alcohol use: none Drug use: none - Family History Mother Hx Family Cardiac Disorders: Yes (Reports mother of a heart attack at 80) Hx Family Respiratory Disorders: No Hx Family Cancer: Yes (breast cancer) Hx Family GI Disorders: No Hx Family Endocrine Disorder: No Hx Family Neuromuscular Disorders: No Hx Family Neurologic Disorders: No Hx Family HEENT Disorders: No Hx Family Autoimmune Disorders: No Internal Medicine - H&P: Meds Lamotrigine [Lamictal] 200 mg PO BID 04/12/15 [History] Cyclosporine [Restasis] 1 drop OP BID 10/04/15 [History] Topiramate [Topamax] 100 mg PO BID 10/04/15 [History] Topiramate [Topamax] 200 mg PO BID 03/06/16 [History] LORazepam [Ativan] 1 mg PO HS 07/05/16 [History] Citalopram Hydrobromide [Celexa] 40 mg PO DAILY 08/14/16 [History] Pantoprazole Sodium [Protonix] 40 mg PO DAILY 08/14/16 [History] Albuterol Sulfate [Ventolin Hfa] 2 puff IH Q4-6H PRN 05/16/17 [History] 3 Allergy/AdvReac Type Severity Reaction Status Date / Time dextromethorphan Allergy Severe Seizure Verified 03/09/17 17:57 doxylamine Allergy Severe Seizure Verified 03/09/17 17:57 hydrocortisone Allergy Severe Seizure Verified 03/09/17 17:57 [From Hydrocortone] Iodinated Contrast- Oral and Allergy Severe Hives Verified 03/09/17 17:57 IV Dye [Iodinated Contrast Media - IV Dye] Oxycodone Allergy Severe Seizure Verified 03/09/17 17:57 pseudoephedrine Allergy Severe Seizure Verified 03/09/17 17:57 hydrocodone [From Vicodin] Allergy See Verified 03/09/17 17:57 Comments ibuprofen Allergy Hives Verified 03/09/17 17:57 diphenhydramine AdvReac Nausea Verified 03/09/17 17:57 [From Benadryl] All Systems PM: A 10-system review of systems was performed and is negative for pertinent findings except as documented above in the HPI. Review of systems: All systems reviewed are negative except for as mentioned above - Constitutional Vitals: Temp Pulse Resp BP Pulse Ox 98.9 F 75 20 124/68 96 02/22/18 17:41 05/16/17 18:10 05/16/17 18:10 05/16/17 18:10 05/16/17 18:10 Exam: GEN: NAD HEENT: AT, NC, No cyanosis, oral mucosa is moist, No JVD Lymphatics: No lymphadenoapthy Eyes: Extrocular muscles intact, anicteric CVS:RRR. S1, S2, No m/r/g RESP: CTAB ABD: Soft, NT, ND, +BS EXT: No edema, No rashes, 2+ DP NEURO: Nonfocal, CN II-XII intact, No focal motor or sensory deficits Psych: Cooperative, Not anxious or depressed Internal Med - H&P Results - Labs CBC & Chem 7: 05/16/17 17:56 05/16/17 17:56 Labs: Short CBC 05/16/17 Range/Units 17:56 WBC 6.3 (4.3-11.1) K/mcL Hgb 11.8 (11.5-15.4) g/dL Hct 38.6 (35.3-44.9) % Plt Count 243 (140-400) K/mcL Neutrophils # 4.0 (1.6-8.9) K/mcL BMP 05/16/17 17:56 Sodium 134 L Potassium 3.8 Chloride 107 Carbon Dioxide 22 L BUN 9 Creatinine 0.94 Glucose 102 Calcium 9.4 Cardiac Enzymes 05/16/17 Range/Units 17:56 Troponin I < 0.03 (< 0.04) ng/mL - Impressions ITS Impressions Chest X-Ray 05/16/17 17:52 IMPRESSION: No significant change. No acute process. D/ / 05/16/2017 18:08:17 Jake Kim MD / [facility] Interpreting Provider: Jake Kim MD
[2017-05-16] MEDS: *HR* Heparin 5,000 UNIT/ML VIAL SQ SCH (21:40)
[2017-05-16] MEDS: Topiramate 100 MG TABLET PO SCH ×2 (22:06→22:07)
[2017-05-16] MEDS: lamoTRIgine 100 MG TABLET PO SCH (22:08)
[2017-05-17 01:25] LABS: Hematocrit 33.3 % (35.3-44.9); Hemoglobin 10.4 g/dL (11.5-15.4); Mean Corpuscular HGB Conc 31.2 g/dL (31.6-35.5); Mean Corpuscular Hemoglobin 30.5 pg (28.0-33.3); Mean Corpuscular Volume 97.7 fL (83.0-100.0); Mean Platelet Volume 9.4 fL (9.4-12.4); Platelet Count 202 K/mcL (140-400); Red Blood Count 3.41 M/mcL (3.82-4.97); Red Cell Distribution Width 14.4 % (11.5-14.5)
[2017-05-17 01:34] LABS: Hemoglobin A1C 5.1 %
[2017-05-17 01:43] LABS: BUN/Creatinine Ratio 13 (6-26); Blood Urea Nitrogen 10 mg/dL (8-23); Calcium 8.8 mg/dL (8.6-10.3); Carbon Dioxide 22 mEq/L (23-29); Chloride 111 mEq/L (98-107); Chol/HDL Ratio 3.3 (0-4.9); Cholesterol 175 mg/dL (< 200); Glucose 97 mg/dL (70-105); HDL Cholesterol 53 mg/dL (40-59); LDL Cholesterol,Calculated 99 mg/dL (0-99); Osmolality,Calculated 283 (280-300); Potassium 3.5 mEq/L (3.5-5.1); Sodium 137 mEq/L (136-145); Triglycerides 114 mg/dL (< 150); eGFR For African Americans > 60 (> 60); eGFR For Non-African Americans > 60 (> 60)
[2017-05-17] MEDS: *HR* Heparin 5,000 UNIT/ML VIAL SQ SCH ×3 (05:52→20:39)
[2017-05-17] MEDS ORDERED: Regadenoson 0.4 MG/5 ML SYRINGE IVP ONE (06:07)
[2017-05-17] MEDS: Acetaminophen 325 MG TABLET PO PRN (06:41)
[2017-05-17] MEDS ORDERED: Ketorolac 15 MG/ML VIAL IVP ONE (07:38)
[2017-05-17] MEDS: Cyclosporine [Restasis] OP SCH ×2 (07:42→20:38)
[2017-05-17] MEDS: lamoTRIgine 100 MG TABLET PO SCH ×2 (07:42→20:38)
[2017-05-17] MEDS: Topiramate 100 MG TABLET PO SCH ×4 (07:42→20:37)
[2017-05-17] MEDS ORDERED: Topiramate 100 MG TABLET PO SCH ×2 (09:00)
[2017-05-17] MEDS ORDERED: lamoTRIgine 100 MG TABLET PO SCH (09:00)
[2017-05-17] MEDS: 0.9 % Sodium Chloride 1,000 ML IVC SCH ×2 (09:46→20:31)
--- NOTE | 2017-05-17 12:56 | Electrocardiograph Report ---
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
--- NOTE | 2017-05-17 16:13 | Internal Med Progress Note ---
Date of Encounter: 05/17/17 Time of Encounter: 16:11 - Assessment and plan (1) Chest pain Current Visit: Yes Status: Acute Assessment and plan: Ms. Mccarthy is a 66 year old female with past medical history of seizures, obesity, depression, iron deficiency anemia, GERD, former tobacco abuse, and COPD who presented with chest pain 6 out of 10 with radiation to the left neck. No diaphoresis. EKG was with no acute ST or T-wave changes. Ttroponins was negative. Patient had a left heart catheterization in February 2014 which was negative. Last Echo with an EF 55-60% with no significant valvular dysfunction. No segmental wall motion abnormalities. Denies fever/ chills/headache/blurry vision/nausea/vomiting/abdominal pain/urinary symptoms/ neurological symptoms. In the emergency department laboratory workup was unremarkable. The patient was hemodynamically stable. Cardiac enzymes are negative Cardiac enzymes are negative Two-step stress test and process and will be completed tomorrow Continue cardiac cath technologist Nitroglycerin as needed for pain Continue aspirin Qualifiers: Chest pain type: intercostal pain Qualified Code(s): R07.82 - Intercostal pain (2) COPD (chronic obstructive pulmonary disease) Current Visit: Yes Status: Chronic Assessment and plan: Not exacerbated continue her medications Qualifiers: COPD type: chronic bronchitis Chronic bronchitis type: simple Qualified Code(s): J41.0 - Simple chronic bronchitis (3) Depression Current Visit: Yes Status: Chronic Assessment and plan: Continue home meds Qualifiers: Depression Type: reactive depression Qualified Code(s): F32.9 - Major depressive disorder, single episode, unspecified (4) DVT prophylaxis Current Visit: Yes Status: Acute Assessment and plan: heparin subcutaneous (5) Seizure Current Visit: No Status: Acute Assessment and plan: No seizure activity continue antiepileptic drugs - Subjective Interval history: Patient was having sharp reproducible left-sided chest pain this morning which was resolved with a dose of Toradol. She had step 1 of her step to stress test. She has been resting comfortably without complaints of fever, chills, sweats, nausea or vomiting, dizziness or headache. - Constitutional Vitals: Temp Pulse Resp BP Pulse Ox 98.8 F 71 16 115/68 98 05/17/17 16:02 05/17/17 16:02 05/17/17 16:02 05/17/17 16:02 05/17/17 16:02 General appearance: Present: cooperative, mild distress, A&O X 3, pleasant, answers questions appropriately - Head Head exam: Present: atraumatic, normocephalic - Eye Eye exam: Present: PERRL, conjuntiva pink, sclera anicteric Pupils: Present: PERRL - Neck Neck exam general surgery: Present: supple, trachea midline. Absent: lymphadenopathy - Respiratory Respiratory exam: Present: chest wall tenderness, CTAB. Absent: accessory muscle use, rales, rhonchi, wheezes - Cardiovascular Cardiovascular exam: Present: RRR, +S1, +S2. Absent: diastolic murmur, gallop, rubs, systolic murmur - GI/Abdominal GI/Abdominal exam: Present: normal bowel sounds, soft, no peritoneal signs. Absent: distended, tenderness - Extremities Exam Extremities exam: Present: warm, radial pulses palpable and symmetrical. Absent : calf tenderness, cyanotic, pedal edema - Neurological Exam Neurological exam: Present: alert, CN II-XII intact, normal gait, oriented X3, no focal deficits. Absent: pronater drift, facial droop, speech deficit - Skin Skin exam: Present: dry, intact, normal color, warm Internal Medicine: Result - Labs CBC & Chem 7: 05/17/17 00:38 05/17/17 00:38 Labs: Short CBC 05/17/17 Range/Units 00:38 WBC 5.4 (4.3-11.1) K/mcL Hgb 10.4 L (11.5-15.4) g/dL Hct 33.3 L (35.3-44.9) % Plt Count 202 (140-400) K/mcL [facility] 05/17/17 00:38 Sodium 137 Potassium 3.5 Chloride 111 H Carbon Dioxide 22 L BUN 10 Creatinine 0.76 Glucose 97 Calcium 8.8 Cardiac Enzymes 05/17/17 05/17/17 Range/Units 00:38 05:37 Troponin I < 0.03 < 0.03 (< 0.04) ng/mL - ABG Interpretation ABG results: PT/INR, D-dimer D-Dimer 407 ng/mLFEU (0-500) 05/16/17 17:56 Consult Discharge Plan - Plan Referrals: Maryann Saba, [employer] [Primary Care Provider] -
--- NOTE | 2017-05-17 17:44 | Electrocardiograph Report ---
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
[2017-05-17] MEDS ORDERED: *HR* LORazepam 1 MG TABLET PO SCH (21:00)
[2017-05-18] MEDS: Acetaminophen 325 MG TABLET PO PRN (05:53)
[2017-05-18] MEDS: *HR* Heparin 5,000 UNIT/ML VIAL SQ SCH ×3 (05:55→12:11)
[2017-05-18] MEDS: Topiramate 100 MG TABLET PO SCH ×2 (12:05→12:06)
[2017-05-18] MEDS: lamoTRIgine 100 MG TABLET PO SCH (12:05)
[2017-05-18 12:06] VITALS: BP 132/75
[2017-05-18] MEDS: Cyclosporine [Restasis] OP SCH (12:06)
[2017-05-18] MEDS: 0.9 % Sodium Chloride 1,000 ML IVC SCH (12:06)
--- NOTE | 2017-05-18 14:33 | Discharge Summary ---
- NOTES TO OUTPATIENT PROVIDER Notes to Outpatient Provider: Patient presented with chest pain and had a two- step stress test is negative. Chest x-ray was negative. She should follow up with her primary care physician first of the week. May be related to anxiety per patient report. Hemoglobin 10.4 with hematocrit of 33.3, troponins negative 3 sets Date of Encounter: 05/18/17 Time of Encounter: 14:31 - Discharge Diagnosis (1) Chest pain Priority: Primary Status: Acute Comments: Ms. Mccarthy is a 66 year old female with past medical history seizures, obesity, depression, iron deficiency anemia, GERD, former tobacco abuse, and COPD who presents with chest pain that started today. Pain was 6 out of 10 with radiation to the left neck. No diaphoresis. EKG was with no acute ST or T -wave changes. First set of troponins was negative. Patient had a left heart catheterization in February 2014 which was negative. Last Echo with an EF 55-60 % with no significant valvular dysfunction. No segmental wall motion abnormalities. Denies fever/chills/headache/blurry vision/nausea/vomiting/ abdominal pain/urinary symptoms/neurological symptoms. In the emergency department laboratory workup was unremarkable. The patient was hemodynamically stable. Stress test completed with impression a perfusion imaging was negative for ischemia or infarct. Apical perfusion defect consistent with artifact Pharmacological stress ECG is negative for ischemia at level of heart rate achieved. No appreciable change from baseline ECG Gaited EF equals 65% Patient may be discharged Qualifiers: Chest pain type: intercostal pain Qualified Code(s): R07.82 - Intercostal pain (2) COPD (chronic obstructive pulmonary disease) Priority: Primary Status: Chronic Comments: Non-exacerbated, continue home meds Qualifiers: COPD type: chronic bronchitis Chronic bronchitis type: simple Qualified Code(s): J41.0 - Simple chronic bronchitis (3) Depression Priority: Primary Status: Chronic Comments: Continue home antidepressants on discharge Qualifiers: Depression Type: reactive depression Qualified Code(s): F32.9 - Major depressive disorder, single episode, unspecified (4) Seizure Priority: Primary Status: Chronic Comments: Continue normal home meds on discharge Hospital course: Ms. Mccarthy is a 66 year old female admitted from the ER with chest pain. Past medical history for seizures, obesity, depression, iron deficiency deficiency anemia, GERD, former tobacco abuse and COPD. She had no diaphoresis or other associated symptoms. EKG was with no acute ST or T-wave changes. Troponins were negative 3 sets patient had a left heart catheter in February 2014 which was negative. Last echo with an EF of 55-60% with no significant valvular dysfunction. Patient's pain was reproducible to palpation over the sternal and left upper rib cage. Responded well to a dose of Toradol. Stress Test two-step was completed today with no ischemia or infarct. Patient be discharged home. Follow-up with PCP next week Discharge discussed with: patient, nurse - Time Spent with Patient Total time spent providing and/or coordinating discharge services: - Discharge Medications Home Medications: Lamotrigine [Lamictal] 200 mg PO BID 04/12/15 [History] Cyclosporine [Restasis] 1 drop OP BID 10/04/15 [History] Topiramate [Topamax] 100 mg PO BID 10/04/15 [History] Topiramate [Topamax] 200 mg PO BID 03/06/16 [History] LORazepam [Ativan] 1 mg PO HS 07/05/16 [History] Citalopram Hydrobromide [Celexa] 40 mg PO DAILY 08/14/16 [History] Pantoprazole Sodium [Protonix] 40 mg PO DAILY 08/14/16 [History] Albuterol Sulfate [Ventolin Hfa] 2 puff IH Q4-6H PRN 05/16/17 [History] Allergies/Adverse Reactions: 3 Allergy/AdvReac Type Severity Reaction Status Date / Time dextromethorphan Allergy Severe Seizure Verified 03/09/17 17:57 doxylamine Allergy Severe Seizure Verified 03/09/17 17:57 hydrocortisone Allergy Severe Seizure Verified 03/09/17 17:57 [From Hydrocortone] Iodinated Contrast- Oral and Allergy Severe Hives Verified 03/09/17 17:57 IV Dye [Iodinated Contrast Media - IV Dye] Oxycodone Allergy Severe Seizure Verified 03/09/17 17:57 pseudoephedrine Allergy Severe Seizure Verified 03/09/17 17:57 hydrocodone [From Vicodin] Allergy See Verified 03/09/17 17:57 Comments ibuprofen Allergy Hives Verified 03/09/17 17:57 diphenhydramine AdvReac Nausea Verified 03/09/17 17:57 [From Benadryl] Date of admission: 05/16/17 18:59 Primary care physician: Maryann Saba CNP Discharging clinician: Julianne Hale Anticipated date of discharge: 05/18/17 - Constitutional Vitals: Temp Pulse Resp BP Pulse Ox 97.9 F 77 18 132/75 96 05/18/17 12:01 05/18/17 12:01 05/18/17 12:01 05/18/17 12:01 05/18/17 12:01 General appearance: Present: cooperative, A&O X 3, pleasant, answers questions appropriately - Head Head exam: Present: atraumatic, normocephalic - Eye Eye exam: Present: PERRL, conjuntiva pink, sclera anicteric Pupils: Present: PERRL - Neck Neck exam general surgery: Present: supple, trachea midline. Absent: lymphadenopathy - Respiratory Respiratory exam: Present: CTAB. Absent: accessory muscle use, rales, rhonchi, wheezes - Cardiovascular Cardiovascular exam: Present: RRR, +S1, +S2. Absent: diastolic murmur, gallop, rubs, systolic murmur - GI/Abdominal GI/Abdominal exam: Present: normal bowel sounds, soft, no peritoneal signs. Absent: distended, tenderness - Extremities Exam Extremities exam: Present: warm, radial pulses palpable and symmetrical. Absent : calf tenderness, cyanotic, pedal edema - Neurological Exam Neurological exam: Present: CN II-XII intact, oriented X3, no focal deficits. Absent: pronater drift, facial droop, speech deficit - Skin Skin exam: Present: dry, intact, normal color, warm - Patient Status Disposition: Home, Self-Care Condition: Good Functional capacity at discharge: independent ambulation Overall status at discharge: patient is back to baseline - Discharge Instructions Follow Up With: Maryann Saba CNP [Primary Care Provider] - Additional Instructions: Follow-up with primary care physician next week. Return to the ER if any further chest pain. - Diet and Activity Activity: resume usual activities as tolerated Diet: advance to your usual diet, low fat, low cholesterol
== END 2017-05-18 16:27 | disposition home or self-care (01) ==
LOC: EMEROO 17:39 → 3BNU 17:39
PROVIDERS: ADMIT Internal Medicine; ATTEND Registered Nurse

== ENCOUNTER 2018-08-02 20:28 | Observation (INO) ==
[2018-08-02] MEDS ORDERED: Isovue-370 500 ML BOTTLE IVP ONE (21:06)
--- NOTE | 2018-08-02 21:10 | Emergency Department Note ---
Disposition Clinical Impression: TIA (transient ischemic attack) Anemia Qualifiers: Anemia type: unspecified type Qualified Code(s): D64.9 - Anemia, unspecified COPD (chronic obstructive pulmonary disease) Qualifiers: COPD type: unspecified COPD Qualified Code(s): J44.9 - Chronic obstructive pulmonary disease, unspecified Disposition: Admitted As Inpatient Condition: Fair Referrals: NONE,PCP [Primary Care Provider] - Time of Disposition: 22:26 Neuro HPI - General Stated Complaint: neuro Time Seen by Provider: 08/02/18 20:30 Source: patient, EMS Mode of arrival: EMS Limitations: no limitations Nursing Notes Reviewed: Yes Vital Signs Reviewed: Yes - History of Present Illness HPI Narrative: 67 yo female with past medical history of TIAs, cerebrovascular aneurysm with coiling, and seizures presents to the emergency department 45 minutes after developing left-sided weakness and sensory changes. Her last known well was at 7:45 PM today. The patient states that she noticed that her face and left arm was feeling numb and then she noticed her left arm and left leg "stiffened up" like she was unable to move them. Per the time she arrived in the emergency department she states that her stiffness was slowly resolving. She denies headache, changes in vision, chest pain, shortness of breath, abdominal pain, nausea and vomiting, diarrhea. - Related Data Home Medications: Home Medications Medication Instructions Recorded Confirmed Lamotrigine [Lamictal] 200 mg PO BID 04/12/15 08/02/18 Cyclosporine [Restasis] 1 drop OP BID 10/04/15 08/02/18 Topiramate [Topamax] 100 mg PO BID 10/04/15 08/02/18 Topiramate [Topamax] 200 mg PO BID 03/06/16 08/02/18 Citalopram Hydrobromide [Celexa] 40 mg PO DAILY 08/14/16 08/02/18 Pantoprazole Sodium [Protonix] 40 mg PO DAILY 08/14/16 08/02/18 ARIPiprazole [Abilify] 2 mg PO DAILY 08/02/18 08/02/18 Aspirin [Lo-Dose Aspirin EC] 81 mg PO DAILY 08/02/18 08/02/18 Benztropine [Cogentin] 0.5 mg PO BID 08/02/18 08/02/18 Furosemide [Lasix] 20 mg PO DAILY 08/02/18 08/02/18 Latanoprost [Xalatan] 1 drop OP HS 08/02/18 08/02/18 Primidone [Mysoline] 25 mg PO BID 08/02/18 08/02/18 Previous Rx's Medication Instructions Recorded Atorvastatin [Lipitor] 40 mg PO HS #30 tablet 04/15/18 Allergies/Adverse Reactions: Allergies Allergy/AdvReac Type Severity Reaction Status Date / Time diazepam [From Valium] Allergy See Verified 03/11/18 07:54 Comments doxycycline Allergy See Verified 03/11/18 07:54 Comments hydrocodone [From Vicodin] Allergy Hives Verified 03/11/18 07:54 ibuprofen Allergy Hives Verified 03/11/18 07:54 sulfamethoxazole Allergy See Verified 03/11/18 07:54 [From Bactrim] Comments trimethoprim [From Bactrim] Allergy See Verified 03/11/18 07:54 Comments dextromethorphan AdvReac Severe Seizure Verified 03/11/18 07:54 doxylamine AdvReac Severe Seizure Verified 03/11/18 07:54 hydrocortisone AdvReac Severe Seizure Verified 03/11/18 07:54 [From Hydrocortone] oxycodone [Oxycodone] AdvReac Severe Seizure Verified 03/11/18 07:54 pseudoephedrine AdvReac Severe Seizure Verified 03/11/18 07:54 acetaminophen [From NyQuil] AdvReac See Verified 03/11/18 07:54 Comments diphenhydramine AdvReac Nausea Verified 03/11/18 07:54 [From Benadryl] All systems ED: reviewed and negative except as stated. Review of Systems: As Per HPI Constitutional: Reports: weakness. Denies: fever, chills Eyes: Denies: vision change Cardiovascular: Denies: chest pain, palpitations, dyspnea on exertion Respiratory: Denies: cough, dyspnea, wheezes Gastrointestinal: Denies: abdominal pain, nausea, vomiting, diarrhea Musculoskeletal: Denies: back pain, neck pain Integumentary: Denies: rash Neurological: Reports: weakness, numbness. Denies: headache, paresthesias, confusion Endocrine: Denies: fatigue Past Medical History - Past Medical History Attestation: Yes The following information was validated with the patient. Source: patient Medical history: Reports: arthritis, asthma, COPD, GERD, seizures, TIA Surgical history: Reports: appendectomy, cholecystectomy, hysterectomy, knee replacement, other Psychiatric history: Reports: anxiety, depression ORTHOTIST history: Reports: no ORTHOTIST history, 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 - Social History Smoking Status: Never smoker Smokeless Tobacco Status: No Alcohol use: Reports: none Drug use: Reports: none Physical Exam - General Limitations: no limitations General appearance: alert, in no apparent distress - Head Head exam: atraumatic, normocephalic - Eye Eye exam: Present: normal appearance, PERRL, EOMI - ENT ENT exam: normal exam, normal oropharynx - Neck Neck exam: Present: normal inspection. Absent: tenderness, lymphadenopathy - Chest Chest inspection: Present: normal inspection. Absent: tenderness - Respiratory Respiratory exam: Present: normal lung sounds bilaterally. Absent: wheezes - Cardiovascular Cardiovascular exam: Present: regular rate, normal rhythm - Abdominal Exam Abdominal exam: Present: soft, Non-Tender. Absent: distention, guarding, rebound, rigidity - Extremities Exam Extremities exam: Present: normal inspection. Absent: tenderness, pedal edema - Neurological Exam Neurological exam: Present: alert, oriented X3, motor sensory deficit, other (SEE NIH SCALE). Absent: CN II-XII intact - Psychiatric Psychiatric exam: Present: normal affect, normal mood - Skin Skin exam: Present: warm, dry, intact Course Vital Signs Temperature 0 F L 08/02/18 20:29 Pulse Rate 0 08/02/18 20:29 Respiratory Rate 0 08/02/18 20:29 Blood Pressure 0/0 08/02/18 20:29 O2 Sat by Pulse Oximetry 0 08/02/18 20:29 Temperature 98.6 F 08/02/18 20:50 Pulse Rate 66 08/02/18 20:50 Respiratory Rate 16 08/02/18 20:50 Blood Pressure 122/80 08/02/18 20:50 O2 Sat by Pulse Oximetry 99 08/02/18 20:50 Oxygen Delivery Oxygen Delivery Room Air Neuro Symptoms/Deficit - MDM Narrative Medical decision making narrative: Patient presents from home 45 minutes after sudden onset of left-sided weakness and numbness. As she is within the window for a stroke, stroke alert was called at 203. Workup was initiated and [facility] called at 2100. The patient was having rapid improvement of symptoms by this point, and was able to move all extre mities without associated weakness or ataxia at this time. She does report some residual numbness which is also improving. Due to the rapid improvement of her symptoms and her history of TIAs, Dr. Pratt suggested no TPA therapy for this patient and to admit for continued neurological workup. 2144 - upper as returned at the patient's baseline. CTA of the head and neck were heart to evaluate due to wires from patient's aneurysm repair and associated artifact. Recommendation is for MRI. As the patient will receive an MRI in accordance with further stroke workup as an inpatient we will not delay admission at this point. Hospitalist has been paged. [phone] - Dr. Cormier has accepted the patient for admission. Aspirin will be given for TIA/CVA management. - Medical Records Medical records reviewed: Yes I reviewed the patient's medical records. - Lab Data Lab results reviewed: Yes I reviewed the patient's lab results. Result diagrams: 08/02/18 20:59 08/02/18 20:59 Lab Results 08/02/18 08/02/18 08/02/18 Range/Units 20:59 20:59 20:59 WBC 6.2 (4.3-11.1) K/mcL RBC 3.36 L (3.82-4.97) M/mcL Hgb 9.7 L (11.5-15.4) g/dL Hct 32.1 L (35.3-44.9) % MCV 95.5 (83.0-100.0) fL MCH 28.9 (28.0-33.3) pg MCHC 30.2 L (31.6-35.5) g/dL RDW 14.9 H (11.5-14.5) % Plt Count 256 (140-400) K/mcL MPV 9.7 (9.4-12.4) fL PT 10.2 (9.4-12.1) Seconds INR 0.9 APTT 29.2 (26.0-36.0) Seconds Sodium 135 L (136-145) mEq/L Potassium 3.5 (3.5-5.1) mEq/L Chloride 103 (98-107) mEq/L Carbon Dioxide 26 (23-29) mEq/L BUN 9 (8-23) mg/dL Creatinine 1.11 (0.60-1.20) mg/dL Est GFR ( Amer) 60 (> 60) Est GFR (Non-Af Amer) 49 L (> 60) BUN/Creatinine Ratio 8 (6-26) Glucose 107 H (70-105) mg/dL Calculated Osmolality 279 L (280-300) Calcium 8.6 (8.6-10.3) mg/dL Troponin I < 0.03 (< 0.04) ng/mL - Radiology Data Radiology results reviewed: Yes I reviewed the patient's radiology results. NIH Stroke Scale - Level of Consciousness LOC: Alert - LOC Questions LOC Questions: Answers both correctly - LOC Commands LOC Commands: Performs both correctly - Best Gaze Best Gaze: Normal - Visual Visual: No visual loss - Facial Palsy Facial Palsy: Normal - Motor Arms Motor Arm-Left: Some effort against gravity, limb drifts to bed Motor Arm-Right: No drift for 10 seconds - Motor Legs Motor Leg-Left: Some effort against gravity, limb drifts to bed Motor Leg-Right: No drift for 5 seconds - Limb Ataxia Limb Ataxia: Present in ONE limb - Sensory Sensory: Mild to moderate loss, "not as sharp" - Best Language Best Language: No aphasia - Dysarthria Dysarthria: Normal - Extinction and Inattention Extinction and Inattention: Normal - NIHSS Total Score NIHSS Total Score: 6 TPA Checklist - LKW: 3-4.5 hrs Add. Warnings/Precautions Patient/family understanding: The patient/family members have been counseled and understood the risk, benefit, and alternatives of treatment. Attestation Statement - Attestation Attestation: Resident Attestation: I examined this patient and my medical decision making was reviewed with the Resident Physician. I agree with the documented findings, disposition and treatment plan as described except to the extent set forth below. We independently had [id number] contact with the patient. Conjunction patient presenting to the emergency department for evaluation of left-sided symptoms that started approximately 45 minutes prior to arrival. P atient describes left-sided face arm and numbness with associated mild decrease in strength patient still has 5 out of 5 strength throughout the left and right arm. Just slightly diminished compared to the right. Patient does have a significant history of previous TIAs. She does have a previous aneurysm coil in place. Patient had stroke alert called. Patient went to CT where she had CT head as well as CTA head and neck performed. Patient was evaluated by wishing neurologist. By the time the patient returned from CAT scan symptoms had almost completely resolved. TPA was not recommended. Patient to undergo regular stroke workup with MRI and hospital admission. Patient can be admitted to [facility] for further workup. They did request CTA's. CTAs were limited in regards to overall quality secondary to previous brain coil. We did discuss transferring the patient to [facility] given the noted artifact on CTA as well as the patient had a return of symptoms that lasted for several minutes and then resolved. The patient does not want to be transferred to [facility] at this time. Patient does und erstand that we do not provide further interventions at this hospital but rather confirm diagnosis and risk stratify. Patient understands this at this time. Patient will be admitted for further stroke workup.
[2018-08-02 21:13] LABS: Hematocrit 32.1 % (35.3-44.9); Hemoglobin 9.7 g/dL (11.5-15.4); Mean Corpuscular HGB Conc 30.2 g/dL (31.6-35.5); Mean Corpuscular Hemoglobin 28.9 pg (28.0-33.3); Mean Corpuscular Volume 95.5 fL (83.0-100.0); Mean Platelet Volume 9.7 fL (9.4-12.4); Platelet Count 256 K/mcL (140-400); Red Blood Count 3.36 M/mcL (3.82-4.97); Red Cell Distribution Width 14.9 % (11.5-14.5)
[2018-08-02 21:27] LABS: INR 0.9; Prothrombin Time 10.2 Seconds (9.4-12.1)
[2018-08-02 21:30] LABS: Activated Partial Thrombo Time 29.2 Seconds (26.0-36.0)
[2018-08-02 21:35] LABS: BUN/Creatinine Ratio 8 (6-26); Blood Urea Nitrogen 9 mg/dL (8-23); Calcium 8.6 mg/dL (8.6-10.3); Carbon Dioxide 26 mEq/L (23-29); Chloride 103 mEq/L (98-107); Glucose 107 mg/dL (70-105); Osmolality,Calculated 279 (280-300); Potassium 3.5 mEq/L (3.5-5.1); Sodium 135 mEq/L (136-145); eGFR For Non-African Americans 49 (> 60)
[2018-08-02 21:36] LABS: Troponin I < 0.03 ng/mL (< 0.04)
[2018-08-02] MEDS ORDERED: 0.9 % Sodium Chloride 500 ML IVC ONE (21:48)
[2018-08-02] MEDS ORDERED: Aspirin 81 MG TAB.CHEW PO ONE (22:25)
[2018-08-02] MEDS ORDERED: *HR* LORazepam 2 MG/ML VIAL IVP PRN (23:12)
[2018-08-02] MEDS ORDERED: Naloxone 0.4 MG/ML INJ IVP PRN (23:12)
[2018-08-02] MEDS ORDERED: Ondansetron 4 MG/2 ML VIAL IVP PRN (23:12)
--- NOTE | 2018-08-02 23:38 | Internal Med History&Physical ---
Date of Encounter: 08/02/18 Time of Encounter: 22:45 Internal Medicine - H&P: HPI Chief complaint: left sided weakness Admitted From: Emergency Dept Plans for Post Hospital Care: Home History of present illness: Ms. Mccarthy is a 67 year old female [facility] of left-sided weakness, numbness, and paresthesias. Symptoms started this evening at 7:45 PM, and she presented to ER with an hour symptom onset. Tele-stroke was performed with [facility], and she was deemed not a candidate for TPA as she was already having improvement in symptoms. It was recommended she be admitted to [facility] for MRI and further stroke workup. Upon my assessment of the patient, she still has some mild residual weakness of her left arm and leg, but it is much improved from initial symptom onset. She has no paresthesias, but she has some mild residual numbness in her foot. She has had a prior stroke. She also has a cerebral aneurysm requiring coiling about 9 years ago. She has history of seizures, and her last seizure was several years ago. She denies any recent head injury, fevers, chills, headache, back pain, or neck pain. She follows with [facility] for her seizure disorder. She has been well-controlled on her current medication regimen. Past Med Surg Social Fam HX - Past Medical History Attestation: Yes The following information was validated with the patient. Source: patient, old records reviewed Medical history: arthritis, asthma, COPD, GERD, seizures, TIA Additional medical history: epilepsy Psychiatric history: anxiety, depression - Past Surgical History Surgical History: appendectomy, cholecystectomy, hysterectomy, knee replacement, other Additional surgical history: tonsils - skull surgery for deformity as a child -. coiling for brain aneurysm 2009 - Social History Smoking Status: Never smoker Smokeless Tobacco Status: No Alcohol use: none Drug use: none Current living situation: Home Activity Level: Independent ambulation Recent Out of Country Travel Within the Last 8 Weeks: No - Family History Mother Adopted: No Living Status: Hx Family Cardiac Disorders: Yes (htn) Hx Family Respiratory Disorders: No Hx Family Cancer: Yes (breast cancer) Hx Family GI Disorders: No Hx Family Endocrine Disorder: No Hx Family Neuromuscular Disorders: No Hx Family Neurologic Disorders: No Hx Family HEENT Disorders: No Hx Family Autoimmune Disorders: No Internal Medicine - H&P: Meds Lamotrigine [Lamictal] 200 mg PO BID 04/12/15 [History] Cyclosporine [Restasis] 1 drop OP BID 10/04/15 [History] Topiramate [Topamax] 100 mg PO BID 10/04/15 [History] Topiramate [Topamax] 200 mg PO BID 03/06/16 [History] Citalopram Hydrobromide [Celexa] 40 mg PO DAILY 08/14/16 [History] Pantoprazole Sodium [Protonix] 40 mg PO DAILY 08/14/16 [History] Atorvastatin [Lipitor] 40 mg PO HS #30 tablet 04/15/18 [Rx] ARIPiprazole [Abilify] 2 mg PO DAILY 08/02/18 [History] Aspirin [Lo-Dose Aspirin EC] 81 mg PO DAILY 08/02/18 [History] Benztropine [Cogentin] 0.5 mg PO BID 08/02/18 [History] Furosemide [Lasix] 20 mg PO DAILY 08/02/18 [History] Latanoprost [Xalatan] 1 drop OP HS 08/02/18 [History] Primidone [Mysoline] 25 mg PO BID 08/02/18 [History] Allergy/AdvReac Type Severity Reaction Status Date / Time diazepam [From Valium] Allergy See Verified 03/11/18 07:54 Comments doxycycline Allergy See Verified 03/11/18 07:54 Comments hydrocodone [From Vicodin] Allergy Hives Verified 03/11/18 07:54 ibuprofen Allergy Hives Verified 03/11/18 07:54 sulfamethoxazole Allergy See Verified 03/11/18 07:54 [From Bactrim] Comments trimethoprim [From Bactrim] Allergy See Verified 03/11/18 07:54 Comments dextromethorphan AdvReac Severe Seizure Verified 03/11/18 07:54 doxylamine AdvReac Severe Seizure Verified 03/11/18 07:54 hydrocortisone AdvReac Severe Seizure Verified 03/11/18 07:54 [From Hydrocortone] oxycodone [Oxycodone] AdvReac Severe Seizure Verified 03/11/18 07:54 pseudoephedrine AdvReac Severe Seizure Verified 03/11/18 07:54 acetaminophen [From NyQuil] AdvReac See Verified 03/11/18 07:54 Comments diphenhydramine AdvReac Nausea Verified 03/11/18 07:54 [From Benadryl] - Constitutional Constitutional: no chills, no fever(s), no night sweats - EENT Eyes: no blurry vision, no change in vision Ears: no ear pain, no tinnitus Nose, mouth and throat: no nasal congestion, no sinus pressure, no sore throat - Cardiovascular Cardiovascular ROS IM: no chest pain, no dyspnea, no dyspnea on exertion, no orthopnea, no syncope - Respiratory Respiratory: no cough, no chest congestion, no excessive phlegm production, no change in phlegm color, no pain with cough - Gastrointestinal Gastrointestinal: no abdominal pain, no diarrhea, no hematemesis, no he matochezia, no melena, no nausea, no vomiting - Genitourinary Genitourinary: no dysuria, no flank pain, no hematuria - Musculoskeletal Musculoskeletal ROS IM: no arthralgias, no back pain - Integumentary Integumentary IM: no rash, no jaundice - Neurological Neurological ROS: focal weakness, numbness, paresthesias, no confusion, no convulsions, no disequilibrium, no dizziness, no frequent falls, no headache(s) Additional comments: symptoms on left arm and leg -- much improved since onset but still persist - Psychiatric Psychiatric: no anxiety, no depression - Endocrine Endocrine IM: no cold intolerance, no heat intolerance, no polydipsia, no polyphagia, no polyuria - Allergic/Immunologic Allergic/Immunologic: no GI upset with certain foods - Constitutional Vitals: Temp Pulse Resp BP Pulse Ox 98.6 F 67 16 123/73 99 08/02/18 20:50 08/02/18 22:48 08/02/18 22:48 08/02/18 22:48 08/02/18 22:48 General appearance: Present: cooperative, A&O X 3, pleasant, no acute distress, answers questions appropriately Exam: see below - Head Head exam: Present: atraumatic, normal inspection - Eye Eye exam: Present: EOMI, PERRL. Absent: scleral icterus Pupils: Present: normal accommodation - ENT ENT exam: Present: mucous membranes dry, normal exam, normal oropharynx - Neck Neck exam general surgery: Present: full ROM, supple, trachea midline. Absent: tenderness, nuchal rigidity, thyromegaly - Respiratory Respiratory exam: Present: CTAB. Absent: chest wall tenderness, rales, rhonchi, wheezes - Cardiovascular Cardiovascular exam: Present: RRR, +S1, +S2. Absent: diastolic murmur, JVD, systolic murmur - GI/Abdominal GI/Abdominal exam: Present: normal bowel sounds, soft. Absent: hepatomegaly, mass, splenomegaly, tenderness - Extremities Exam Extremities exam: Present: full ROM, normal capillary refill, warm, radial pulses palpable and symmetrical. Absent: calf tenderness, pedal edema, tenderness - Back Exam Back exam: Present: normal inspection. Absent: CVA tenderness (L), CVA tenderness (R) - Neurological Exam Neurological exam: Present: alert, CN II-XII intact, oriented X3. Absent: strengths equal and symetr throughout (left arm/hand weakness; LLE weakness; decreased sensation to LUE and LLE), facial droop, speech deficit - Psychiatric Psychiatric exam: Present: normal affect, normal mood - Skin Skin exam: Present: dry, intact, warm Internal Med - H&P Results - Labs CBC & Chem 7: 08/02/18 20:59 08/02/18 20:59 Labs: Short CBC 08/02/18 Range/Units 20:59 WBC 6.2 (4.3-11.1) K/mcL Hgb 9.7 L (11.5-15.4) g/dL Hct 32.1 L (35.3-44.9) % Plt Count 256 (140-400) K/mcL BMP 08/02/18 20:59 Sodium 135 L Potassium 3.5 Chloride 103 Carbon Dioxide 26 BUN 9 Creatinine 1.11 Glucose 107 H Calcium 8.6 Cardiac Enzymes 08/02/18 Range/Units 20:59 Troponin I < 0.03 (< 0.04) ng/mL - Impressions ITS Impressions Head CTA 08/02/18 00:00 IMPRESSION: 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 Extensive streak artifacts limit evaluation of bilateral intracranial ICAs, right middle cerebral artery, and parts of the anterior cerebral arteries. Within this limitation, there is no convincing evidence of high-grade stenosis or focal occlusion involving the intracranial vasculature. Left A1 segment appears absent, and this may be congenital finding. Bulbous appearance of the anterior communicating artery is likely secondary to confluence of vessels to aneurysm. This is not well seen due to streak artifacts. Correlation with previous available imaging may be helpful. No high-grade stenosis or focal occlusion involving the cervical vasculature. No evidence of acute dissection. Previous postsurgical changes of the posterior parietal calvarium in the region of the superior sagittal sinus. The postsurgical changes appear unchanged on a noncontrast portion of the examination. No previous CT examinations available for comparison. RECOMMENDATIONS: Given limitation of this examination, follow-up MRI may be obtained if there is persistent concern for acute infarct (if coil is MRI compatible). 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 Extensive streak artifacts limit evaluation of bilateral intracranial ICAs, right middle cerebral artery, and parts of the anterior cerebral arteries. Within this limitation, there is no convincing evidence of high-grade stenosis or focal occlusion involving the intracranial vasculature. Left A1 segment appears absent, and this may be congenital finding. Bulbous appearance of the anterior communicating artery is likely secondary to confluence of vessels to aneurysm. This is not well seen due to streak artifacts. Correlation with previous available imaging may be helpful. No high-grade stenosis or focal occlusion involving the cervical vasculature. No evidence of acute dissection. Previous postsurgical changes of the posterior parietal calvarium in the region of the superior sagittal sinus. The postsurgical changes appear unchanged on a noncontrast portion of the examination. No previous CT examinations available for comparison. RECOMMENDATIONS: Given limitation of this examination, follow-up MRI may be obtained if there is persistent concern for acute infarct (if coil is MRI compatible). D/ / 08/02/2018 21:43:41 Olu Finney MD / lea Interpreting Provider: Olu Finney MD Head CT 08/02/18 20:30 IMPRESSION: No acute intracranial abnormality. D/ / 08/02/2018 21:09:53 Olu Finney MD / lea Interpreting Provider: Olu Finney MD - Diagnostic Studies CT scan - head Status: image reviewed by me (negative) - Assessment and Plan (1) TIA (transient ischemic attack) Current Visit: Yes Status: Acute Assessment and plan: 1. Will proceed with stroke protocol orders. 2. Continue ASA and Lipitor. 3. Will order MRI brain, ECHO, Carotid Dopplers. 4. Neurochecks and monitoring per stroke protocol. 5. Will order EKG as one was not done in ER. 6. Monitor on telemetry. (2) Anemia Current Visit: Yes Status: Chronic Assessment and plan: 1. Irons studies ordered. 2. Fecal Hemoccult ordered. 3. Monitor H/H. 4. Patient denies any history of blood loss. Qualifiers: Anemia type: unspecified type Qualified Code(s): D64.9 - Anemia, unspecified (3) Brain aneurysm Current Visit: Yes Status: Chronic Assessment and plan: 1. S/P coiling in 2009. 2. Patient follows with [facility]. (4) DVT prophylaxis Current Visit: Yes Status: Acute Assessment and plan: 1. Heparin SQ.
[2018-08-03] MEDS: lamoTRIgine 100 MG TABLET PO SCH ×3 (00:02→20:29)
[2018-08-03 03:58] LABS: Basophils # 0.1 K/mcL (0.0-0.2); Basophils % 0.8 %; Eosinophils # 0.3 K/mcL (0.0-0.6); Eosinophils % 4.3 %; Hematocrit 30.9 % (35.3-44.9); Hemoglobin 9.3 g/dL (11.5-15.4); Immature Granulocytes % 0.2 % (0-4); Lymphocytes # 1.9 K/mcL (0.6-4.6); Lymphocytes % 29.7 %; Mean Corpuscular HGB Conc 30.1 g/dL (31.6-35.5); Mean Corpuscular Hemoglobin 28.5 pg (28.0-33.3); Mean Corpuscular Volume 94.8 fL (83.0-100.0); Mean Platelet Volume 9.7 fL (9.4-12.4); Monocytes # 0.5 K/mcL (0.0-1.3); Monocytes % 7.9 %; Neutrophils # 3.6 K/mcL (1.6-8.9); Platelet Count 235 K/mcL (140-400); Red Blood Count 3.26 M/mcL (3.82-4.97); Segmented Neutrophils % 57.1 %
[2018-08-03 04:08] LABS: Prothrombin Time 10.8 Seconds (9.4-12.1)
[2018-08-03 04:10] LABS: Activated Partial Thrombo Time 30.2 Seconds (26.0-36.0)
[2018-08-03 04:19] LABS: % Iron Saturation 9 % (15-50); Alanine Aminotransferase 4 Units/L (7-52); Albumin 3.4 g/dL (3.5-5.7); Albumin/Globulin Ratio 1.5 (1.1-2.2); Alkaline Phosphatase 115 Units/L (34-104); Aspartate Amino Transferase 9 Units/L (13-39); BUN/Creatinine Ratio 9 (6-26); Bilirubin,Total 0.3 mg/dL (0.3-1.0); Blood Urea Nitrogen 9 mg/dL (8-23); Calcium 8.3 mg/dL (8.6-10.3); Carbon Dioxide 24 mEq/L (23-29); Chloride 108 mEq/L (98-107); Globulin 2.2 g/dL (2.4-3.5); Glucose 96 mg/dL (70-105); Iron 35 mcg/dL (50-170); Osmolality,Calculated 281 (280-300); Potassium 3.8 mEq/L (3.5-5.1); Sodium 136 mEq/L (136-145); Total Protein 5.6 g/dL (6.4-8.9); Transferrin 285 mg/dL (203-362); eGFR For Non-African Americans 57 (> 60)
[2018-08-03] MEDS: *HR* Heparin 5,000 UNIT/ML VIAL SQ SCH ×2 (05:18→17:08)
[2018-08-03] MEDS: ARIPiprazole 2 MG TABLET PO SCH (07:34)
[2018-08-03] MEDS: Primidone 50 MG TABLET PO SCH ×2 (07:35→20:30)
[2018-08-03] MEDS: Topiramate 100 MG TABLET PO SCH ×4 (07:35→20:30)
[2018-08-03] MEDS: Aspirin Enteric Coated 81 MG Tablet PO SCH (07:35)
[2018-08-03] MEDS: (Cyclosporine [Restasis] 1 DROP) OP SCH ×2 (07:36→20:30)
[2018-08-03 08:54] LABS: Estimated Average Glucose 123 mg/dl; Hemoglobin A1C 5.9 %
--- NOTE | 2018-08-03 12:20 | Neurology - Consult Note ---
Date of Encounter: 08/03/18 Time of Encounter: 12:10 Assessment and Plan (1) Acute CVA (cerebrovascular accident) Current Visit: No Status: Acute Patient with multiple neurological conditions, including history of TIA, cerebral aneurysm s/p coiling, tremors of nervous system, who developed paresthesia involving left arm and face and feet and now with left sided hemiparesis, still having the slight weakness to the left arm and leg but no facial asymmetry. Has rather complicated neurological history and would agree to get stroke work up including MRI of brain, carotid artery duplex and echocardiography and for now would like to keep her on aspirin 81mg daily and continue statin therapy. PT evaluation. This may concerns for lacunar infarct, but this may turned out to be another episode of TIA. 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 Will keep her on current antiepileptic therapy without any change. She is to follow up with her primary neurologist Dr. Delgadillo at [facility] in August/2018 as she stated. 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 Mccarthy is a 67 year old female with past medical history significant for TIA, seizure disorder, hypertension, chronic kidney disease, tremors of nervous system, COPD, history of conversion disorder with abnormal movements who developed acute onset of left-sided facial and arm numbness, body stiffness and weakness. Patient states that she was at her friend's place celebrating an event of life and suddenly she developed lightheadedness and then she walked the back to her home place and she still felt lightheaded and she laid down and suddenly developed numbness involving her left hand on her left face. Also she found the fingers of her left hand and left muscle spasm and that her whole body was stiff. At that time, she decided to call the squad. The body stiffness resolved by the time she arrived in the emergency room here at [facility]. However, the patient was still weak at the time. Patient was decided not to be a TPA thrombolytic therapy due to rapid improvement of her neurological status. Patient was admitted for further workup for stroke. Patient takes aspirin 81 mg at home for previous history of TIAs. Patient used to follow-up neurology at [facility] every 6 months for her seizure disorder. She states that she had previous history of TIA and almost had a stroke. She also has a seizure disorder that has been well-controlled with a combination of lamotrigine and topiramate. Patient has been taking Abilify for her depression and she also takes been taking benztropine likely prescribed to counteract side effects from taking Abilify. Patient has had intermittent tremors as a chronic condition and she has seen Dr. Pravin Bales during 2016, however, no pharmacological treatment was recommended. At the time of this interview, patient no longer having numbness to her left hand and face. However, she states that she is still weak. She tells me that she had 3 episodes of tremors early this morning. She is able to walk to the bathroom without any difficulties. Past Med Surg Social Fam HX - Past Medical History Medical history: arthritis, asthma, COPD, GERD, seizures, TIA Additional medical history: epilepsy Psychiatric history: anxiety, depression - Past Surgical History Surgical History: appendectomy, cholecystectomy, hysterectomy, knee replacement, other Additional surgical history: tonsils - skull surgery for deformity as a child -. coiling for brain aneurysm 2009 - Social History Smoking Status: Never smoker Smokeless Tobacco Status: No Alcohol use: none Drug use: none - Family History Mother Adopted: No Living Status: Hx Family Cardiac Disorders: Yes (htn) Hx Family Respiratory Disorders: No Hx Family Cancer: Yes (breast cancer) Hx Family GI Disorders: No Hx Family Endocrine Disorder: No Hx Family Neuromuscular Disorders: No Hx Family Neurologic Disorders: No Hx Family HEENT Disorders: No Hx Family Autoimmune Disorders: No Medications and Allergies Lamotrigine [Lamictal] 200 mg PO BID 04/12/15 [History] Cyclosporine [Restasis] 1 drop OP BID 10/04/15 [History] Topiramate [Topamax] 100 mg PO BID 10/04/15 [History] Topiramate [Topamax] 200 mg PO BID 03/06/16 [History] Citalopram Hydrobromide [Celexa] 40 mg PO DAILY 08/14/16 [History] Pantoprazole Sodium [Protonix] 40 mg PO DAILY 08/14/16 [History] Atorvastatin [Lipitor] 40 mg PO HS #30 tablet 04/15/18 [Rx] ARIPiprazole [Abilify] 2 mg PO DAILY 08/02/18 [History] Aspirin [Lo-Dose Aspirin EC] 81 mg PO DAILY 08/02/18 [History] Benztropine [Cogentin] 0.5 mg PO BID 08/02/18 [History] Furosemide [Lasix] 20 mg PO DAILY 08/02/18 [History] Latanoprost [Xalatan] 1 drop OP HS 08/02/18 [History] Primidone [Mysoline] 25 mg PO BID 08/02/18 [History] Allergy/AdvReac Type Severity Reaction Status Date / Time diazepam [From Valium] Allergy See Verified 08/03/18 00:20 Comments doxycycline Allergy See Verified 08/03/18 00:20 Comments hydrocodone [From Vicodin] Allergy Hives Verified 08/03/18 00:20 ibuprofen Allergy Hives Verified 08/03/18 00:20 sulfamethoxazole Allergy See Verified 08/03/18 00:20 [From Bactrim] Comments trimethoprim [From Bactrim] Allergy See Verified 08/03/18 00:20 Comments dextromethorphan AdvReac Severe Seizure Verified 08/03/18 00:20 doxylamine AdvReac Severe Seizure Verified 08/03/18 00:20 hydrocortisone AdvReac Severe Seizure Verified 08/03/18 00:20 [From Hydrocortone] oxycodone [Oxycodone] AdvReac Severe Seizure Verified 08/03/18 00:20 pseudoephedrine AdvReac Severe Seizure Verified 08/03/18 00:20 acetaminophen [From NyQuil] AdvReac See Verified 08/03/18 00:20 Comments diphenhydramine AdvReac Nausea Verified 08/03/18 00:20 [From Benadryl] All Systems: The remainder of the systems were reviewed and are negative - Constitutional Constitutional ROS IM: chills (no), fever(s) (no), headache(s) (no) - Nose, Mouth, Throat Nose, mouth and throat: disequilibrium (no), dizziness (no), facial pain (no), hoarseness (no) - Cardiovascular Cardiovascular ROS IM: chest pain (no), chest pain at rest (no) - Respiratory Respiratory IM: cough (no), dyspnea (no), hemoptysis (no) - Gastrointestinal Gastrointestinal: abdominal pain (no), dysphagia (no) - Genitourinary Genitourinary ROS: difficulty urinating (no), difficulty voiding (no) - Musculoskeletal Musculoskeletal ROS IM: muscle weakness (yes) - Neurological Neurological ROS: abnormal gait (no), focal weakness (ys), numbness (yes) - Psychiatric Psychiatric general PM: abnormal sleep pattern (no), anhedonia (no), anxiety (no), auditory hallucinations (no) - Endocrine Endocrine IM: change in body appearance (no), fatigue (yes) - Hematologic/Lymphatic Hematologic/Lymphatic pediatric: easy bleeding (no), easy bruising (no) Physical Examination - Vital Signs Vital Signs: Initial Vital Signs Temp Pulse Resp BP Pulse Ox 0 F L 0 0 0/0 0 08/02/18 20:29 08/02/18 20:29 08/02/18 20:29 08/02/18 20:29 08/02/18 20:29 - Constitutional General appearance: comfortable - Neurologic Detailed motor examination: full strength in all major muscle groups Motor examination - right side: 5/5: deltoids, biceps, triceps, wrist flexion, wrist extension, clinical dietetic technician, hip flexors, tibialis Anterior, quadriceps, toe extension (EHL), plantarflexion Motor examination - left side: 4/5: deltoids, biceps, triceps, wrist flexion, wrist extension, hip flexors, clinical dietetic technician, quadriceps, tibialis Anterior, toe extension (EHL), plantarflexion Detailed sensory examination: intact Posture: other (None) Reflex and gait examination: intact Reflexes: Biceps: 2+, Triceps: 2+, Brachioradialis: 2+, Patella: 2+, Achilles: 2+ Mental Status Examination: awake, alert, oriented to person, oriented to place, oriented to time, follows commands appropriately, answers questions appropriately, no agnosia, no aphasia, no aproxia Cranial nerve examination: PERRL, EOMI, visual oneill intact, corneal reflexes brisk symmetrically, sensory to face intact, mastication intact, no facial asymmetry is present, no dysarthria, hearing is intact symmetrically, soft palate elevates bilaterally upon phonation, gag reflex intact, flexes SCM and trapezius muscles symmetrically with full power, tongue protrudes midline, no atrophy or facial fasiculations present Cerebellar examination: no dysmetria, performs finger to nose and heel to weinstein symmetrically without ataxia, no gait ataxia, no truncal ataxia, no difficulty with rapid alternating movements Results - Laboratory Findings CBC and BMP: 08/03/18 03:30 08/03/18 03:30 Abnormal lab findings: Abnormal lab results RBC 3.26 M/mcL (3.82-4.97) L 08/03/18 03:30 Hgb 9.3 g/dL (11.5-15.4) L 08/03/18 03:30 Hct 30.9 % (35.3-44.9) L 08/03/18 03:30 MCHC 30.1 g/dL (31.6-35.5) L 08/03/18 03:30 RDW 15.0 % (11.5-14.5) H 08/03/18 03:30 Sodium 135 mEq/L (136-145) L 08/02/18 20:59 Chloride 108 mEq/L (98-107) H 08/03/18 03:30 Est GFR (Non-Af Amer) 57 (> 60) L 08/03/18 03:30 Glucose 107 mg/dL (70-105) H 08/02/18 20:59 POC Glucose 103 mg/dL (70-99) H 08/02/18 20:31 5.9 % (-5.6) H 08/03/18 03:30 279 (280-300) L 08/02/18 20:59 Calcium 8.3 mg/dL (8.6-10.3) L 08/03/18 03:30 Iron 35 mcg/dL (50-170) L 08/03/18 03:30 % Saturation 9 % (15-50) L 08/03/18 03:30 AST 9 Units/L (13-39) L 08/03/18 03:30 ALT 4 Units/L (7-52) L 08/03/18 03:30 115 Units/L (34-104) H 08/03/18 03:30 5.6 g/dL (6.4-8.9) L 08/03/18 03:30 3.4 g/dL (3.5-5.7) L 08/03/18 03:30 2.2 g/dL (2.4-3.5) L 08/03/18 03:30 Consult Discharge Plan - Plan Referrals: Maryann Saba, FLAVIO [Partnered Physician] -
--- NOTE | 2018-08-03 16:50 | Internal Med Progress Note ---
Hospitalist Progress Note - Encounter Date of Encounter: 08/03/18 Time of Encounter: 09:00 - Subjective Interval History: Patient still has left-sided weakness. Said improved since yesterday. Has no slurred speech or facial drop. - Exam Vitals: Temp Pulse Resp BP Pulse Ox 98.1 F 63 16 110/76 98 08/03/18 14:47 08/03/18 14:47 08/03/18 14:47 08/03/18 14:47 08/03/18 14:47 Exam: Pt is AAO x 3, in NAD HEENT: NC/AT, PERRL Neck: Supple, no JVD, no LAD Lungs: CTA b/l Heart: S1S2, RRR Abd: Soft, nontender, BS present Ext: ROM wnl, no pedal edema Neuro: Motor 4/5 on left UE/LE - Assessment and Plan (1) Anemia Current Visit: Yes Status: Chronic Assessment and Plan: - Irons studies shows a mild iron deficiency - H&H is stable, no signs of active bleeding at this point. - MCV 95, will also check vitamin B12 and folic acid. Comments: Postop anemia. We will recheck her count. The amount of bruising in the right medial thigh is not unusual. (2) Brain aneurysm Current Visit: Yes Status: Chronic Assessment and Plan: - S/P coiling in 2009. - Patient follows with [facility]. (3) DVT prophylaxis Current Visit: Yes Status: Acute Assessment and Plan: - Heparin SQ. (4) TIA (transient ischemic attack) Current Visit: Yes Status: Acute Assessment and Plan: Patient has left-sided weakness. Symptoms improved but not completely resolved. CVA versus TIA - Continue cardiac monitoring to rule out occult A. fib - Echo has been done, unremarkable - Bilateral carotid duplex shows no stenosis. - MRI pending - Continue aspirin and atorvastatin - Continue PTOT - Continue NIHSS protocol - Neurology consult appreciated. (5) Acute CVA (cerebrovascular accident) Current Visit: No Status: Acute Assessment and Plan: As above DVT Prophylaxis: Heparin SC - Time Spent with Patient Total time spent is greater than 50% in coordination of care (as documented) at patient's floor/unit and/or counseling patient: 30 minutes 25 - 35 minutes Plan of Care Discussed with: patient Internal Medicine: Result - Labs CBC & Chem 7: 08/03/18 03:30 08/03/18 03:30 Labs: Short CBC 08/02/18 08/03/18 Range/Units 20:59 03:30 WBC 6.2 6.3 (4.3-11.1) K/mcL Hgb 9.7 L 9.3 L (11.5-15.4) g/dL Hct 32.1 L 30.9 L (35.3-44.9) % Plt Count 256 235 (140-400) K/mcL Neutrophils # 3.6 (1.6-8.9) K/mcL BMP 08/02/18 08/03/18 20:59 03:30 Sodium 135 L 136 Potassium 3.5 3.8 Chloride 103 108 H Carbon Dioxide 26 24 BUN 9 9 Creatinine 1.11 0.98 Glucose 107 H 96 Calcium 8.6 8.3 L Cardiac Enzymes 08/02/18 Range/Units 20:59 Troponin I < 0.03 (< 0.04) ng/mL Liver Function 08/03/18 Range/Units 03:30 Total Bilirubin 0.3 (0.3-1.0) mg/dL AST 9 L (13-39) Units/L ALT 4 L (7-52) Units/L Alkaline Phosphatase 115 H (34-104) Units/L Albumin 3.4 L (3.5-5.7) g/dL - ABG Interpretation ABG results: PT/INR, D-dimer PT 10.8 Seconds (9.4-12.1) 08/03/18 03:30 - Impressions Impressions Head CTA 08/02/18 00:00 IMPRESSION: 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 Extensive streak artifacts limit evaluation of bilateral intracranial ICAs, right middle cerebral artery, and parts of the anterior cerebral arteries. Within this limitation, there is no convincing evidence of high-grade stenosis or focal occlusion involving the intracranial vasculature. Left A1 segment appears absent, and this may be congenital finding. Bulbous appearance of the anterior communicating artery is likely secondary to confluence of vessels to aneurysm. This is not well seen due to streak artifacts. Correlation with previous available imaging may be helpful. No high-grade stenosis or focal occlusion involving the cervical vasculature. No evidence of acute dissection. Previous postsurgical changes of the posterior parietal calvarium in the region of the superior sagittal sinus. The postsurgical changes appear unchanged on a noncontrast portion of the examination. No previous CT examinations available for comparison. RECOMMENDATIONS: Given limitation of this examination, follow-up MRI may be obtained if there is persistent concern for acute infarct (if coil is MRI compatible). 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 Extensive streak artifacts limit evaluation of bilateral intracranial ICAs, right middle cerebral artery, and parts of the anterior cerebral arteries. Within this limitation, there is no convincing evidence of high-grade stenosis or focal occlusion involving the intracranial vasculature. Left A1 segment appears absent, and this may be congenital finding. Bulbous appearance of the anterior communicating artery is likely secondary to confluence of vessels to aneurysm. This is not well seen due to streak artifacts. Correlation with previous available imaging may be helpful. No high-grade stenosis or focal occlusion involving the cervical vasculature. No evidence of acute dissection. Previous postsurgical changes of the posterior parietal calvarium in the region of the superior sagittal sinus. The postsurgical changes appear unchanged on a noncontrast portion of the examination. No previous CT examinations available for comparison. RECOMMENDATIONS: Given limitation of this examination, follow-up MRI may be obtained if there is persistent concern for acute infarct (if coil is MRI compatible). D/ / 08/02/2018 21:43:41 Olu Finney MD / lea Interpreting Provider: Olu Finney MD Head CT 08/02/18 20:30 IMPRESSION: No acute intracranial abnormality. Findings were discussed with Dr. Cortez at 9:04pm on 08/02/2018 D/ / 08/02/2018 21:09:53 Olu Finney MD / lea Interpreting Provider: Olu Finney MD Echocardiogram 08/03/18 23:21 Impressions: LVEF 60%. Normal LV chamber size, wall thickness and function. Moderate left ventricular diastolic dysfunction. Normal right ventricular structure and function. Suboptimal image quality, but no obvious evidence of a PFO with agitated saline contrast. No evidence of pulmonary hypertension. No significant valvular dysfunction. Left Ventricular Wall Motion: Rest Echo Findings All wall segments showed normal motion. Findings: Study Quality * Technically adequate exam. ECG Findings * Normal sinus rhythm. Left Ventricle * LVEF 60%. * Normal LV chamber size, wall thickness and function. * Moderate left ventricular diastolic dysfunction. Right Ventricle * Normal right ventricular structure and function. Left Atrium * Mildly dilated left atrium. Right Atrium * Mildly dilated right atrium. Interatrial Septum * Suboptimal image quality, but no obvious evidence of a PFO with agitated saline contrast. Aortic Valve * Trileaflet aortic valve with normal function. * No aortic regurgitation. * No aortic stenosis. Mitral Valve * Normal mitral valve structure and function. * No mitral regurgitation. * No mitral stenosis. Tricuspid Valve * Normal tricuspid valve structure and function. * Trace tricuspid regurgitation. * No evidence of pulmonary hypertension. Pulmonic Valve * Pulmonic valve is not well visualized. Aorta * Normally sized aortic root. Pericardium * The pericardium appears normal. IVC * Normal IVC dimensions and inspiratory collapse. Pulmonary Artery * Pulmonary artery not well visualized. Consult Discharge Plan - Plan Referrals: Maryann Saba, CLASS C DRIVER [Partnered Physician] - (APPOINTMENT HAS BEEN REQUESTED.) (1) Anemia Qualifiers: Anemia type: iron deficiency Iron deficiency anemia type: unspecified iron deficiency Qualified Code(s): D50.9 - Iron deficiency anemia, unspecified
[2018-08-03] MEDS ORDERED: Latanoprost 2.5 ML BOTTLE BOTH EYES SCH (21:00)
[2018-08-04 02:49] LABS: Basophils % 0.8 %; Eosinophils # 0.2 K/mcL (0.0-0.6); Eosinophils % 4.6 %; Hematocrit 31.9 % (35.3-44.9); Hemoglobin 9.8 g/dL (11.5-15.4); Immature Granulocytes % 0.2 % (0-4); Lymphocytes # 1.5 K/mcL (0.6-4.6); Lymphocytes % 30.5 %; Mean Corpuscular HGB Conc 30.7 g/dL (31.6-35.5); Mean Corpuscular Hemoglobin 29.3 pg (28.0-33.3); Mean Corpuscular Volume 95.5 fL (83.0-100.0); Mean Platelet Volume 9.9 fL (9.4-12.4); Monocytes # 0.4 K/mcL (0.0-1.3); Neutrophils # 2.8 K/mcL (1.6-8.9); Platelet Count 253 K/mcL (140-400); Red Blood Count 3.34 M/mcL (3.82-4.97); Red Cell Distribution Width 15.3 % (11.5-14.5); Segmented Neutrophils % 55.9 %
[2018-08-04 03:10] LABS: Calcium 8.4 mg/dL (8.6-10.3); Potassium 3.8 mEq/L (3.5-5.1)
[2018-08-04 03:36] LABS: Folate 8.9 ng/mL (3.0-16.0)
[2018-08-04] MEDS: *HR* Heparin 5,000 UNIT/ML VIAL SQ SCH (06:21)
[2018-08-04] MEDS: (Cyclosporine [Restasis] 1 DROP) OP SCH (07:56)
[2018-08-04] MEDS: ARIPiprazole 2 MG TABLET PO SCH (08:06)
[2018-08-04] MEDS: Topiramate 100 MG TABLET PO SCH ×2 (08:06→08:07)
[2018-08-04] MEDS: Aspirin Enteric Coated 81 MG Tablet PO SCH (08:06)
[2018-08-04] MEDS: lamoTRIgine 100 MG TABLET PO SCH (08:07)
[2018-08-04] MEDS: Primidone 50 MG TABLET PO SCH (08:08)
--- NOTE | 2018-08-04 10:00 | Neurology Progress Note ---
Date of Encounter: 08/04/18 Time of Encounter: 10:00 Assessment and Plan (1) Acute CVA (cerebrovascular accident) Current Visit: No Status: Acute Neuro consulted with concern for acute CVA Patient reporting left facial paresthesias and left-sided weakness of the arm and leg; symptoms have resolved this morning lasting less than 24 hours History includes TIAs, seizures, cerebral aneurysm S/P coiling, tremors TTE-EF 60%, moderate LV DD, no obvious evidence of PFO, no embolus found Head CT unremarkable CTA head and neck-S/P previous coil embolism of the right ICA aneurysm. Extensive streak artifacts limited eval of bilateral intracranial ICAs. However there is no convincing evidence of high-grade stenosis or focal occlusion involving the intracranial vasculature. The bulbous appearance of the anterior vena cava artery is likely secondary to confluence of vessels to aneurysm. Again, no high-grade stenosis or focal occlusion involving the cervical vasculature. MRI pending Neurological exam is nonfocal and nonlateralizing. No left-sided weakness noted. Patient reports that she is back to baseline. Neuro imaging pending. Recommend continuing aspirin and statin therapy for now. Would continue with PT evaluation. Continue neuro checks per protocol. 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 Initially, she presented with left facial and arm/leg paresthesias as well as left arm and leg weakness. She reports that her symptoms subsided overnight. She is back to baseline status and denies any other concerns at this time. Objective - Constitutional Vitals: Temp Pulse Resp BP Pulse Ox 98.6 F 69 16 116/70 98 08/04/18 07:53 08/04/18 07:53 08/04/18 07:53 08/04/18 07:53 08/04/18 07:53 Exam: Examination: General Examination: *CONSTITUTIONAL: Alert and oriented x3, no acute distress *GENERAL APPEARANCE OF PATIENT appears healthy and well groomed *EYES: pupils equal, round, reactive to light and accommodation, conjunctiva clear *CARDIOVASCULAR no peripheral edema, distal temperature normal, dorsalis pedis pulses normal. Musculoskeletal: *GAIT AND STATION no gait ataxia *ASSESSMENT OF MUSCLE STRENGTH IN THE UPPER AND LOWER EXTREMITIES bilateral deltoid, bicep, tricep, mattress stripper strength, hip flexors ,anterior tibialis, dorsoflexion of the foot 5/5 *MUSCLE TONE IN THE UPPER AND LOWER EXTREMITIES normal. No abnormal movements, fasciculations or atrophy identified. Neurological: *ORIENTATION to person, situation, time and place *RECURRENT AND REMOTE MEMORY intact *ATTENTION AND CONCENTRATION are normal *LANGUAGE FUNCTION no significant aphasia or dysarthia was noted. *FUND OF KNOWLEDGE aware of current events, past history, vocabulary *MENTAL attention span and concentration normal. *CN II optic fundi were normal, no papilledema noted. *CN III,IV, PERRLA extraocular eye movements were full, no nystagmus and no ptosis noted. *CN V shows normal sensation and jaw opens symmetrically. *CN VII shows normal facial movement symmetrically, upper and lower bilaterally. *CN VIII shows no significant hearing loss on exam *CN IX,,X palate elevated symmetrically *CN XI normal strength in the sternocleidomastoid muscles, symmetrical shoulder shrugging. *CN XII tongue protruded in the midline, with normal strength and movement. *SENSORY EXAMINATION light touch intact *REFLEXES: deep tendon reflexes were normal and symmetrical , grade 2/4 diffusely, no pathological reflexes were noted. *CEREBELLAR TESTING normal finger to nose, heel/knee/weinstein *PAIN LEVEL 0 - Neurological Exam Motor Examination: Present: full strength in all major muscle groups Motor examination - left side: 4/5: deltoids, biceps, triceps, wrist flexion, wrist extension, hip flexors, mattress stripper, quadriceps, tibialis Anterior, toe extension (EHL), plantarflexion Sensation intact: Present: intact Posture: Present: other (None) Reflex and gait examination: intact Mental Status Examination: Present: awake, alert, oriented to person, oriented to place, oriented to time, follows commands appropriately, answers questions appropriately, no agnosia, no aphasia, no aproxia Cranial nerve examination: Present: PERRL, EOMI, visual oneill intact, corneal reflexes brisk symmetrically, sensory to face intact, mastication intact, no facial asymmetry is present, no dysarthria, hearing is intact symmetrically, soft palate elevates bilaterally upon phonation, gag reflex intact, flexes SCM and trapezius muscles symmetrically with full power, tongue protrudes midline, no atrophy or facial fasiculations present Cerebellar examination: Present: no dysmetria, performs finger to nose and heel to weinstein symmetrically without ataxia, no gait ataxia, no truncal ataxia, no difficulty with rapid alternating movements Results - Laboratory Findings CBC and BMP: 08/04/18 01:18 08/04/18 01:18 Abnormal lab findings: Abnormal lab results RBC 3.34 M/mcL (3.82-4.97) L 08/04/18 01:18 Hgb 9.8 g/dL (11.5-15.4) L 08/04/18 01:18 Hct 31.9 % (35.3-44.9) L 08/04/18 01:18 MCHC 30.7 g/dL (31.6-35.5) L 08/04/18 01:18 RDW 15.3 % (11.5-14.5) H 08/04/18 01:18 Sodium 135 mEq/L (136-145) L 08/02/18 20:59 Chloride 109 mEq/L (98-107) H 08/04/18 01:18 1.28 mg/dL (0.60-1.20) H 08/04/18 01:18 Est GFR ( Amer) 51 (> 60) L 08/04/18 01:18 Est GFR (Non-Af Amer) 42 (> 60) L 08/04/18 01:18 Glucose 107 mg/dL (70-105) H 08/02/18 20:59 POC Glucose 112 mg/dL (70-99) H 08/03/18 17:00 5.9 % (-5.6) H 08/03/18 03:30 279 (280-300) L 08/02/18 20:59 Calcium 8.4 mg/dL (8.6-10.3) L 08/04/18 01:18 Iron 35 mcg/dL (50-170) L 08/03/18 03:30 % Saturation 9 % (15-50) L 08/03/18 03:30 AST 9 Units/L (13-39) L 08/03/18 03:30 ALT 4 Units/L (7-52) L 08/03/18 03:30 115 Units/L (34-104) H 08/03/18 03:30 5.6 g/dL (6.4-8.9) L 08/03/18 03:30 3.4 g/dL (3.5-5.7) L 08/03/18 03:30 2.2 g/dL (2.4-3.5) L 08/03/18 03:30 Vitamin B12 145 pg/mL (250-1100) L 08/04/18 01:18 Consult Discharge Plan - Plan Referrals: Maryann Saba CNP [Partnered Physician] - (APPOINTMENT HAS BEEN REQUESTED.)
[2018-08-04 12:15] VITALS: BP 107/66
--- NOTE | 2018-08-04 15:08 | Discharge Summary ---
- NOTES TO OUTPATIENT PROVIDER Notes to Outpatient Provider: Has TIA, cont ASA and Statin. Orders not resulted at time of discharge: Pending orders 08/02/18 23:12 ECG 12 lead ECG [ECG] Stat 08/02/18 23:46 Fecal Hemoccult [Occult Blood,Stool] [BF] Routine 08/03/18 04:00 Urinalysis reflex Microscopic [URIN] AM 0400 Date of Encounter: 08/04/18 Time of Encounter: 14:00 - Discharge Diagnosis (1) Anemia Priority: Secondary Status: Chronic Assessment and Plan: Pt also has vit B12 deficiency. Will give vitamin B12 by mouth supplement. If vitamin B12 deficiency not improved on by mouth supplement, need consider intrinsic factor antibody test to rule out pernicious anemia. Qualifiers: Anemia type: iron deficiency Iron deficiency anemia type: unspecified iron deficiency Qualified Code(s): D50.9 - Iron deficiency anemia, unspecified (2) Brain aneurysm Priority: Secondary Status: Chronic (3) DVT prophylaxis Priority: Secondary Status: Acute (4) TIA (transient ischemic attack) Priority: Primary Status: Acute (5) Acute CVA (cerebrovascular accident) Priority: Secondary Status: Ruled-out Hospital course: Ms. Mccarthy is a 67 year old female present to ER for left side arm and leg weakness. No facial drop, no slurred speech. Stroke alert called in ER, [facility] neurologist recommended no TPA. Patient's symptoms has improved spontaneously. Patient back to her baseline at this point. MRI negative for acute infarct. Echo and duplex carotid has been done, result are unremarkable. PTOT evaluation saw patient, no further PT needed. Neurology consult saw patient, recommend continue aspirin and atorvastatin. Patient will discharge home and continue follow-up with PCP as outpatient. Patient was found iron deficiency and vitamin B12 deficiency, by mouth supplement started. I have seen and examined the patient today. Patient's weakness completely resolved. Vitals are stable. Will DC patient home. Continue follow-up PCP. Discharge discussed with: patient - Time Spent with Patient Total time spent providing and/or coordinating discharge services: 40 minutes Time spent: Greater than 30 minutes - Discharge Medications Prescriptions: New Ferrous Sulfate 325 mg PO DAILY@0800 #30 tablet Cyanocobalamin (B-12) [Vitamin B12] 1,000 mcg PO DAILY 30 Days #30 tablet Continued Lamotrigine [Lamictal] 200 mg PO BID Topiramate [Topamax] 100 mg PO BID Cyclosporine [Restasis] 1 drop OP BID Topiramate [Topamax] 200 mg PO BID Citalopram Hydrobromide [Celexa] 40 mg PO DAILY Pantoprazole Sodium [Protonix] 40 mg PO DAILY Atorvastatin [Lipitor] 40 mg PO HS #30 tablet ARIPiprazole [Abilify] 2 mg PO DAILY Aspirin [Lo-Dose Aspirin EC] 81 mg PO DAILY Benztropine [Cogentin] 0.5 mg PO BID Latanoprost [Xalatan] 1 drop OP HS Primidone [Mysoline] 25 mg PO BID Furosemide [Lasix] 20 mg PO DAILY Home Medications: Lamotrigine [Lamictal] 200 mg PO BID 04/12/15 [History] Cyclosporine [Restasis] 1 drop OP BID 10/04/15 [History] Topiramate [Topamax] 100 mg PO BID 10/04/15 [History] Topiramate [Topamax] 200 mg PO BID 03/06/16 [History] Citalopram Hydrobromide [Celexa] 40 mg PO DAILY 08/14/16 [History] Pantoprazole Sodium [Protonix] 40 mg PO DAILY 08/14/16 [History] Atorvastatin [Lipitor] 40 mg PO HS #30 tablet 04/15/18 [Rx] ARIPiprazole [Abilify] 2 mg PO DAILY 08/02/18 [History] Aspirin [Lo-Dose Aspirin EC] 81 mg PO DAILY 08/02/18 [History] Benztropine [Cogentin] 0.5 mg PO BID 08/02/18 [History] Furosemide [Lasix] 20 mg PO DAILY 08/02/18 [History] Latanoprost [Xalatan] 1 drop OP HS 08/02/18 [History] Primidone [Mysoline] 25 mg PO BID 08/02/18 [History] Cyanocobalamin (B-12) [Vitamin B12] 1,000 mcg PO DAILY 30 Days #30 tablet 08/04/18 [Rx] Ferrous Sulfate 325 mg PO DAILY@0800 #30 tablet 08/04/18 [Rx] Allergies/Adverse Reactions: Allergy/AdvReac Type Severity Reaction Status Date / Time diazepam [From Valium] Allergy See Verified 08/03/18 00:20 Comments doxycycline Allergy See Verified 08/03/18 00:20 Comments hydrocodone [From Vicodin] Allergy Hives Verified 08/03/18 00:20 ibuprofen Allergy Hives Verified 08/03/18 00:20 sulfamethoxazole Allergy See Verified 08/03/18 00:20 [From Bactrim] Comments trimethoprim [From Bactrim] Allergy See Verified 08/03/18 00:20 Comments dextromethorphan AdvReac Severe Seizure Verified 08/03/18 00:20 doxylamine AdvReac Severe Seizure Verified 08/03/18 00:20 hydrocortisone AdvReac Severe Seizure Verified 08/03/18 00:20 [From Hydrocortone] oxycodone [Oxycodone] AdvReac Severe Seizure Verified 08/03/18 00:20 pseudoephedrine AdvReac Severe Seizure Verified 08/03/18 00:20 acetaminophen [From NyQuil] AdvReac See Verified 08/03/18 00:20 Comments diphenhydramine AdvReac Nausea Verified 08/03/18 00:20 [From Benadryl] Date of admission: 08/02/18 23:59 Primary care physician: PCP NONE Consults: 08/03/18 11:00 Consult to Neurology [CONS] Routine Consulting Provider: [facility] Reason for Consult: Left side weakness Call Completed: Yes Consult to Physical Therapy [CONS] Routine Comment: Evaluate, develop and implement POC Reason for Consult: Weakness, CVA? Does patient have active BEDREST order?: No Is patient medically & hemodynamically stable?: Yes Discharging clinician: Roselyn Akhtar Anticipated date of discharge: 08/04/18 - Constitutional Vitals: Temp Pulse Resp BP Pulse Ox 98.6 F 63 16 107/66 98 08/04/18 12:13 08/04/18 12:13 08/04/18 12:13 08/04/18 12:13 08/04/18 12:13 General appearance: Present: cooperative, A&O X 3, pleasant, no acute distress, answers questions appropriately Exam: Pt is AAO x 3, in NAD HEENT: NC/AT, PERRL Neck: Supple, no JVD, no LAD Lungs: CTA b/l Heart: S1S2, RRR Abd: Soft, nontender, BS present Ext: ROM wnl, no pedal edema Neuro: No focal deficit - Patient Status Disposition: Home, Self-Care Condition: Good Functional capacity at discharge: independent ambulation Overall status at discharge: patient is back to baseline - Discharge Instructions Follow Up With: Maryann Saba CNP [Partnered Physician] - (APPOINTMENT HAS BEEN REQUESTED.) Forms: ED Satisfaction Letter - Diet and Activity Activity: increase activity as tolerated Diet: advance to your usual diet
[2018-08-05] MEDS ORDERED: Cyanocobalamin (B-12) 1,000 MCG TABLET PO SCH (09:00)
== END 2018-08-04 16:18 | disposition home or self-care (01) ==
LOC: EMEROOARM 20:28 → 3BNU 20:28
PROVIDERS: ADMIT Internal Medicine; ATTEND Internal Medicine

== ENCOUNTER 2018-08-14 11:47 | Observation (INO) ==
--- NOTE | 2018-08-14 12:03 | Emergency Department Note ---
Disposition Clinical Impression: GI bleed Qualifiers: GI bleed type/associated pathology: melena Qualified Code(s): K92.1 - Melena Disposition: Admitted As Inpatient Time of Disposition: 17:04 GI Bleed HPI - General Stated complaint: Black Tarry Stools Time Seen by Provider: 08/14/18 12:01 Source: patient Mode of arrival: ambulatory Limitations: no limitations Nursing Notes Reviewed: Yes Vital Signs Reviewed: Yes - History of Present Illness HPI Narrative: 67-year-old female past medical history of GERD treated with pantoprazole, premalignant polyps identified last year on colonoscopy by Dr. Gage presenting for 2 day history of melena. Patient states that she was started on iron supplementation partially one week ago for anemia for the past 2 days has had black watery stools. Patient states she knew that this could be caused by iron and so she was unconcerned until today when she said she had one episode of black, tarry, sticky stool which she was concerned about for the possibility of melena. Patient states she experienced some cramping pain in her abdomen earlier today which spontaneously resolved and has no other concerns or complaints at this time. Patient states that she is "scared" because she had a brother who from colon cancer which had similar presentation Pt Subjective Complaint: melena Onset (ago): day(s) Consistency: Worsening Severity: moderate Associated symptoms: Reports: none - Related Data Home Medications Medication Instructions Recorded Confirmed Cyclosporine [Restasis] 1 drop OP BID 10/04/15 08/02/18 Topiramate [Topamax] 200 mg PO BID 03/06/16 08/14/18 Citalopram Hydrobromide [Celexa] 40 mg PO DAILY 08/14/16 08/14/18 Pantoprazole Sodium [Protonix] 40 mg PO BID 08/14/16 08/14/18 ARIPiprazole [Abilify] 2 mg PO DAILY 08/02/18 08/14/18 Benztropine [Cogentin] 0.5 mg PO BID 08/02/18 08/14/18 Furosemide [Lasix] 20 mg PO DAILY 08/02/18 08/14/18 Latanoprost [Xalatan] 1 drop BOTH EYES HS 08/02/18 08/14/18 Primidone [Mysoline] 50 mg PO DAILY 08/02/18 08/14/18 Aspirin [Adult Aspirin Regimen] 81 mg PO DAILY 08/14/18 08/14/18 Ferrous Sulfate 325 mg PO DAILY 08/14/18 08/14/18 Topiramate [Topamax] 100 mg PO BID 08/14/18 08/14/18 lamoTRIgine [Lamictal] 200 mg PO BID 08/14/18 08/14/18 Previous Rx's Medication Instructions Recorded Atorvastatin [Lipitor] 40 mg PO HS #30 tablet 04/15/18 Cyanocobalamin (B-12) [Vitamin B12] 1,000 mcg PO DAILY 30 Days #30 08/04/18 tablet Allergies Allergy/AdvReac Type Severity Reaction Status Date / Time diazepam [From Valium] Allergy See Verified 08/14/18 12:03 Comments doxycycline Allergy See Verified 08/14/18 12:03 Comments hydrocodone [From Vicodin] Allergy Hives Verified 08/14/18 12:03 ibuprofen Allergy Hives Verified 08/14/18 12:03 sulfamethoxazole Allergy See Verified 08/14/18 12:03 [From Bactrim] Comments trimethoprim [From Bactrim] Allergy See Verified 08/14/18 12:03 Comments dextromethorphan AdvReac Severe Seizure Verified 08/14/18 12:03 doxylamine AdvReac Severe Seizure Verified 08/14/18 12:03 hydrocortisone AdvReac Severe Seizure Verified 08/14/18 12:03 [From Hydrocortone] oxycodone [Oxycodone] AdvReac Severe Seizure Verified 08/14/18 12:03 pseudoephedrine AdvReac Severe Seizure Verified 08/14/18 12:03 acetaminophen [From NyQuil] AdvReac See Verified 08/14/18 12:03 Comments diphenhydramine AdvReac Nausea Verified 08/14/18 12:03 [From Benadryl] Review of Systems: Constitutional: Denies: fever, chills Cardiovascular: Denies: chest pain Respiratory: Denies: dyspnea, cough, hemoptysis Gastrointestinal: Patient admits to multiple episodes of dark, watery stool with one episode today of dark, tarry sticky stool. Denies: abdominal pain, nausea, vomiting, diarrhea, constipation, hematemesis, hematochezia Genitourinary: Denies: hematuria Musculoskeletal: Denies: back pain, neck pain Neurological: Denies: headache, weakness, lightheadedness/dizziness, numbness, paresthesias, difficulty with ambulation. Endocrine: Denies: fatigue All systems ED: reviewed and negative except as stated. Review of Systems: As Per [facility] Past Medical History - Past Medical History Attestation: Yes The following information was validated with the patient. 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 Neck: Trachea midline without deviation. Anterior neck is supple without swelling, no overt thyromegaly noted. Chest: Symmetric chest wall rise Heart: Cardiac rhythm and rate are regular with S1 and S2 , no S3 or S4 appreciated, no murmurs, rubs, or clicks. Lungs: Lungs are clear to auscultation bilaterally, without accessory muscle use or prolonged expiratory phase. No wheezes, rhonchi, rales or stridor appreciated. *Abdomen: Abdomen is flat, soft to palpation, normal bowel sounds, no abnormal mass. No abdominal bruit auscultated. Non-distended, non-rigid, no organomegaly, no ascites appreciated. No pulsatile mass, no tenderness or guarding to palpation in all four quadrants, no rebound Extremities: No evidence of pedal edema, joint swelling or erythema. Pul ses/motor/sensory intact in all 4 extremities. Back exam: No CVA tenderness. Psychiatric exam: Patient displays a normal affect and mood for the environment. No overt signs of hallucination. Integumentary: warm, dry, intact, normal color. No rash, cyanosis, diaphoresis, erythema, or pallor - General Limitations: no limitations General appearance: alert, in no apparent distress - Rectal Exam [employer] present during exam: Yes Rectal exam: Present: heme (+) stool, black stool (Aravind blood with clotting noted to rectal exam.) Course Course Narrative: Concern for GI bleed 2 large-bore IVs in peripheral veins 1 L fluid bolus Octreotide,pantoprazole CBC, BMP, hepatic panel, lipase Hemoccult, PT/INR, type and screen Vital Signs Temperature 98.4 F 08/14/18 12:01 Pulse Rate 87 08/14/18 12:01 Respiratory Rate 16 08/14/18 12:01 Blood Pressure 124/83 08/14/18 12:01 O2 Sat by Pulse Oximetry 96 08/14/18 12:01 Temperature 98.4 F 08/14/18 12:01 Pulse Rate 55 08/14/18 16:00 Respiratory Rate 12 08/14/18 13:12 Blood Pressure 132/76 08/14/18 16:00 O2 Sat by Pulse Oximetry 99 08/14/18 16:00 Oxygen Delivery Oxygen Delivery Room Air GI Bleed - [facility] Narrative Medical decision making narrative: Aravind blood or rectal exam Hemoccult positive stool Laboratory, EKG and imaging results otherwise unremarkable. Patient noted to hospital medicine service further dilation management of GI bleed. - Lab Data Lab results reviewed: Yes I reviewed the patient's lab results. Result diagrams: 08/14/18 12:23 08/14/18 12:23 Lab Results 08/14/18 08/14/18 08/14/18 Range/Units 12:23 12:23 12:23 WBC 5.0 (4.3-11.1) K/mcL RBC 3.41 L (3.82-4.97) M/mcL Hgb 10.1 L (11.5-15.4) g/dL Hct 32.8 L (35.3-44.9) % MCV 96.2 (83.0-100.0) fL MCH 29.6 (28.0-33.3) pg MCHC 30.8 L (31.6-35.5) g/dL RDW 15.6 H (11.5-14.5) % Plt Count 255 (140-400) K/mcL MPV 9.3 L (9.4-12.4) fL Immature Gran % 0.2 (0-4) % Seg Neutrophils % 63.4 % Lymphocytes % 23.4 % Monocytes % 7.8 % Eosinophils % 4.4 % Basophils % 0.8 % Neutrophils # 3.2 (1.6-8.9) K/mcL Lymphocytes # 1.2 (0.6-4.6) K/mcL Monocytes # 0.4 (0.0-1.3) K/mcL Eosinophils # 0.2 (0.0-0.6) K/mcL Basophils # 0.0 (0.0-0.2) K/mcL PT 11.1 (9.4-12.1) Seconds INR 1.0 Sodium 136 (136-145) mEq/L Potassium 3.9 (3.5-5.1) mEq/L Chloride 106 (98-107) mEq/L Carbon Dioxide 24 (23-29) mEq/L BUN 8 (8-23) mg/dL Creatinine 1.17 (0.60-1.20) mg/dL Est GFR ( Amer) 56 L (> 60) Est GFR (Non-Af Amer) 46 L (> 60) BUN/Creatinine Ratio 7 (6-26) Glucose 104 (70-105) mg/dL Calculated Osmolality 281 (280-300) Lactic Acid (0.5-2.2) mmol/L Calcium 8.9 (8.6-10.3) mg/dL Total Bilirubin 0.3 (0.3-1.0) mg/dL Direct Bilirubin 0.1 (0.0-0.2) mg/dL Indirect Bilirubin 0.2 (0.0-1.2) mg/dL AST 11 L (13-39) Units/L ALT 5 L (7-52) Units/L Alkaline Phosphatase 123 H (34-104) Units/L Serum Total Protein 6.3 L (6.4-8.9) g/dL Albumin 3.8 (3.5-5.7) g/dL Globulin 2.5 (2.4-3.5) g/dL Albumin/Globulin Ratio 1.5 (1.1-2.2) Lipase 30 (11-82) Units/L Stool Occult Bld Scrn (Negative) Blood Type Antibody Screen 08/14/18 08/14/18 08/14/18 Range/Units 12:23 12:25 13:17 WBC (4.3-11.1) K/mcL RBC (3.82-4.97) M/mcL Hgb (11.5-15.4) g/dL Hct (35.3-44.9) % MCV (83.0-100.0) fL MCH (28.0-33.3) pg MCHC (31.6-35.5) g/dL RDW (11.5-14.5) % Plt Count (140-400) K/mcL MPV (9.4-12.4) fL Immature Gran % (0-4) % Seg Neutrophils % % Lymphocytes % % Monocytes % % Eosinophils % % Basophils % % Neutrophils # (1.6-8.9) K/mcL Lymphocytes # (0.6-4.6) K/mcL Monocytes # (0.0-1.3) K/mcL Eosinophils # (0.0-0.6) K/mcL Basophils # (0.0-0.2) K/mcL PT (9.4-12.1) Seconds INR Sodium (136-145) mEq/L Potassium (3.5-5.1) mEq/L Chloride (98-107) mEq/L Carbon Dioxide (23-29) mEq/L BUN (8-23) mg/dL Creatinine (0.60-1.20) mg/dL Est GFR ( Amer) (> 60) Est GFR (Non-Af Amer) (> 60) BUN/Creatinine Ratio (6-26) Glucose (70-105) mg/dL Calculated Osmolality (280-300) Lactic Acid 0.7 (0.5-2.2) mmol/L Calcium (8.6-10.3) mg/dL Total Bilirubin (0.3-1.0) mg/dL Direct Bilirubin (0.0-0.2) mg/dL Indirect Bilirubin (0.0-1.2) mg/dL AST (13-39) Units/L ALT (7-52) Units/L Alkaline Phosphatase (34-104) Units/L Serum Total Protein (6.4-8.9) g/dL Albumin (3.5-5.7) g/dL Globulin (2.4-3.5) g/dL Albumin/Globulin Ratio (1.1-2.2) Lipase (11-82) Units/L Stool Occult Bld Scrn Positive A (Negative) Blood Type O POSITIVE Antibody Screen NEGATIVE - Radiology Data Radiology results reviewed: Yes I reviewed the patient's radiology results. Abdomen/Pelvis CT 08/14/18 12:56 IMPRESSION: 1. No acute infective or inflammatory process. 2. Punctate nonobstructing right renal calculus. 3. Limited evaluation of GI tract in the absence of IV and intraluminal contrast. Colonic diverticulosis noted. D/ / Florencio Andrea MD / Florencio Andrea MD Interpreting Provider: Florencio Andrea MD - EKG Data EKG attestation: Yes I reviewed and interpreted this EKG. EKG results narrative: Patient EKG shows sinus rhythm with heart rate of 60 bpm, IA interval 201 ms, QR oriental orthodox 91 ms, QT/QTc interval 418/445 ms effectively. There are no significant ST segment elevations, depressions, pathologic Q's, abnormal T-wave inversions, normal in signs of acute ischemic change. EKG performed today is generally consistent with prior EKG performed on 04/15/2018.
--- NOTE | 2018-08-14 12:20 | Emergency Department Note ---
Disposition Clinical Impression: GI bleed Qualifiers: GI bleed type/associated pathology: melena Qualified Code(s): K92.1 - Melena Disposition: Admitted As Inpatient Time of Disposition: 16:04 General Adult HPI - General Chief complaint: ED GI Bleed Stated complaint: Black Tarry Stools Time Seen by Provider: 08/14/18 12:01 Source: patient Limitations: no limitations - History of Present Illness Pain Scale: 2 - Related Data Home Medications Medication Instructions Recorded Confirmed Lamotrigine [Lamictal] 200 mg PO BID 04/12/15 08/02/18 Cyclosporine [Restasis] 1 drop OP BID 10/04/15 08/02/18 Topiramate [Topamax] 100 mg PO BID 10/04/15 08/02/18 Topiramate [Topamax] 200 mg PO BID 03/06/16 08/02/18 Citalopram Hydrobromide [Celexa] 40 mg PO DAILY 08/14/16 08/02/18 Pantoprazole Sodium [Protonix] 40 mg PO DAILY 08/14/16 08/02/18 ARIPiprazole [Abilify] 2 mg PO DAILY 08/02/18 08/02/18 Aspirin [Lo-Dose Aspirin EC] 81 mg PO DAILY 08/02/18 08/02/18 Benztropine [Cogentin] 0.5 mg PO BID 08/02/18 08/02/18 Furosemide [Lasix] 20 mg PO DAILY 08/02/18 08/02/18 Latanoprost [Xalatan] 1 drop OP HS 08/02/18 08/02/18 Primidone [Mysoline] 25 mg PO BID 08/02/18 08/02/18 Previous Rx's Medication Instructions Recorded Atorvastatin [Lipitor] 40 mg PO HS #30 tablet 04/15/18 Cyanocobalamin (B-12) [Vitamin B12] 1,000 mcg PO DAILY 30 Days #30 08/04/18 tablet Ferrous Sulfate 325 mg PO DAILY@0800 #30 tablet 08/04/18 Allergies Allergy/AdvReac Type Severity Reaction Status Date / Time diazepam [From Valium] Allergy See Verified 08/14/18 12:03 Comments doxycycline Allergy See Verified 08/14/18 12:03 Comments hydrocodone [From Vicodin] Allergy Hives Verified 08/14/18 12:03 ibuprofen Allergy Hives Verified 08/14/18 12:03 sulfamethoxazole Allergy See Verified 08/14/18 12:03 [From Bactrim] Comments trimethoprim [From Bactrim] Allergy See Verified 08/14/18 12:03 Comments dextromethorphan AdvReac Severe Seizure Verified 08/14/18 12:03 doxylamine AdvReac Severe Seizure Verified 08/14/18 12:03 hydrocortisone AdvReac Severe Seizure Verified 08/14/18 12:03 [From Hydrocortone] oxycodone [Oxycodone] AdvReac Severe Seizure Verified 08/14/18 12:03 pseudoephedrine AdvReac Severe Seizure Verified 08/14/18 12:03 acetaminophen [From NyQuil] AdvReac See Verified 08/14/18 12:03 Comments diphenhydramine AdvReac Nausea Verified 08/14/18 12:03 [From Benadryl] Past Medical History - Past Medical History Medical history: Reports: arthritis, asthma, COPD, GERD, seizures, TIA Surgical history: Reports: appendectomy, cholecystectomy, hysterectomy, knee replacement, other Psychiatric history: Reports: anxiety, depression 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, 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 - Social History Smoking Status: Never smoker Smokeless Tobacco Status: No Alcohol use: Reports: none Drug use: Reports: none Physical Exam - General Limitations: no limitations General appearance: alert, in no apparent distress Course Vital Signs Temperature 98.4 F 08/14/18 12:01 Pulse Rate 87 08/14/18 12:01 Respiratory Rate 16 08/14/18 12:01 Blood Pressure 124/83 08/14/18 12:01 O2 Sat by Pulse Oximetry 96 08/14/18 12:01 Temperature 98.4 F 08/14/18 12:01 Pulse Rate 58 08/14/18 14:53 Respiratory Rate 12 08/14/18 13:12 Blood Pressure 125/63 08/14/18 14:53 O2 Sat by Pulse Oximetry 100 08/14/18 14:53 Oxygen Delivery Oxygen Delivery Room Air Medical Decision Making - Lab Data Result diagrams: 08/14/18 12:23 08/14/18 12:23 Lab Results 08/14/18 08/14/18 08/14/18 Range/Units 12:23 12:23 12:23 WBC 5.0 (4.3-11.1) K/mcL RBC 3.41 L (3.82-4.97) M/mcL Hgb 10.1 L (11.5-15.4) g/dL Hct 32.8 L (35.3-44.9) % MCV 96.2 (83.0-100.0) fL MCH 29.6 (28.0-33.3) pg MCHC 30.8 L (31.6-35.5) g/dL RDW 15.6 H (11.5-14.5) % Plt Count 255 (140-400) K/mcL MPV 9.3 L (9.4-12.4) fL Immature Gran % 0.2 (0-4) % Seg Neutrophils % 63.4 % Lymphocytes % 23.4 % Monocytes % 7.8 % Eosinophils % 4.4 % Basophils % 0.8 % Neutrophils # 3.2 (1.6-8.9) K/mcL Lymphocytes # 1.2 (0.6-4.6) K/mcL Monocytes # 0.4 (0.0-1.3) K/mcL Eosinophils # 0.2 (0.0-0.6) K/mcL Basophils # 0.0 (0.0-0.2) K/mcL PT 11.1 (9.4-12.1) Seconds INR 1.0 Sodium 136 (136-145) mEq/L Potassium 3.9 (3.5-5.1) mEq/L Chloride 106 (98-107) mEq/L Carbon Dioxide 24 (23-29) mEq/L BUN 8 (8-23) mg/dL Creatinine 1.17 (0.60-1.20) mg/dL Est GFR ( Amer) 56 L (> 60) Est GFR (Non-Af Amer) 46 L (> 60) BUN/Creatinine Ratio 7 (6-26) Glucose 104 (70-105) mg/dL Calculated Osmolality 281 (280-300) Lactic Acid (0.5-2.2) mmol/L Calcium 8.9 (8.6-10.3) mg/dL Total Bilirubin 0.3 (0.3-1.0) mg/dL Direct Bilirubin 0.1 (0.0-0.2) mg/dL Indirect Bilirubin 0.2 (0.0-1.2) mg/dL AST 11 L (13-39) Units/L ALT 5 L (7-52) Units/L Alkaline Phosphatase 123 H (34-104) Units/L Serum Total Protein 6.3 L (6.4-8.9) g/dL Albumin 3.8 (3.5-5.7) g/dL Globulin 2.5 (2.4-3.5) g/dL Albumin/Globulin Ratio 1.5 (1.1-2.2) Lipase 30 (11-82) Units/L Stool Occult Bld Scrn (Negative) Blood Type Antibody Screen 08/14/18 08/14/18 08/14/18 Range/Units 12:23 12:25 13:17 WBC (4.3-11.1) K/mcL RBC (3.82-4.97) M/mcL Hgb (11.5-15.4) g/dL Hct (35.3-44.9) % MCV (83.0-100.0) fL MCH (28.0-33.3) pg MCHC (31.6-35.5) g/dL RDW (11.5-14.5) % Plt Count (140-400) K/mcL MPV (9.4-12.4) fL Immature Gran % (0-4) % Seg Neutrophils % % Lymphocytes % % Monocytes % % Eosinophils % % Basophils % % Neutrophils # (1.6-8.9) K/mcL Lymphocytes # (0.6-4.6) K/mcL Monocytes # (0.0-1.3) K/mcL Eosinophils # (0.0-0.6) K/mcL Basophils # (0.0-0.2) K/mcL PT (9.4-12.1) Seconds INR Sodium (136-145) mEq/L Potassium (3.5-5.1) mEq/L Chloride (98-107) mEq/L Carbon Dioxide (23-29) mEq/L BUN (8-23) mg/dL Creatinine (0.60-1.20) mg/dL Est GFR ( Amer) (> 60) Est GFR (Non-Af Amer) (> 60) BUN/Creatinine Ratio (6-26) Glucose (70-105) mg/dL Calculated Osmolality (280-300) Lactic Acid 0.7 (0.5-2.2) mmol/L Calcium (8.6-10.3) mg/dL Total Bilirubin (0.3-1.0) mg/dL Direct Bilirubin (0.0-0.2) mg/dL Indirect Bilirubin (0.0-1.2) mg/dL AST (13-39) Units/L ALT (7-52) Units/L Alkaline Phosphatase (34-104) Units/L Serum Total Protein (6.4-8.9) g/dL Albumin (3.5-5.7) g/dL Globulin (2.4-3.5) g/dL Albumin/Globulin Ratio (1.1-2.2) Lipase (11-82) Units/L Stool Occult Bld Scrn Positive A (Negative) Blood Type O POSITIVE Antibody Screen NEGATIVE Attestation Statement - Attestation Attestation: I examined this patient and my medical decision-making was reviewed with the Resident Physician. I agree with the documented findings, disposition and treatment plan as described except to the extent set forth below. Patient presents to the ED with a chief complaint of dark tarry stools. Onset a few days ago. Started his constipation, but gradually increased to dark stools that are pasty. She has some mild mid abdominal pain. She denies any history of ulcers. She denies any NSAID use. She has had a prior colonoscopy that showed some precancerous lesions. Denies any liver disease. On examination she is in no distress. She has some midabdominal tenderness. Plan. Labs, CT, type and cross. Stool Hemoccult was positive. CT unremarkable. Hemoglobin is stable. We will admit. EKG is normal sinus rhythm. It was reviewed with the resident. She has some anteroseptal T-wave inversions are not new. Abdomen/Pelvis CT 08/14/18 12:56 IMPRESSION: 1. No acute infective or inflammatory process. 2. Punctate nonobstructing right renal calculus. 3. Limited evaluation of GI tract in the absence of IV and intraluminal contrast. Colonic diverticulosis noted. D/ / Florencio Andrea MD / Florencio Andrea MD Interpreting Provider: Florencio Andrea MD
[2018-08-14] MEDS ORDERED: 0.9 % Sodium Chloride 1,000 ML IVC ONE (12:30)
[2018-08-14] MEDS ORDERED: Octreotide 50 MCG/ML SYRINGE IVP ONE (12:31)
[2018-08-14] MEDS ORDERED: Pantoprazole 80 MG in 0.9 % Sodium Chloride 50 ML IVPB ONE (12:31)
[2018-08-14 12:36] LABS: Basophils % 0.8 %; Eosinophils # 0.2 K/mcL (0.0-0.6); Eosinophils % 4.4 %; Hematocrit 32.8 % (35.3-44.9); Hemoglobin 10.1 g/dL (11.5-15.4); Immature Granulocytes % 0.2 % (0-4); Lymphocytes # 1.2 K/mcL (0.6-4.6); Lymphocytes % 23.4 %; Mean Corpuscular HGB Conc 30.8 g/dL (31.6-35.5); Mean Corpuscular Hemoglobin 29.6 pg (28.0-33.3); Mean Corpuscular Volume 96.2 fL (83.0-100.0); Mean Platelet Volume 9.3 fL (9.4-12.4); Monocytes # 0.4 K/mcL (0.0-1.3); Monocytes % 7.8 %; Neutrophils # 3.2 K/mcL (1.6-8.9); Platelet Count 255 K/mcL (140-400); Red Blood Count 3.41 M/mcL (3.82-4.97); Red Cell Distribution Width 15.6 % (11.5-14.5); Segmented Neutrophils % 63.4 %
[2018-08-14 12:48] LABS: Prothrombin Time 11.1 Seconds (9.4-12.1)
[2018-08-14 12:56] LABS: Albumin 3.8 g/dL (3.5-5.7); Albumin/Globulin Ratio 1.5 (1.1-2.2); Bilirubin,Direct 0.1 mg/dL (0.0-0.2); Bilirubin,Indirect 0.2 mg/dL (0.0-1.2); Bilirubin,Total 0.3 mg/dL (0.3-1.0); Calcium 8.9 mg/dL (8.6-10.3); Globulin 2.5 g/dL (2.4-3.5); Potassium 3.9 mEq/L (3.5-5.1); Total Protein 6.3 g/dL (6.4-8.9)
--- NOTE | 2018-08-14 17:13 | Internal Med History&Physical ---
Date of Encounter: 08/14/18 Time of Encounter: 17:11 Internal Medicine - H&P: HPI Chief complaint: black stools Admitted From: Home Plans for Post Hospital Care: Home History of present illness: Ms. Mccarthy is a 67 year old female with past medical history of COPD, seizure disorder, GERD, arthritis, anxiety depression, diastolic CHF who was recently discharged after a TIA episode with iron supplementation came in with complaint of melanotic stool for past 3 days. Patient had colonoscopy done about a year ago which showed tubular D Mark near ileocecal valve which was not a high-grade on pathology. Patient was found to have stool occult positive her hemoglobin was around baseline in ER. Patient denies any yuliana right red blood in stool. Denied any dizziness, chest pain, shortness of breath. Had some abdominal tenderness . She became worried about possible colon cancer because her brother had 1 and from it. Admission was requested further for evaluation of GI bleed. Patient has been on aspirin for a long time and denies any previous GI bleed. She has history of seizure disorder with last about 4 months ago but is on her old antiseizure regimen and is being followed by neurology. Denies any chest pain or urinary complaints. Past Med Surg Social Fam HX - Past Medical History Medical history: arthritis, asthma, COPD, GERD, seizures, TIA Additional medical history: epilepsy Psychiatric history: anxiety, depression - Past Surgical History Surgical History: appendectomy, cholecystectomy, hysterectomy, knee replacement, other Additional surgical history: tonsils - skull surgery for deformity as a child -. coiling for brain aneurysm 2009 - Social History Smoking Status: Never smoker Smokeless Tobacco Status: No Alcohol use: none Drug use: none - Family History Mother Adopted: No Living Status: Hx Family Cardiac Disorders: Yes (htn) Hx Family Respiratory Disorders: No Hx Family Cancer: Yes (breast cancer) Hx Family GI Disorders: No Hx Family Endocrine Disorder: No Hx Family Neuromuscular Disorders: No Hx Family Neurologic Disorders: No Hx Family HEENT Disorders: No Hx Family Autoimmune Disorders: No Internal Medicine - H&P: Meds Cyclosporine [Restasis] 1 drop OP BID 10/04/15 [History] Topiramate [Topamax] 200 mg PO BID 03/06/16 [History] Citalopram Hydrobromide [Celexa] 40 mg PO DAILY 08/14/16 [History] Pantoprazole Sodium [Protonix] 40 mg PO BID 08/14/16 [History] Atorvastatin [Lipitor] 40 mg PO HS #30 tablet 04/15/18 [Rx] ARIPiprazole [Abilify] 2 mg PO DAILY 08/02/18 [History] Benztropine [Cogentin] 0.5 mg PO BID 08/02/18 [History] Furosemide [Lasix] 20 mg PO DAILY 08/02/18 [History] Latanoprost [Xalatan] 1 drop BOTH EYES HS 08/02/18 [History] Primidone [Mysoline] 50 mg PO DAILY 08/02/18 [History] Cyanocobalamin (B-12) [Vitamin B12] 1,000 mcg PO DAILY 30 Days #30 tablet 08/04/18 [Rx] Aspirin [Adult Aspirin Regimen] 81 mg PO DAILY 08/14/18 [History] Ferrous Sulfate 325 mg PO DAILY 08/14/18 [History] Topiramate [Topamax] 100 mg PO BID 08/14/18 [History] lamoTRIgine [Lamictal] 200 mg PO BID 08/14/18 [History] Allergy/AdvReac Type Severity Reaction Status Date / Time diazepam [From Valium] Allergy See Verified 08/14/18 12:03 Comments doxycycline Allergy See Verified 08/14/18 12:03 Comments hydrocodone [From Vicodin] Allergy Hives Verified 08/14/18 12:03 ibuprofen Allergy Hives Verified 08/14/18 12:03 sulfamethoxazole Allergy See Verified 08/14/18 12:03 [From Bactrim] Comments trimethoprim [From Bactrim] Allergy See Verified 08/14/18 12:03 Comments dextromethorphan AdvReac Severe Seizure Verified 08/14/18 12:03 doxylamine AdvReac Severe Seizure Verified 08/14/18 12:03 hydrocortisone AdvReac Severe Seizure Verified 08/14/18 12:03 [From Hydrocortone] oxycodone [Oxycodone] AdvReac Severe Seizure Verified 08/14/18 12:03 pseudoephedrine AdvReac Severe Seizure Verified 08/14/18 12:03 acetaminophen [From NyQuil] AdvReac See Verified 08/14/18 12:03 Comments diphenhydramine AdvReac Nausea Verified 08/14/18 12:03 [From Benadryl] All Systems PM: A 10-system review of systems was performed and is negative for pertinent findings except as documented above in the HPI. - Constitutional Vitals: Temp Pulse Resp BP Pulse Ox 98.4 F 55 12 132/76 99 08/14/18 12:01 08/14/18 16:00 08/14/18 13:12 08/14/18 16:00 08/14/18 16:00 Exam: Constitutional: Vitals as noted. Conversant. No Apparent Distress.Obese Eyes : Sclera white, conjunctiva clear, no lid lag, PEARLA. ENT : Grossly normal hearing. Moist mucus membranes. No JVD, no cervical lymphadenopathy. no thyromegaly or mass. Respiratory : Clear to auscultation bilaterally. No accessory muscle use, rales, rhonchi or wheezes Cardiovascular : RRR, +S1, +S2. no murmur, gallop, rubs. No chest wall tenderness GI/Abdominal : Soft, Non-distended, normal bowel sounds, no peritoneal signs. Mild RUQ and suprapubic tenderness Musculoskeletal: no deformity noted. no edema or cyanosis. warm extremities, pulses palpable and symmetrical in UE/LE. no calf tenderness. Neurological: AO X3, CN II-XII grossly intact, grossly normal motor and sensory exam. Skin: No skin rash, lesions or ulcers noted. Internal Med - H&P Results - Labs CBC & Chem 7: 08/14/18 12:23 08/14/18 12:23 Labs: Short CBC 08/14/18 Range/Units 12:23 WBC 5.0 (4.3-11.1) K/mcL Hgb 10.1 L (11.5-15.4) g/dL Hct 32.8 L (35.3-44.9) % Plt Count 255 (140-400) K/mcL Neutrophils # 3.2 (1.6-8.9) K/mcL BMP 08/14/18 12:23 Sodium 136 Potassium 3.9 Chloride 106 Carbon Dioxide 24 BUN 8 Creatinine 1.17 Glucose 104 Calcium 8.9 Liver Function 08/14/18 Range/Units 12:23 Total Bilirubin 0.3 (0.3-1.0) mg/dL Direct Bilirubin 0.1 (0.0-0.2) mg/dL AST 11 L (13-39) Units/L ALT 5 L (7-52) Units/L Alkaline Phosphatase 123 H (34-104) Units/L Albumin 3.8 (3.5-5.7) g/dL - EKG Data -: EKG Interpreted by Myself EKG shows normal: sinus rhythm - Impressions ITS Impressions Abdomen/Pelvis CT 08/14/18 12:56 IMPRESSION: 1. No acute infective or inflammatory process. 2. Punctate nonobstructing right renal calculus. 3. Limited evaluation of GI tract in the absence of IV and intraluminal contrast. Colonic diverticulosis noted. D/ / Florencio Andrea MD / Florencio Andrea MD Interpreting Provider: Florencio Andrea MD - Assessment and Plan (1) Melena Current Visit: Yes Status: Acute Assessment and plan: Keep on clear liquid diet and NPO after midnight for possible procedure. Will consult GI Dark color stool could be related to iron supplementation. No indication for transfusion (2) GERD (gastroesophageal reflux disease) Current Visit: Yes Status: Acute Assessment and plan: On PPI Qualifiers: Esophagitis presence: esophagitis presence not specified Qualified Code(s): K21.9 - Gastro-esophageal reflux disease without esophagitis (3) Diastolic CHF Current Visit: Yes Status: Acute Assessment and plan: Not in exacerbation Continue home Lasix Blood pressure is mildly elevated but patient not on any anti-hypertensive medication. Given echo findings of diastolic CHF patient should be on antihypertensive we will defer to outpatient for now. Qualifiers: Heart failure chronicity: chronic Qualified Code(s): I50.32 - Chronic diastolic (congestive) heart failure (4) DVT prophylaxis Current Visit: No Status: Acute Assessment and plan: EPC D (5) COPD (chronic obstructive pulmonary disease) Current Visit: No Status: Chronic Assessment and plan: Not in exacerbation. As needed bronchodilators. Qualifiers: Emphysema type: unspecified Qualified Code(s): J43.9 - Emphysema, unspecified (6) Depression Current Visit: No Status: Chronic Assessment and plan: Continue home medications Qualifiers: Depression Type: unspecified Qualified Code(s): F32.9 - Major depressive disorder, single episode, unspecified (7) Seizure Current Visit: No Status: Chronic Assessment and plan: Continue home antiseizure medications (8) TIA (transient ischemic attack) Current Visit: No Status: Suspected Assessment and plan: Continue home statin. Hold aspirin for now Qualifiers: Transient cerebral ischemia type: unspecified Qualified Code(s): G45.9 - Transient cerebral ischemic attack, unspecified - Time Spent With Patient Total time spent is greater than 50% in coordination of care (as documented) at patient's floor/unit and/or counseling patient:
[2018-08-14] MEDS ORDERED: Naloxone 0.4 MG/ML INJ IVP PRN (17:14)
[2018-08-14] MEDS ORDERED: Ipratropium/Albuterol Neb 3 ML IH PRN (18:22)
[2018-08-14] MEDS: Topiramate 100 MG TABLET PO SCH ×2 (21:20→21:21)
[2018-08-14] MEDS: lamoTRIgine 100 MG TABLET PO SCH (21:21)
[2018-08-14] MEDS: Latanoprost 2.5 ML BOTTLE BOTH EYES SCH (21:22)
[2018-08-14] MEDS: Primidone 50 MG TABLET PO SCH (21:28)
[2018-08-15 02:37] LABS: Basophils # 0.1 K/mcL (0.0-0.2); Basophils % 0.9 %; Eosinophils # 0.2 K/mcL (0.0-0.6); Eosinophils % 4.2 %; Hematocrit 34.5 % (35.3-44.9); Hemoglobin 10.3 g/dL (11.5-15.4); Immature Granulocytes % 0.2 % (0-4); Lymphocytes # 1.7 K/mcL (0.6-4.6); Lymphocytes % 29.8 %; Mean Corpuscular HGB Conc 29.9 g/dL (31.6-35.5); Mean Corpuscular Hemoglobin 28.9 pg (28.0-33.3); Mean Corpuscular Volume 96.9 fL (83.0-100.0); Mean Platelet Volume 9.7 fL (9.4-12.4); Monocytes # 0.5 K/mcL (0.0-1.3); Monocytes % 8.2 %; Neutrophils # 3.3 K/mcL (1.6-8.9); Platelet Count 240 K/mcL (140-400); Red Blood Count 3.56 M/mcL (3.82-4.97); Red Cell Distribution Width 15.4 % (11.5-14.5); Segmented Neutrophils % 56.7 %
[2018-08-15] MEDS: Pantoprazole 40 MG VIAL IVP SCH ×2 (06:32→18:10)
--- NOTE | 2018-08-15 11:32 | Internal Med Progress Note ---
Hospitalist Progress Note - Encounter Date of Encounter: 08/15/18 Time of Encounter: 11:24 - Subjective Interval History: no active bleeding. reviewed lab with a stable hemoglobin. A stable vitals. Patient denies fever chills nausea vomiting headache dizziness chest pain shortness of breath abdominal pain diarrhea melena hematochezia or hematemesis. - Exam Vitals: Temp Pulse Resp BP Pulse Ox 98.3 F 67 18 126/78 98 08/15/18 06:35 08/15/18 06:35 08/15/18 06:35 08/15/18 06:35 08/15/18 06:35 Exam: Constitutional: No acute distress Eyes : EOMI, PEARLA. ENT : Grossly normal hearing. Moist mucus membranes. Respiratory : Clear to auscultation bilaterally. Cardiovascular : RRR, +S1, +S2. no murmur GI/Abdominal : Soft, Non-distended, normal bowel sounds, no peritoneal signs. Mild right lower quadrant tenderness Musculoskeletal: no deformity noted. no edema or cyanosis. warm extremities, pulses palpable and symmetrical in UE/LE. no calf tenderness. Neurological: AO X3, CN II-XII grossly intact, grossly normal motor and sensory exam. Skin: No skin rash, lesions or ulcers noted. - Assessment and Plan (1) Melena Current Visit: Yes Status: Acute Assessment and Plan: Keep on clear liquid diet and NPO after midnight for upper and lower GI endoscopy tomorrow morning. Discussed with GI team. No further melena since admission. Stable hemoglobin. (2) TIA (transient ischemic attack) Current Visit: No Status: Suspected Assessment and Plan: Continue home statin. Hold aspirin for now (3) Depression Current Visit: No Status: Chronic Assessment and Plan: Continue home medications (4) COPD (chronic obstructive pulmonary disease) Current Visit: No Status: Chronic Assessment and Plan: Not in exacerbation. As needed bronchodilators. (5) Seizure Current Visit: No Status: Chronic Assessment and Plan: Continue home antiseizure medications (6) GERD (gastroesophageal reflux disease) Current Visit: Yes Status: Acute Assessment and Plan: On PPI (7) Diastolic CHF Current Visit: Yes Status: Acute Assessment and Plan: Not in exacerbation Continue home Lasix Blood pressure well controlled. Given echo findings of diastolic CHF patient should be on antihypertensive we will defer to outpatient for now. (8) DVT prophylaxis Current Visit: No Status: Acute Assessment and Plan: EPC D - Time Spent with Patient Total time spent is greater than 50% in coordination of care (as documented) at patient's floor/unit and/or counseling patient: 25 - 35 minutes Plan of Care Discussed with: patient Internal Medicine: Result - Labs CBC & Chem 7: 08/15/18 01:53 08/14/18 12:23 Labs: Short CBC 08/14/18 08/15/18 Range/Units 12:23 01:53 WBC 5.0 5.7 (4.3-11.1) K/mcL Hgb 10.1 L 10.3 L (11.5-15.4) g/dL Hct 32.8 L 34.5 L (35.3-44.9) % Plt Count 255 240 (140-400) K/mcL Neutrophils # 3.2 3.3 (1.6-8.9) K/mcL BMP 08/14/18 12:23 Sodium 136 Potassium 3.9 Chloride 106 Carbon Dioxide 24 BUN 8 Creatinine 1.17 Glucose 104 Calcium 8.9 Liver Function 08/14/18 Range/Units 12:23 Total Bilirubin 0.3 (0.3-1.0) mg/dL Direct Bilirubin 0.1 (0.0-0.2) mg/dL AST 11 L (13-39) Units/L ALT 5 L (7-52) Units/L Alkaline Phosphatase 123 H (34-104) Units/L Albumin 3.8 (3.5-5.7) g/dL - ABG Interpretation ABG results: PT/INR, D-dimer PT 11.1 Seconds (9.4-12.1) 08/14/18 12:23 - Impressions Impressions Abdomen/Pelvis CT 08/14/18 12:56 IMPRESSION: 1. No acute infective or inflammatory process. 2. Punctate nonobstructing right renal calculus. 3. Limited evaluation of GI tract in the absence of IV and intraluminal contrast. Colonic diverticulosis noted. D/ / Florencio Andrea MD / Florencio Andrea MD Interpreting Provider: Florencio Andrea MD Consult Discharge Plan - Plan Referrals: Maryann Saba, [employer] SPECIALIST [Primary Care Provider] - (2) TIA (transient ischemic attack) Qualifiers: Transient cerebral ischemia type: unspecified Qualified Code(s): G45.9 - Transient cerebral ischemic attack, unspecified (3) Depression Qualifiers: Depression Type: unspecified Qualified Code(s): F32.9 - Major depressive disorder, single episode, unspecified (4) COPD (chronic obstructive pulmonary disease) Qualifiers: Emphysema type: unspecified Qualified Code(s): J43.9 - Emphysema, unspecified (6) GERD (gastroesophageal reflux disease) Qualifiers: Esophagitis presence: esophagitis presence not specified Qualified Code(s): K21.9 - Gastro-esophageal reflux disease without esophagitis (7) Diastolic CHF Qualifiers: Heart failure chronicity: chronic Qualified Code(s): I50.32 - Chronic diastolic (congestive) heart failure
[2018-08-15] MEDS: ARIPiprazole 2 MG TABLET PO SCH (11:56)
[2018-08-15] MEDS: lamoTRIgine 100 MG TABLET PO SCH ×2 (11:56→20:48)
[2018-08-15] MEDS: Topiramate 100 MG TABLET PO SCH ×4 (11:56→20:48)
--- NOTE | 2018-08-15 16:36 | Gastroenterology Consult Note ---
Date of Encounter: 08/15/18 Time of Encounter: 10:10 - Assessment and plan (1) Melena Current Visit: Yes Status: Acute Assessment and plan: Patient with melena for 3 days, no further episodes. Hgb stable at baseline. Fecal occult blood test positive. Plan for EGD and colonoscopy tomorrow. Clear liquid diet today, no red or purple. NPO at midnight. If unable tolerate NuLytely please use MiraLAX prep. If not clear by 6 AM, give 2 tap water enemas. (2) Anemia Current Visit: No Status: Chronic Assessment and plan: Baseline Hgb 10-11. On admission Hgb 10.1 and today Hgb 10.3 with MCV 96.9. Fecal occult blood test positive. Continue to monitor CBC and transfuse PRBC as needed. Plan for EGD and colonoscopy tomorrow. Clear liquid diet today, no red or purple. NPO at midnight. If unable tolerate NuLytely please use MiraLAX prep. If not clear by 6 AM, give 2 tap water enemas. Qualifiers: Anemia type: iron deficiency Iron deficiency anemia type: unspecified iron deficiency Qualified Code(s): D50.9 - Iron deficiency anemia, unspecified - Time Spent With Patient Total time spent is greater than 50% in coordination of care (as documented) at patient's floor/unit and/or counseling patient: GI History of Present Illness - Data of Consult Patient: new to practice Consult date: 08/15/18 Requesting Physician: Leann White - Consult Narrative Reason for consult: Melena History of present illness: Ms. Mccarthy is a 67 year old female with PMHx of arthritis, COPD, GERD, seizures, TIA was admitted with complaints of melena for 3 days. She denies any BRBPR, but states she became worried about colon cancer as her brother was diagnosed with colon cancer at age 69 and from it. Baseline Hgb 10-11. On admission Hgb 10.1 and today Hgb 10.3 with MCV 96.9. Fecal occult blood test positive. She denies fever, chills, chest pain, shortness of breath, nausea, vomiting, hematemesis, hematochezia. She denies any further episodes of melena. Procedures: Colonoscopy 09/09/2017 Dr. Reyna: Two diminutive tubular adenoma, diverticulosis. Colonoscopy 08/10/2011 Dr. Reyna: One sessile adenomatous polyp. NSAIDs: ASA Anticoagulation: None Past Med Surg Social Fam HX - Past Medical History Medical history: arthritis, asthma, COPD, GERD, seizures, TIA Additional medical history: epilepsy Psychiatric history: anxiety, depression - Past Surgical History Surgical History: appendectomy, cholecystectomy, hysterectomy, knee replacement, other Additional surgical history: tonsils - skull surgery for deformity as a child -. coiling for brain aneurysm 2009 - Social History Smoking Status: Never smoker Smokeless Tobacco Status: No Alcohol use: none Drug use: none - Family History Mother Adopted: No Living Status: Hx Family Cardiac Disorders: Yes (htn) Hx Family Respiratory Disorders: No Hx Family Cancer: Yes (breast cancer) Hx Family GI Disorders: No Hx Family Endocrine Disorder: No Hx Family Neuromuscular Disorders: No Hx Family Neurologic Disorders: No Hx Family HEENT Disorders: No Hx Family Autoimmune Disorders: No - Gastrointestinal Gastrointestinal: Present: as per HPI - Constitutional Constitutional: as per HPI - EENT Eyes: as per HPI Ears: Present: as per HPI Nose, mouth and throat: Present: as per HPI - Cardiovascular Cardiovascular ROS: Present: as per HPI - Respiratory Respiratory IM: Present: as per HPI - Genitourinary Genitourinary: Absent: change in color, Urinary frequency - Neurological ROS Neurological GI: Present: as per HPI - Hematologic/Lymphatic Hematologic/Lymphatic pediatric: Present: as per HPI - Musculoskeletal Musculoskeletal ROS GI: Present: as per HPI - Integumentary Integumentary GI: Present: as per HPI - Psychiatric ROS Psychiatric GI: Present: as per HPI - Endocrine Endocrine IM: Present: as per HPI - Constitutional Vitals: Temp Pulse Resp BP Pulse Ox 98 F 73 16 119/83 98 08/15/18 09:53 08/15/18 09:53 08/15/18 09:53 08/15/18 09:53 08/15/18 09:53 General appearance: Present: cooperative, A&O X 3, no acute distress, answers questions appropriately - Head Head exam: Present: atraumatic, normocephalic - Eye Eye exam: Present: normal appearance, sclera anicteric - ENT ENT exam: Present: mucous membranes dry - Neck Neck exam general surgery: Present: normal inspection, trachea midline - Respiratory Respiratory exam: Present: decreased breath sounds, CTAB. Absent: rales, rhonchi - Cardiovascular Cardiovascular exam: Present: RRR, +S1, +S2 - GI/Abdominal GI/Abdominal exam: Present: soft, tenderness (RLQ), no peritoneal signs. Absent: distended, firm, guarding - Rectal Rectal exam: Present: deferred - Extremities Exam Extremities exam: Present: warm - Neurological Exam Neurological exam: Present: no focal deficits - Psychiatric Psychiatric exam: Present: normal affect, normal mood - Skin Skin exam: Present: dry, intact, normal color, warm Results - Labs CBC & Chem 7: 08/15/18 01:53 08/14/18 12:23 - ABG ABG results: PT/INR, D-dimer PT 11.1 Seconds (9.4-12.1) 08/14/18 12:23 Consult Discharge Plan - Plan Referrals: Maryann Saba, [employer]IAN [Primary Care Provider] -
[2018-08-15] MEDS ORDERED: SODIUM CHLORIDE/NAHCO3/KCL/PEG 4,000 ML SOLN.RECON PO ONE (17:00)
[2018-08-15] MEDS: Latanoprost 2.5 ML BOTTLE BOTH EYES SCH (20:47)
[2018-08-15] MEDS: Primidone 50 MG TABLET PO SCH (20:48)
[2018-08-15] MEDS ORDERED: *HR* Promethazine 25 MG/ML VIAL IVP PRN (22:47)
[2018-08-16] MEDS: Pantoprazole 40 MG VIAL IVP SCH (06:08)
[2018-08-16 09:10] LABS: Basophils % 0.7 %; Eosinophils # 0.2 K/mcL (0.0-0.6); Eosinophils % 3.1 %; Hematocrit 33.6 % (35.3-44.9); Hemoglobin 10.4 g/dL (11.5-15.4); Immature Granulocytes % 0.2 % (0-4); Lymphocytes # 1.2 K/mcL (0.6-4.6); Mean Corpuscular Hemoglobin 29.5 pg (28.0-33.3); Mean Corpuscular Volume 95.2 fL (83.0-100.0); Mean Platelet Volume 9.6 fL (9.4-12.4); Monocytes # 0.4 K/mcL (0.0-1.3); Monocytes % 6.9 %; Neutrophils # 3.7 K/mcL (1.6-8.9); Platelet Count 259 K/mcL (140-400); Red Blood Count 3.53 M/mcL (3.82-4.97); Red Cell Distribution Width 15.4 % (11.5-14.5); Segmented Neutrophils % 68.1 %
[2018-08-16] MEDS: Topiramate 100 MG TABLET PO SCH ×2 (09:18)
[2018-08-16] MEDS: ARIPiprazole 2 MG TABLET PO SCH (09:18)
[2018-08-16] MEDS: lamoTRIgine 100 MG TABLET PO SCH (09:18)
[2018-08-16 09:32] LABS: BUN/Creatinine Ratio 7 (6-26); Blood Urea Nitrogen 7 mg/dL (8-23); Calcium 8.8 mg/dL (8.6-10.3); Carbon Dioxide 22 mEq/L (23-29); Chloride 108 mEq/L (98-107); Glucose 95 mg/dL (70-105); Osmolality,Calculated 282 (280-300); Potassium 3.5 mEq/L (3.5-5.1); Sodium 137 mEq/L (136-145); eGFR For Non-African Americans 55 (> 60)
--- NOTE | 2018-08-16 10:24 | Anesthesia Evaluation PreOp ---
Date of Encounter: 08/16/18 Time of Encounter: 10:30 - Past History Planned Operation: Double Endo Cardiac History: Denies any Significant Hx Pulmonary History: Asthma, COPD PASTRY WRAPPER History: Seizures, TIA Other Medical History: Other (Obesity Arthritis) Anesthesia History: No Prior Anesthetic Complications : No Alcohol Use: none Drug use: none Medications and Allergies Cyclosporine [Restasis] 1 drop OP BID 10/04/15 [History] Topiramate [Topamax] 200 mg PO BID 03/06/16 [History] Citalopram Hydrobromide [Celexa] 40 mg PO DAILY 08/14/16 [History] Pantoprazole Sodium [Protonix] 40 mg PO BID 08/14/16 [History] Atorvastatin [Lipitor] 40 mg PO HS #30 tablet 04/15/18 [Rx] ARIPiprazole [Abilify] 2 mg PO DAILY 08/02/18 [History] Benztropine [Cogentin] 0.5 mg PO BID 08/02/18 [History] Furosemide [Lasix] 20 mg PO DAILY 08/02/18 [History] Latanoprost [Xalatan] 1 drop BOTH EYES HS 08/02/18 [History] Primidone [Mysoline] 50 mg PO DAILY 08/02/18 [History] Cyanocobalamin (B-12) [Vitamin B12] 1,000 mcg PO DAILY 30 Days #30 tablet 08/04/18 [Rx] Aspirin [Adult Aspirin Regimen] 81 mg PO DAILY 08/14/18 [History] Ferrous Sulfate 325 mg PO DAILY 08/14/18 [History] Topiramate [Topamax] 100 mg PO BID 08/14/18 [History] lamoTRIgine [Lamictal] 200 mg PO BID 08/14/18 [History] Allergy/AdvReac Type Severity Reaction Status Date / Time diazepam [From Valium] Allergy See Verified 08/14/18 12:03 Comments doxycycline Allergy See Verified 08/14/18 12:03 Comments hydrocodone [From Vicodin] Allergy Hives Verified 08/14/18 12:03 ibuprofen Allergy Hives Verified 08/14/18 12:03 sulfamethoxazole Allergy See Verified 08/14/18 12:03 [From Bactrim] Comments trimethoprim [From Bactrim] Allergy See Verified 08/14/18 12:03 Comments dextromethorphan AdvReac Severe Seizure Verified 08/14/18 12:03 doxylamine AdvReac Severe Seizure Verified 08/14/18 12:03 hydrocortisone AdvReac Severe Seizure Verified 08/14/18 12:03 [From Hydrocortone] oxycodone [Oxycodone] AdvReac Severe Seizure Verified 08/14/18 12:03 pseudoephedrine AdvReac Severe Seizure Verified 08/14/18 12:03 acetaminophen [From NyQuil] AdvReac See Verified 08/14/18 12:03 Comments diphenhydramine AdvReac Nausea Verified 08/14/18 12:03 [From Benadryl] - Meds/Allergy Pre-op Review Medications Reviewed: Yes Allergies Reviewed: Yes Beta Blockers on Current Med List: No Anesthesia Results - Labs 08/16/18 08:49 08/16/18 08:49 - Imaging Additional studies: ECHO 2019 Nl EF, no pulm htn, no valvular dysfunction Anesthesia Exam O2 Sat O2 Sat by Pulse Oximetry 97 O2 Sat by Pulse Oximetry 97 O2 Sat by Pulse Oximetry 97 O2 Sat by Pulse Oximetry 97 O2 Sat by Pulse Oximetry 99 Vital Signs Temp Pulse Resp BP Pulse Ox 98.4 F 87 16 124/83 96 08/14/18 12:01 08/14/18 12:01 08/14/18 12:01 08/14/18 12:01 08/14/18 12:01 Height: 5'7 Weight: 235 lbs NPO (# of Hours): MN Pain Scale: 0 - HEENT Pupil (Motor): Pupils equal, EOMI Mallampati: II Oral Opening: Greater than 3 - PASTRY WRAPPER LOC: Oriented PASTRY WRAPPER Motor: Normal RUE, Normal LUE, Normal RLE, Normal LLE, Normal Face PASTRY WRAPPER Sensory: Normal: RUE, LUE, RLE, LLE, Face - Cardiac Rhythm: Regular Murmur: None JVD: No Carotid Bruit: No - Pulmonary Breath Sounds: bilateral Clear Respiratory Effort: Symmetrical Anesthesia Assess/Plan ASA Score: 3 (Epilepsy COPD Asthma) Level of consciousness: Cooperative, Oriented Anesthetic Plan: MAC Autologous Blood: No Monitoring Plan: Standard Monitors Recovery Plan: Other (Discussed MAC, agrees to proceed)
[2018-08-16 11:43] VITALS: BP 100/65
--- NOTE | 2018-08-16 14:27 | Discharge Summary ---
- NOTES TO OUTPATIENT PROVIDER Notes to Outpatient Provider: Follow-up with PCP-3-5 days. Follow-up with Dr. Gage office in 3 weeks-plan for capsule endoscopy. Repeat colonoscopy in 10 years for screening purposes Orders not resulted at time of discharge: Pending orders 08/14/18 12:04 ECG 12 lead ECG [ECG] Stat 08/17/18 04:00 Complete Blood Count [HEME] AM 0400 Date of Encounter: 08/16/18 Time of Encounter: 14:23 - Discharge Diagnosis (1) Melena Priority: Primary Status: Acute Assessment and Plan: No active bleeding during his stay. Hemoglobin has been a stable. Upper GI endoscopy-grade a reflux esophagitis, a small hiatal hernia, nonobstructing schatzki ring, gastritis, gastroparesis-recommended Protonix by mouth daily Colonoscopy with finding of diverticulosis and sigmoid, descending colon at splenic flexure and the transfer:. Nonbleeding internal hemorrhoids-recommended a screening colonoscopy in 10 years Patient tolerating advanced diet (2) TIA (transient ischemic attack) Priority: Secondary Status: Suspected Assessment and Plan: Continue home statin. Resume aspirin (3) Depression Priority: Secondary Status: Chronic Assessment and Plan: Continue home medications Qualifiers: Depression Type: unspecified Qualified Code(s): F32.9 - Major depressive disorder, single episode, unspecified (4) COPD (chronic obstructive pulmonary disease) Priority: Secondary Status: Chronic Assessment and Plan: Not in exacerbation. As needed bronchodilators. Qualifiers: Emphysema type: unspecified Qualified Code(s): J43.9 - Emphysema, unspecified (5) Seizure Priority: Secondary Status: Chronic Assessment and Plan: Continue home antiseizure medications (6) GERD (gastroesophageal reflux disease) Priority: Primary Status: Acute Assessment and Plan: continue PPI Qualifiers: Esophagitis presence: esophagitis presence not specified Qualified Code(s): K21.9 - Gastro-esophageal reflux disease without esophagitis (7) Diastolic CHF Priority: Secondary Status: Acute Assessment and Plan: Not in exacerbation Continue home Lasix Patient has low normal blood pressures. Further medical management as per PCP Qualifiers: Heart failure chronicity: chronic Qualified Code(s): I50.32 - Chronic diastolic (congestive) heart failure Hospital course: Ms. Mccarthy is a 67 year old female patient got admitted with complaint of melena. GI workup was done including upper and lower endoscopy with no active bleeding. Hemoglobin has been stable. Please see detail in diagnosis section of discharge summary. At the time of discharge patient clinically hemodynamically stable, tolerating oral diet, a stable hemoglobin. Discharge discussed with: patient, nurse, organization development consultant - Time Spent with Patient Total time spent providing and/or coordinating discharge services: Time spent: Less than 30 minutes - Discharge Medications Prescriptions: Continued Cyclosporine [Restasis] 1 drop OP BID Topiramate [Topamax] 200 mg PO BID Citalopram Hydrobromide [Celexa] 40 mg PO DAILY Pantoprazole Sodium [Protonix] 40 mg PO BID Atorvastatin [Lipitor] 40 mg PO HS #30 tablet ARIPiprazole [Abilify] 2 mg PO DAILY Benztropine [Cogentin] 0.5 mg PO BID Latanoprost [Xalatan] 1 drop BOTH EYES HS Primidone [Mysoline] 50 mg PO DAILY Furosemide [Lasix] 20 mg PO DAILY Cyanocobalamin (B-12) [Vitamin B12] 1,000 mcg PO DAILY 30 Days #30 tablet Aspirin [Adult Aspirin Regimen] 81 mg PO DAILY lamoTRIgine [Lamictal] 200 mg PO BID Topiramate [Topamax] 100 mg PO BID Ferrous Sulfate 325 mg PO DAILY Home Medications: Cyclosporine [Restasis] 1 drop OP BID 10/04/15 [History] Topiramate [Topamax] 200 mg PO BID 03/06/16 [History] Citalopram Hydrobromide [Celexa] 40 mg PO DAILY 08/14/16 [History] Pantoprazole Sodium [Protonix] 40 mg PO BID 08/14/16 [History] Atorvastatin [Lipitor] 40 mg PO HS #30 tablet 04/15/18 [Rx] ARIPiprazole [Abilify] 2 mg PO DAILY 08/02/18 [History] Benztropine [Cogentin] 0.5 mg PO BID 08/02/18 [History] Furosemide [Lasix] 20 mg PO DAILY 08/02/18 [History] Latanoprost [Xalatan] 1 drop BOTH EYES HS 08/02/18 [History] Primidone [Mysoline] 50 mg PO DAILY 08/02/18 [History] Cyanocobalamin (B-12) [Vitamin B12] 1,000 mcg PO DAILY 30 Days #30 tablet 08/04/18 [Rx] Aspirin [Adult Aspirin Regimen] 81 mg PO DAILY 08/14/18 [History] Ferrous Sulfate 325 mg PO DAILY 08/14/18 [History] Topiramate [Topamax] 100 mg PO BID 08/14/18 [History] lamoTRIgine [Lamictal] 200 mg PO BID 08/14/18 [History] Allergies/Adverse Reactions: Allergy/AdvReac Type Severity Reaction Status Date / Time diazepam [From Valium] Allergy See Verified 08/14/18 12:03 Comments doxycycline Allergy See Verified 08/14/18 12:03 Comments hydrocodone [From Vicodin] Allergy Hives Verified 08/14/18 12:03 ibuprofen Allergy Hives Verified 08/14/18 12:03 sulfamethoxazole Allergy See Verified 08/14/18 12:03 [From Bactrim] Comments trimethoprim [From Bactrim] Allergy See Verified 08/14/18 12:03 Comments dextromethorphan AdvReac Severe Seizure Verified 08/14/18 12:03 doxylamine AdvReac Severe Seizure Verified 08/14/18 12:03 hydrocortisone AdvReac Severe Seizure Verified 08/14/18 12:03 [From Hydrocortone] oxycodone [Oxycodone] AdvReac Severe Seizure Verified 08/14/18 12:03 pseudoephedrine AdvReac Severe Seizure Verified 08/14/18 12:03 acetaminophen [From NyQuil] AdvReac See Verified 08/14/18 12:03 Comments diphenhydramine AdvReac Nausea Verified 08/14/18 12:03 [From Benadryl] Date of admission: 08/14/18 15:57 Primary care physician: Maryann Saba CNP Consults: 08/14/18 17:15 Consult to Gastroenterology [CONS] Routine Consulting Provider: Gastroenterology Meri Reason for Consult: melena Call Completed: Yes - Constitutional Vitals: Temp Pulse Resp BP Pulse Ox 97.9 F 56 14 100/65 98 08/16/18 11:42 08/16/18 11:42 08/16/18 11:42 08/16/18 11:42 08/16/18 11:42 Exam: General appearance: No acute distress Eye exam: EOMI, PERRLA ENT exam: Moist oral mucosa Neck nontender, supple Respiratory exam: Clear to auscultation bilaterally Cardiovascular exam: Regular rate and rhythm, no systolic murmur Abdominal exam: Soft, nontender, nondistended, positive bowel sounds Extremities exam: No calf tenderness, no pedal edema Present: Skin-no rash, warm, dry, intact Neurological exam: Alert, awake, oriented 3, CN II-XII intact, no focal deficits. No facial droop. Normal speech. - Patient Status Disposition: Home, Self-Care Condition: Good Overall status at discharge: patient is progressing back to baseline - Discharge Instructions Follow Up With: Maryann Saba CNP [Primary Care Provider] - Additional Instructions: Follow-up appointments: F/u with Dr. Mata in 3-5 days. Web request has been made for this appointment, and they will contact you when the office reopens on Saturday. Medication List: Carry an up to date list of medications you are taking at all time. We have given you an updated medication list including any new medications that you have been prescribed. Please provide that list to your primary provider Symptoms: If your condition changes or you experience any of the following symptoms, notify your physician immediately: Unusual or worsening pain, fever, persistent nausea and vomiting, bleeding, increase in swelling (especially in your legs), sudden weight gain, extreme dizziness, chest pain, increased drainage or redness from a wound or incision. Go to the emergency department if you experience a problem with breathing. Weights: If you have a history of swelling or shortness of breath, weigh yourself daily and notify your physician if you have a weight gain of two or more pounds in one day or 5 or more pounds in a week. If you experience any of the warning signs for stroke: Sudden numbness or weakness of the face, arm or leg; especially on one side of the body, sudden confusion, trouble speaking or understanding, sudden trouble seeing in one or both eyes, sudden trouble walking, dizziness, loss of balance or coordination, sudden sever headache with no cause; Call 911 or go to the emergency room. Stroke is a medical emergency. Some risk factors for stroke: Age, cigarette smoking, diabetes, excessive alcohol consumption, family history, high blood pressure, overweight, physical inactivity, prior stroke, heart attack, diagnosis of carotid artery stenosis or other artery disease. If you smoke, STOP: Smoking or tobacco use significantly increases your risk of heart and lung disease. Your chance of disease greatly increases if you continue to smoke. For more information, call the [place] tobacco quit line for smoking cessation 9-177-MPUC-NOW ( ) - Diet and Activity Activity: increase activity as tolerated Diet: advance to your usual diet
--- NOTE | 2018-08-16 15:35 | Anesthesia Evaluation Post Op ---
Date of Encounter: 08/16/18 Time of Encounter: 13:00 - Vital Signs Vital Signs: Vital Signs/O2 Sat/Glucose, Most Current Temp Pulse Resp BP Pulse Ox 08/16/18 11:42 97.9 F 56 14 100/65 98 - Lungs Lungs: Clear Ascult./Percussion - Airway Airway: Non-obstructed - Cardiovascular Regular Rate - Mental Status Mental Status: Alert & Oriented, Answers Appropriately - Pain Pain Scale: 0 - Nausea Vomiting Nausea Vomiting: Not Present - Hydration Hydration: Ice chips - Discharge PostOp Status: Transfer Patient to floor
--- NOTE | 2018-08-16 19:05 | Electrocardiograph Report ---
[facility] Test Date: 2018-08-14 Pat Name: Rocio Mccarthy Department: EXAM12 Room: [facility] Gender: F [employer]: : 1950 Requested By: Taras Shah Order Number: [id number] Reading MD: Simone Collins Measurements Intervals [place] Rate: 68 P: -18 KS: 201 QRS: 52 QRSD: 91 T: 62 QT: 418 QTc: 445 Interpretive Statements Sinus rhythm Low voltage, precordial leads Electronically Signed On 08-16-2018 19:03:46 EDT by Simone Collins
== END 2018-08-16 15:10 | disposition home or self-care (01) ==
LOC: 3NENU 11:47 → EMEROOARM 11:47 → 3NENU 17:36
PROVIDERS: ADMIT Internal Medicine Nephrology; ATTEND Internal Medicine Nephrology
PROC: ENDOEBX (2018-08-16 09:25)

== ENCOUNTER 2018-11-02 08:16 | Observation (INO) ==
[2018-11-02] MEDS ORDERED: Aspirin 81 MG TAB.CHEW PO ONE (08:30)
[2018-11-02 08:49] LABS: Hematocrit 35.3 % (35.3-44.9); Hemoglobin 10.8 g/dL (11.5-15.4); Mean Corpuscular HGB Conc 30.6 g/dL (31.6-35.5); Mean Corpuscular Hemoglobin 29.5 pg (28.0-33.3); Mean Corpuscular Volume 96.4 fL (83.0-100.0); Mean Platelet Volume 9.4 fL (9.4-12.4); Platelet Count 204 K/mcL (140-400); Red Blood Count 3.66 M/mcL (3.82-4.97); Red Cell Distribution Width 14.6 % (11.5-14.5); White Blood Count 4.9 K/mcL (4.3-11.1)
[2018-11-02 08:58] LABS: Prothrombin Time 11.4 Seconds (9.4-12.1)
[2018-11-02 09:00] LABS: Activated Partial Thrombo Time 33.4 Seconds (26.0-36.0)
[2018-11-02 09:06] LABS: BUN/Creatinine Ratio 9 (6-26); Blood Urea Nitrogen 9 mg/dL (8-23); Calcium 8.5 mg/dL (8.6-10.3); Carbon Dioxide 20 mEq/L (23-29); Chloride 107 mEq/L (98-107); Glucose 98 mg/dL (70-105); Osmolality,Calculated 277 (280-300); Potassium 3.9 mEq/L (3.5-5.1); Sodium 134 mEq/L (136-145); eGFR For African Americans > 60 (> 60); eGFR For Non-African Americans 54 (> 60)
[2018-11-02 09:07] LABS: Troponin I < 0.03 ng/mL (< 0.04)
[2018-11-02] MEDS ORDERED: Isovue-370 500 ML BOTTLE IVP ONE (09:57)
[2018-11-02] MEDS ORDERED: MOM Conc 10 ML UD.LIQ PO PRN (15:41)
[2018-11-02] MEDS ORDERED: Acetaminophen 325 MG TABLET PO PRN (15:41)
[2018-11-02] MEDS ORDERED: *HR* Promethazine 25 MG/ML VIAL IVP PRN (15:41)
[2018-11-02] MEDS ORDERED: Naloxone 0.4 MG/ML INJ IVP PRN (15:41)
[2018-11-02] MEDS ORDERED: Ondansetron 4 MG/2 ML VIAL IVP PRN (15:41)
[2018-11-02] MEDS ORDERED: Mag Hydrox/Al Hydrox/Simeth 30 ML UDC PO PRN (15:41)
[2018-11-02] MEDS: *HR* Heparin 5,000 UNIT/ML VIAL SQ SCH (17:57)
[2018-11-03] MEDS: *HR* Heparin 5,000 UNIT/ML VIAL SQ SCH ×2 (04:55→18:28)
[2018-11-03 06:20] LABS: Albumin 3.7 g/dL (3.5-5.7); Albumin/Globulin Ratio 1.8 (1.1-2.2); Bilirubin,Total 0.3 mg/dL (0.3-1.0); Calcium 8.9 mg/dL (8.6-10.3); Chol/HDL Ratio 3.4 (0-4.9); Globulin 2.1 g/dL (2.4-3.5); Magnesium 2.1 mg/dL (1.6-2.6); Phosphorous 3.5 mg/dL (2.7-4.5); Potassium 4.1 mEq/L (3.5-5.1); Total Protein 5.8 g/dL (6.4-8.9)
[2018-11-03 06:32] LABS: Hematocrit 34.7 % (35.3-44.9); Hemoglobin 10.4 g/dL (11.5-15.4); Mean Corpuscular Hemoglobin 29.8 pg (28.0-33.3); Mean Corpuscular Volume 99.4 fL (83.0-100.0); Mean Platelet Volume 9.9 fL (9.4-12.4); Platelet Count 213 K/mcL (140-400); Red Blood Count 3.49 M/mcL (3.82-4.97); Red Cell Distribution Width 15.1 % (11.5-14.5); White Blood Count 4.7 K/mcL (4.3-11.1)
[2018-11-03] MEDS ORDERED: Cyanocobalamin (B-12) 1,000 MCG/ML VIAL SQ ONE (09:41)
[2018-11-03] MEDS ORDERED: lamoTRIgine 100 MG TABLET PO STA (10:50)
[2018-11-03] MEDS ORDERED: Topiramate 100 MG TABLET PO STA (10:51)
[2018-11-03] MEDS ORDERED: *HR* LORazepam 0.5 MG TABLET PO PRN (18:31)
[2018-11-04] MEDS: *HR* Heparin 5,000 UNIT/ML VIAL SQ SCH (05:15)
[2018-11-04] MEDS ORDERED: Topiramate 100 MG TABLET PO SCH (09:00)
[2018-11-04] MEDS ORDERED: Cyanocobalamin (B-12) 1,000 MCG/ML VIAL SQ SCH (09:00)
[2018-11-04] MEDS ORDERED: Primidone 50 MG TABLET PO SCH (09:00)
[2018-11-04] MEDS ORDERED: TOPIRAMATE 200 MG PO SCH (09:00)
[2018-11-04] MEDS ORDERED: Aspirin Enteric Coated 81 MG Tablet PO SCH (09:00)
[2018-11-04] MEDS ORDERED: ARIPiprazole 2 MG TABLET PO SCH (09:00)
[2018-11-04] MEDS ORDERED: NON-FORMULARY MEDICATION 1 EACH EACH (Calcium Carbonate/Vitamin D3 [Calcium 600 + Vit D Ta PO SCH (09:00)
[2018-11-04] MEDS ORDERED: lamoTRIgine 100 MG TABLET PO SCH (09:00)
[2018-11-04] MEDS ORDERED: Cholecalciferol (D-3) 1,000 UNIT (25MCG) TABLET PO SCH (09:30)
[2018-11-04 11:03] VITALS: BP 122/79
== END 2018-11-04 15:36 | disposition home health service (06) ==
LOC: 3BNU 08:16 → EMEROOARM 08:16 → 3BNU 13:42
PROVIDERS: ADMIT Internal Medicine; ATTEND Internal Medicine

== ENCOUNTER 2019-01-18 13:48 | Observation (INO) ==
[2019-01-18 14:15] LABS: Basophils # 0.1 K/mcL (0.0-0.2); Basophils % 0.8 %; Eosinophils # 0.2 K/mcL (0.0-0.6); Eosinophils % 3.3 %; Hematocrit 36.4 % (35.3-44.9); Hemoglobin 11.9 g/dL (11.5-15.4); Immature Granulocytes % 0.3 % (0-4); Lymphocytes # 1.2 K/mcL (0.6-4.6); Lymphocytes % 18.5 %; Mean Corpuscular HGB Conc 32.7 g/dL (31.6-35.5); Mean Corpuscular Hemoglobin 31.3 pg (28.0-33.3); Mean Corpuscular Volume 95.8 fL (83.0-100.0); Mean Platelet Volume 10.3 fL (9.4-12.4); Monocytes # 0.5 K/mcL (0.0-1.3); Monocytes % 7.6 %; Neutrophils # 4.5 K/mcL (1.6-8.9); Platelet Count 262 K/mcL (140-400); Red Cell Distribution Width 13.6 % (11.5-14.5); Segmented Neutrophils % 69.5 %; White Blood Count 6.4 K/mcL (4.3-11.1)
[2019-01-18 15:12] LABS: Bilirubin,Urine Negative (Negative); Blood,Urine Trace (Negative); Clarity,Urine Clear (Clear); Color,Urine Yellow (Yellow); Glucose,Urine (UA) Normal (Normal); Ketones,Urine Negative (Negative); Leukocyte Esterase,Urine Trace (Negative); Nitrite,Urine Negative (Negative); Protein,Urine Negative (Neg-Trace); Specific Gravity,Urine 1.005 (1.010-1.025); Urobilinogen,Urine Normal (Normal)
[2019-01-18 15:13] LABS: Bacteria,Urine None Seen per hpf (None-Few); Hyaline Casts,Urine None Seen per lpf (None-Few); RBC,Urine 30-50 per hpf (0-3); Squamous Epithelial Cell,Urine Few per lpf (None-Few); WBC,Urine 0-3 per hpf (0-3)
[2019-01-18 15:54] LABS: Alanine Aminotransferase 4 Units/L (7-52); Albumin 3.9 g/dL (3.5-5.7); Albumin/Globulin Ratio 1.7 (1.1-2.2); Alkaline Phosphatase 125 Units/L (34-104); Aspartate Amino Transferase 10 Units/L (13-39); BUN/Creatinine Ratio 8 (6-26); Bilirubin,Indirect 0.2 mg/dL (0.0-1.0); Bilirubin,Total 0.2 mg/dL (0.3-1.0); Blood Urea Nitrogen 9 mg/dL (8-23); Calcium 8.5 mg/dL (8.6-10.3); Carbon Dioxide 21 mEq/L (23-29); Chloride 103 mEq/L (98-107); Globulin 2.3 g/dL (2.4-3.5); Glucose 102 mg/dL (70-105); Lipase 42 Units/L (11-82); Osmolality,Calculated 273 (280-300); Potassium 3.3 mEq/L (3.5-5.1); Sodium 132 mEq/L (136-145); Total Protein 6.2 g/dL (6.4-8.9); eGFR For African Americans > 60 (> 60); eGFR For Non-African Americans 52 (> 60)
[2019-01-18] MEDS ORDERED: Nitroglycerin 0.4 MG TAB.SUBL SL PRN (17:29)
[2019-01-18] MEDS: Primidone 50 MG TABLET PO SCH (19:46)
[2019-01-18] MEDS: lamoTRIgine 100 MG TABLET PO SCH (19:46)
[2019-01-18] MEDS: Topiramate 100 MG TABLET PO SCH (19:47)
[2019-01-18] MEDS ORDERED: TOPIRAMATE 200 MG PO SCH (21:00)
[2019-01-19 02:12] LABS: Basophils % 0.8 %; Eosinophils # 0.3 K/mcL (0.0-0.6); Eosinophils % 5.3 %; Hematocrit 35.4 % (35.3-44.9); Hemoglobin 11.3 g/dL (11.5-15.4); Immature Granulocytes % 0.2 % (0-4); Lymphocytes # 1.3 K/mcL (0.6-4.6); Lymphocytes % 24.6 %; Mean Corpuscular HGB Conc 31.9 g/dL (31.6-35.5); Mean Corpuscular Hemoglobin 30.8 pg (28.0-33.3); Mean Corpuscular Volume 96.5 fL (83.0-100.0); Mean Platelet Volume 9.5 fL (9.4-12.4); Monocytes # 0.5 K/mcL (0.0-1.3); Monocytes % 9.4 %; Neutrophils # 3.2 K/mcL (1.6-8.9); Platelet Count 221 K/mcL (140-400); Red Blood Count 3.67 M/mcL (3.82-4.97); Red Cell Distribution Width 13.8 % (11.5-14.5); Segmented Neutrophils % 59.7 %; White Blood Count 5.3 K/mcL (4.3-11.1)
[2019-01-19 02:15] LABS: Prothrombin Time 11.6 Seconds (9.4-12.1)
[2019-01-19 02:34] LABS: Alanine Aminotransferase 4 Units/L (7-52); Albumin 3.7 g/dL (3.5-5.7); Albumin/Globulin Ratio 1.7 (1.1-2.2); Alkaline Phosphatase 116 Units/L (34-104); Aspartate Amino Transferase 8 Units/L (13-39); BUN/Creatinine Ratio 8 (6-26); Bilirubin,Total 0.3 mg/dL (0.3-1.0); Blood Urea Nitrogen 8 mg/dL (8-23); Calcium 8.5 mg/dL (8.6-10.3); Carbon Dioxide 24 mEq/L (23-29); Chloride 107 mEq/L (98-107); Globulin 2.2 g/dL (2.4-3.5); Glucose 103 mg/dL (70-105); Magnesium 2.1 mg/dL (1.6-2.6); Osmolality,Calculated 279 (280-300); Potassium 4.2 mEq/L (3.5-5.1); Sodium 135 mEq/L (136-145); Total Protein 5.9 g/dL (6.4-8.9); eGFR For African Americans > 60 (> 60); eGFR For Non-African Americans 55 (> 60)
[2019-01-19] MEDS ORDERED: Regadenoson 0.4 MG/5 ML SYRINGE IVP ONE (06:31)
[2019-01-19] MEDS: Aspirin Enteric Coated 81 MG Tablet PO SCH (12:22)
[2019-01-19] MEDS: lamoTRIgine 100 MG TABLET PO SCH ×2 (12:22→21:19)
[2019-01-19] MEDS: ARIPiprazole 2 MG TABLET PO SCH (12:22)
[2019-01-19] MEDS: Topiramate 100 MG TABLET PO SCH ×2 (12:22→21:19)
[2019-01-19] MEDS: Primidone 50 MG TABLET PO SCH ×2 (12:22→21:20)
[2019-01-19] MEDS: Cyanocobalamin (B-12) 1,000 MCG TABLET PO SCH (12:22)
[2019-01-19] MEDS: Cholecalciferol (D-3) 1,000 UNIT (25MCG) TABLET PO SCH (12:23)
[2019-01-19] MEDS ORDERED: Ipratropium/Albuterol Neb 3 ML IH PRN (16:32)
[2019-01-19] MEDS: *HR* Heparin 5,000 UNIT/ML VIAL SQ SCH (21:20)
[2019-01-20] MEDS: *HR* Heparin 5,000 UNIT/ML VIAL SQ SCH ×2 (06:00→14:13)
[2019-01-20] MEDS: Cholecalciferol (D-3) 1,000 UNIT (25MCG) TABLET PO SCH (08:24)
[2019-01-20] MEDS: Aspirin Enteric Coated 81 MG Tablet PO SCH (08:24)
[2019-01-20] MEDS: Primidone 50 MG TABLET PO SCH (08:24)
[2019-01-20] MEDS: lamoTRIgine 100 MG TABLET PO SCH (08:24)
[2019-01-20] MEDS: Cyanocobalamin (B-12) 1,000 MCG TABLET PO SCH (08:24)
[2019-01-20] MEDS: Topiramate 100 MG TABLET PO SCH (08:24)
[2019-01-20] MEDS: ARIPiprazole 2 MG TABLET PO SCH (11:49)
[2019-01-20] MEDS ORDERED: Morphine Sulfate 2 MG/ML SYRINGE SQ ONE (12:39)
[2019-01-20] MEDS ORDERED: Morphine Sulfate 2 MG/ML SYRINGE IVP ONE (12:56)
[2019-01-20 16:04] VITALS: BP 126/78
== END 2019-01-20 18:45 | disposition home or self-care (01) ==
LOC: EMEROOARM 13:48 → 3BNU 13:48 → SUATTDRO 16:47 → 3BNU 17:38
PROVIDERS: ADMIT Student in an Organized Health Care Education/Training Program; ATTEND Family Medicine

== ENCOUNTER 2019-07-08 09:30 | Observation (INO) ==
[2019-07-08] MEDS ORDERED: Albuterol 2.5 MG/3 ML NEBULIZER IH ONE (09:57)
[2019-07-08 10:13] LABS: Basophils % 0.7 %; Eosinophils # 0.1 K/mcL (0.0-0.6); Eosinophils % 0.9 %; Hematocrit 38.9 % (35.3-44.9); Hemoglobin 12.2 g/dL (11.5-15.4); Lymphocytes # 0.9 K/mcL (0.6-4.6); Lymphocytes % 15.9 %; Mean Corpuscular HGB Conc 31.4 g/dL (31.6-35.5); Mean Corpuscular Hemoglobin 30.7 pg (28.0-33.3); Mean Corpuscular Volume 97.7 fL (83.0-100.0); Mean Platelet Volume 9.9 fL (9.4-12.4); Monocytes # 0.4 K/mcL (0.0-1.3); Monocytes % 6.4 %; Neutrophils # 4.4 K/mcL (1.6-8.9); Platelet Count 219 K/mcL (140-400); Red Blood Count 3.98 M/mcL (3.82-4.97); Red Cell Distribution Width 14.2 % (11.5-14.5); Segmented Neutrophils % 76.1 %; White Blood Count 5.8 K/mcL (4.3-11.1)
[2019-07-08 10:23] LABS: Prothrombin Time 11.7 Seconds (9.4-12.1)
[2019-07-08 10:24] LABS: Activated Partial Thrombo Time 32.3 Seconds (26.0-36.0)
[2019-07-08 11:09] LABS: Bilirubin,Urine Negative (Negative); Blood,Urine Trace (Negative); Clarity,Urine Clear (Clear); Color,Urine Yellow (Yellow); Glucose,Urine (UA) Normal (Normal); Ketones,Urine Negative (Negative); Leukocyte Esterase,Urine Negative (Negative); Nitrite,Urine Negative (Negative); Protein,Urine Negative (Neg-Trace); Specific Gravity,Urine 1.011 (1.010-1.025); Urobilinogen,Urine Normal (Normal)
[2019-07-08 11:11] LABS: Bacteria,Urine None Seen per hpf (None-Few); Hyaline Casts,Urine None Seen per lpf (None-Few); RBC,Urine 0-3 per hpf (0-3); Squamous Epithelial Cell,Urine Few per lpf (None-Few); WBC,Urine 0-3 per hpf (0-3)
[2019-07-08 11:28] LABS: Alanine Aminotransferase 8 Units/L (7-52); Albumin 4.1 g/dL (3.5-5.7); Albumin/Globulin Ratio 1.7 (1.1-2.2); Alkaline Phosphatase 128 Units/L (34-104); Aspartate Amino Transferase 12 Units/L (13-39); BUN/Creatinine Ratio 8 (6-26); Bilirubin,Direct 0.1 mg/dL (0.0-0.2); Bilirubin,Indirect 0.3 mg/dL (0.0-1.0); Bilirubin,Total 0.4 mg/dL (0.3-1.0); Blood Urea Nitrogen 8 mg/dL (8-23); C-Reactive Protein 9 mg/L (Less than 10); Calcium 9.2 mg/dL (8.6-10.3); Carbon Dioxide 19 mEq/L (23-29); Chloride 105 mEq/L (98-107); Globulin 2.4 g/dL (2.4-3.5); Glucose 106 mg/dL (70-105); Lactate Dehydrogenase 126 Units/L (140-271); Magnesium 2.1 mg/dL (1.6-2.6); Osmolality,Calculated 271 (280-300); Phosphorous 2.9 mg/dL (2.7-4.5); Potassium 3.6 mEq/L (3.5-5.1); Sodium 131 mEq/L (136-145); Total Protein 6.5 g/dL (6.4-8.9); Troponin I < 0.03 ng/mL (< 0.04); eGFR For African Americans > 60 (> 60); eGFR For Non-African Americans 53 (> 60)
[2019-07-08 11:46] LABS: Ferritin 37 ng/mL (10-120)
[2019-07-08] MEDS ORDERED: Naloxone 0.4 MG/ML INJ IVP PRN (14:30)
[2019-07-08] MEDS ORDERED: Ondansetron 4 MG/2 ML VIAL IVP PRN (14:30)
[2019-07-08] MEDS ORDERED: Azithromycin 500 MG in 0.9 % Sodium Chloride 250 ML IVPB ONE (14:35)
[2019-07-08] MEDS ORDERED: Nitroglycerin 0.4 MG TAB.SUBL SL PRN (15:09)
[2019-07-08] MEDS: Furosemide 20 MG/2 ML VIAL IVP SCH ×2 (15:52→20:13)
[2019-07-08] MEDS ORDERED: Albuterol 2.5 MG/3 ML NEBULIZER IH SCH (16:00)
[2019-07-08] MEDS: *HR* Heparin 5,000 UNIT/ML VIAL SQ SCH (18:21)
[2019-07-08] MEDS: Topiramate 100 MG TABLET PO SCH (20:14)
[2019-07-08] MEDS: Primidone 50 MG TABLET PO SCH (20:14)
[2019-07-08] MEDS: lamoTRIgine 100 MG TABLET PO SCH (20:14)
[2019-07-08] MEDS ORDERED: TOPIRAMATE 200 MG PO SCH (21:00)
[2019-07-08] MEDS ORDERED: lamoTRIgine 100 MG TABLET PO SCH (21:00)
[2019-07-08] MEDS ORDERED: Topiramate 100 MG TABLET PO SCH (21:00)
[2019-07-08] MEDS ORDERED: Aspirin Enteric Coated 81 MG Tablet PO ONE (21:24)
[2019-07-08] MEDS: Benzonatate 100 MG CAPSULE PO SCH (21:35)
[2019-07-09 04:47] LABS: Basophils % 0.5 %; Eosinophils # 0.1 K/mcL (0.0-0.6); Eosinophils % 2.2 %; Hematocrit 42.5 % (35.3-44.9); Hemoglobin 13.2 g/dL (11.5-15.4); Immature Granulocytes % 0.2 % (0-4); Lymphocytes # 1.5 K/mcL (0.6-4.6); Lymphocytes % 25.3 %; Mean Corpuscular HGB Conc 31.1 g/dL (31.6-35.5); Mean Corpuscular Hemoglobin 30.5 pg (28.0-33.3); Mean Corpuscular Volume 98.2 fL (83.0-100.0); Mean Platelet Volume 9.6 fL (9.4-12.4); Monocytes # 0.5 K/mcL (0.0-1.3); Monocytes % 7.5 %; Neutrophils # 3.9 K/mcL (1.6-8.9); Platelet Count 240 K/mcL (140-400); Red Blood Count 4.33 M/mcL (3.82-4.97); Red Cell Distribution Width 14.3 % (11.5-14.5); Segmented Neutrophils % 64.3 %
[2019-07-09] MEDS: *HR* Heparin 5,000 UNIT/ML VIAL SQ SCH (04:52)
[2019-07-09 05:02] LABS: Calcium 9.3 mg/dL (8.6-10.3); Magnesium 2.1 mg/dL (1.6-2.6); Phosphorous 3.9 mg/dL (2.7-4.5); Potassium 3.1 mEq/L (3.5-5.1)
[2019-07-09] MEDS: Primidone 50 MG TABLET PO SCH (07:49)
[2019-07-09] MEDS: Topiramate 100 MG TABLET PO SCH (07:50)
[2019-07-09] MEDS: Benzonatate 100 MG CAPSULE PO SCH (07:51)
[2019-07-09] MEDS: lamoTRIgine 100 MG TABLET PO SCH (07:52)
[2019-07-09] MEDS: Furosemide 20 MG/2 ML VIAL IVP SCH (07:52)
[2019-07-09] MEDS ORDERED: Cyanocobalamin (B-12) 1,000 MCG TABLET PO SCH (09:00)
[2019-07-09] MEDS ORDERED: Azithromycin 250 MG TABLET PO SCH (09:00)
[2019-07-09] MEDS ORDERED: ARIPiprazole 2 MG TABLET PO SCH ×2 (09:00)
[2019-07-09] MEDS ORDERED: Aspirin Enteric Coated 81 MG Tablet PO SCH ×2 (09:00)
[2019-07-09] MEDS ORDERED: Cholecalciferol (D-3) 1,000 UNIT (25MCG) TABLET PO SCH (09:00)
[2019-07-09 09:48] VITALS: BP 127/66
[2019-07-09] MEDS ORDERED: Potassium Chloride Elixir 20 MEQ/15 ML UDC PO ONE (10:24)
[2019-07-09] MEDS ORDERED: *HR* Promethazine 25 MG/ML VIAL IVP PRN (10:25)
[2019-07-09] MEDS ORDERED: Ketorolac 30 MG/ML VIAL IVP ONE (10:25)
[2019-07-10] MEDS ORDERED: *HR* Enoxaparin 40 MG/0.4 ML SYRINGE SQ SCH (10:24)
== END 2019-07-09 12:18 | disposition home or self-care (01) ==
LOC: EMEROOARM 09:30 → 2NENU 09:30
PROVIDERS: ADMIT Internal Medicine; ATTEND Internal Medicine

== ENCOUNTER 2019-07-27 09:59 | Observation (INO) ==
[2019-07-27] MEDS ORDERED: Isovue-370 500 ML BOTTLE IVP ONE (10:31)
[2019-07-27 11:07] LABS: Basophils % 0.5 %; Eosinophils # 0.1 K/mcL (0.0-0.6); Eosinophils % 0.8 %; Hematocrit 36.1 % (35.3-44.9); Hemoglobin 11.2 g/dL (11.5-15.4); Immature Granulocytes % 0.3 % (0-4); Lymphocytes # 0.8 K/mcL (0.6-4.6); Lymphocytes % 13.2 %; Mean Corpuscular Hemoglobin 30.8 pg (28.0-33.3); Mean Corpuscular Volume 99.2 fL (83.0-100.0); Monocytes # 0.4 K/mcL (0.0-1.3); Monocytes % 6.7 %; Neutrophils # 4.8 K/mcL (1.6-8.9); Platelet Count 200 K/mcL (140-400); Red Blood Count 3.64 M/mcL (3.82-4.97); Segmented Neutrophils % 78.5 %; White Blood Count 6.1 K/mcL (4.3-11.1)
[2019-07-27 11:30] LABS: Alanine Aminotransferase 8 Units/L (7-52); Albumin 3.7 g/dL (3.5-5.7); Albumin/Globulin Ratio 1.5 (1.1-2.2); Alkaline Phosphatase 116 Units/L (34-104); Aspartate Amino Transferase 11 Units/L (13-39); BUN/Creatinine Ratio 12 (6-26); Bilirubin,Direct 0.1 mg/dL (0.0-0.2); Bilirubin,Indirect 0.3 mg/dL (0.0-1.0); Bilirubin,Total 0.4 mg/dL (0.3-1.0); Blood Urea Nitrogen 12 mg/dL (8-23); Calcium 8.6 mg/dL (8.6-10.3); Carbon Dioxide 20 mEq/L (23-29); Chloride 103 mEq/L (98-107); Globulin 2.5 g/dL (2.4-3.5); Glucose 104 mg/dL (70-105); Osmolality,Calculated 272 (280-300); Potassium 4.1 mEq/L (3.5-5.1); Sodium 131 mEq/L (136-145); Total Protein 6.2 g/dL (6.4-8.9); Troponin I < 0.03 ng/mL (< 0.04); eGFR For African Americans > 60 (> 60); eGFR For Non-African Americans 57 (> 60)
[2019-07-27] MEDS ORDERED: Naloxone 0.4 MG/ML INJ IVP PRN (13:17)
[2019-07-27] MEDS: Topiramate 100 MG TABLET PO SCH (20:06)
[2019-07-27] MEDS: lamoTRIgine 100 MG TABLET PO SCH (20:07)
[2019-07-27] MEDS ORDERED: TOPIRAMATE 200 MG PO SCH (21:00)
[2019-07-27] MEDS ORDERED: Artificial Tears SOLN 15 ML BOTTLE BOTH EYES PRN (21:45)
[2019-07-27] MEDS: *HR* HYDROmorphone (PF) 1 MG/ML SYRINGE IVP PRN (21:51)
[2019-07-28] MEDS: *HR* HYDROmorphone (PF) 1 MG/ML SYRINGE IVP PRN ×4 (06:09→20:44)
[2019-07-28 06:28] LABS: Basophils % 0.6 %; Eosinophils # 0.1 K/mcL (0.0-0.6); Eosinophils % 2.6 %; Hematocrit 33.8 % (35.3-44.9); Hemoglobin 10.7 g/dL (11.5-15.4); Immature Granulocytes % 0.2 % (0-4); Lymphocytes % 20.3 %; Mean Corpuscular HGB Conc 31.7 g/dL (31.6-35.5); Mean Corpuscular Hemoglobin 31.1 pg (28.0-33.3); Mean Corpuscular Volume 98.3 fL (83.0-100.0); Mean Platelet Volume 10.2 fL (9.4-12.4); Monocytes # 0.4 K/mcL (0.0-1.3); Neutrophils # 3.4 K/mcL (1.6-8.9); Platelet Count 196 K/mcL (140-400); Red Blood Count 3.44 M/mcL (3.82-4.97); Red Cell Distribution Width 14.2 % (11.5-14.5); Segmented Neutrophils % 68.3 %
[2019-07-28 06:50] LABS: BUN/Creatinine Ratio 12 (6-26); Blood Urea Nitrogen 11 mg/dL (8-23); Calcium 8.4 mg/dL (8.6-10.3); Carbon Dioxide 22 mEq/L (23-29); Chloride 106 mEq/L (98-107); Glucose 94 mg/dL (70-105); Osmolality,Calculated 277 (280-300); Potassium 3.7 mEq/L (3.5-5.1); Sodium 134 mEq/L (136-145); eGFR For African Americans > 60 (> 60); eGFR For Non-African Americans > 60 (> 60)
[2019-07-28] MEDS ORDERED: Aspirin Enteric Coated 81 MG Tablet PO SCH (09:00)
[2019-07-28] MEDS ORDERED: ARIPiprazole 2 MG TABLET PO SCH (09:00)
[2019-07-28] MEDS: Topiramate 100 MG TABLET PO SCH ×2 (09:09→20:45)
[2019-07-28] MEDS: lamoTRIgine 100 MG TABLET PO SCH ×2 (09:09→20:45)
[2019-07-29] MEDS: *HR* HYDROmorphone (PF) 1 MG/ML SYRINGE IVP PRN (03:53)
[2019-07-29 11:09] VITALS: BP 115/71
== END 2019-07-29 12:35 | disposition home or self-care (01) ==
LOC: 3BNU 09:59 → EMEROOARM 09:59 → 3BNU 14:50
PROVIDERS: ADMIT Internal Medicine; ATTEND Internal Medicine

== ENCOUNTER 2019-09-30 11:22 | Inpatient (IN) ==
[~2019-09-30 11:22] MED LIST: Vancomycin 1,500 MG/265 ML IV.SOLN IVPB ONE
[2019-09-30] MEDS ORDERED: Ringers Solution, Lactated 1,000 ML IVC SCH ×2 (12:00→19:14)
[2019-09-30] MEDS ORDERED: *HR* HYDROmorphone PF 0.5 MG/0.5 ML SYRINGE IVP PRN (13:04)
[2019-09-30] MEDS ORDERED: Pregabalin 75 MG CAPSULE PO ONE (13:04)
[2019-09-30] MEDS ORDERED: Ondansetron 4 MG/2 ML VIAL IVP ONE (13:04)
[2019-09-30] MEDS ORDERED: Acetaminophen IV 1,000 MG/100 ML INFUS..BTL IVPB ONE (13:04)
[2019-09-30] MEDS ORDERED: *HR* Midazolam HCl 2 MG/2 ML VIAL ONE (14:17)
[2019-09-30] MEDS ORDERED: *HR* FentaNYL (PF) 100 MCG/2 ML VIAL ONE (14:17)
[2019-09-30] MEDS ORDERED: Lidocaine -MPF 2% 2 ML VIAL ONE (14:19)
[2019-09-30] MEDS ORDERED: *HR* Phenylephrine 10 MG/ML VIAL ONE (14:23)
[2019-09-30] MEDS ORDERED: Total Joint Mixture (50 ml) INTRAART ONE (14:30)
[2019-09-30] MEDS ORDERED: *HR* PHENYLEPHRINE 1,000 MCG/10 ML SYRINGE IVP ONE ×2 (15:17→15:46)
[2019-09-30] MEDS ORDERED: Vancomycin 1,000 MG VIAL ONE (16:16)
[2019-09-30] MEDS ORDERED: Ethanol\\Acetic Acid\\Na Ace\\Ben 1,000 ML IRRIG.SOLN IR ONE (16:16)
[2019-09-30] MEDS ORDERED: ROPIVACAINE/PF/NS 0.25% 1 EACH SYRINGE INTRAART ONE (16:22)
[2019-09-30] MEDS ORDERED: EPHEDrine 50 MG/ML VIAL ONE (17:17)
[2019-09-30 19:01] LABS: Hematocrit 36.6 % (35.3-44.9); Hemoglobin 11.3 g/dL (11.5-15.4)
[2019-09-30] MEDS ORDERED: Ondansetron 4 MG/2 ML VIAL IVP PRN (19:14)
[2019-09-30] MEDS ORDERED: Sennosides 8.6 MG TABLET PO PRN (19:14)
[2019-09-30] MEDS ORDERED: Naloxone 0.4 MG/ML INJ IVP PRN (19:14)
[2019-09-30] MEDS ORDERED: Dextrose Gel 15 GM/37.5 ML TUBE PO PRN ×2 (19:14)
[2019-09-30] MEDS ORDERED: Levalbuterol Neb 0.63 MG/3 ML IH PRN (19:14)
[2019-09-30] MEDS ORDERED: *HR* OxyCODONE Immed Rel 5 MG TABLET PO PRN (19:14)
[2019-09-30] MEDS ORDERED: D5% in Water 1,000 ML IVC PRN (19:14)
[2019-09-30] MEDS ORDERED: MOM Conc 10 ML UD.LIQ PO PRN (19:14)
[2019-09-30] MEDS ORDERED: HYDROcodone BIT/Homatropine 5 MG TABLET PO PRN (19:14)
[2019-09-30] MEDS ORDERED: lamoTRIgine 100 MG TABLET PO SCH (19:14)
[2019-09-30] MEDS ORDERED: *HR* Dextrose 50 % in Water (Vial) 50 ML VIAL IVP PRN (19:14)
[2019-09-30] MEDS ORDERED: *HR* Promethazine 25 MG/ML VIAL IVP PRN (19:14)
[2019-09-30] MEDS ORDERED: *HR* FentaNYL PATCH 12 MCG PATCH TD SCH (20:29)
[2019-09-30] MEDS: Topiramate 100 MG TABLET PO SCH (20:55)
[2019-09-30] MEDS: Primidone 50 MG TABLET PO SCH (20:56)
[2019-09-30] MEDS: Insulin LISPRO 300 UNITS/3 ML VIAL SQ SCH ×2 (20:59→21:09)
[2019-09-30] MEDS: Ascorbic Acid 500 MG TABLET PO SCH (21:09)
[2019-09-30] MEDS: lamoTRIgine 100 MG TABLET PO SCH (22:43)
[2019-10-01] MEDS ORDERED: Vancomycin 1,500 MG/265 ML IV.SOLN IVPB ONE (01:00)
[2019-10-01 05:16] LABS: Basophils % 0.4 %; Eosinophils # 0.1 K/mcL (0.0-0.6); Eosinophils % 1.6 %; Hematocrit 31.2 % (35.3-44.9); Hemoglobin 9.6 g/dL (11.5-15.4); Immature Granulocytes % 0.4 % (0-4); Lymphocytes # 0.7 K/mcL (0.6-4.6); Lymphocytes % 9.2 %; Mean Corpuscular HGB Conc 30.8 g/dL (31.6-35.5); Mean Corpuscular Hemoglobin 31.2 pg (28.0-33.3); Mean Corpuscular Volume 101.3 fL (83.0-100.0); Monocytes # 0.5 K/mcL (0.0-1.3); Monocytes % 6.7 %; Neutrophils # 6.3 K/mcL (1.6-8.9); Platelet Count 214 K/mcL (140-400); Red Blood Count 3.08 M/mcL (3.82-4.97); Red Cell Distribution Width 14.5 % (11.5-14.5); Segmented Neutrophils % 81.7 %; White Blood Count 7.7 K/mcL (4.3-11.1)
[2019-10-01 05:38] LABS: BUN/Creatinine Ratio 16 (6-26); Blood Urea Nitrogen 15 mg/dL (8-23); Calcium 8.2 mg/dL (8.6-10.3); Carbon Dioxide 22 mEq/L (23-29); Chloride 106 mEq/L (98-107); Glucose 130 mg/dL (70-105); Osmolality,Calculated 281 (280-300); Potassium 3.8 mEq/L (3.5-5.1); Sodium 134 mEq/L (136-145); eGFR For African Americans > 60 (> 60); eGFR For Non-African Americans > 60 (> 60)
[2019-10-01] MEDS: lamoTRIgine 100 MG TABLET PO SCH ×2 (08:51→16:09)
[2019-10-01] MEDS: ARIPiprazole 2 MG TABLET PO SCH (08:51)
[2019-10-01] MEDS: Multivit/Ca/Min/Fe/FA 1 TAB TABLET PO SCH (08:52)
[2019-10-01] MEDS: Cyanocobalamin (B-12) 1,000 MCG TABLET PO SCH (08:52)
[2019-10-01] MEDS: Primidone 50 MG TABLET PO SCH ×2 (08:52→22:03)
[2019-10-01] MEDS: Cholecalciferol (D-3) 1,000 UNIT (25MCG) TABLET PO SCH (08:53)
[2019-10-01] MEDS: Insulin LISPRO 300 UNITS/3 ML VIAL SQ SCH ×4 (08:53→22:04)
[2019-10-01] MEDS: Topiramate 100 MG TABLET PO SCH ×2 (08:53→22:03)
[2019-10-01] MEDS: *HR* Acetaminophen w/Cod 300-30 mg 1 TAB TABLET PO PRN ×2 (08:53→16:09)
[2019-10-01] MEDS: Ascorbic Acid 500 MG TABLET PO SCH ×2 (08:53→16:09)
[2019-10-01] MEDS: Gabapentin 100 MG CAPSULE PO SCH ×2 (16:09→22:03)
[2019-10-01] MEDS: Aspirin Enteric Coated 81 MG Tablet PO SCH (16:15)
[2019-10-02 02:08] LABS: Basophils % 0.3 %; Eosinophils # 0.2 K/mcL (0.0-0.6); Eosinophils % 2.4 %; Hematocrit 31.5 % (35.3-44.9); Hemoglobin 9.6 g/dL (11.5-15.4); Immature Granulocytes % 0.4 % (0-4); Lymphocytes # 0.9 K/mcL (0.6-4.6); Lymphocytes % 12.8 %; Mean Corpuscular HGB Conc 30.5 g/dL (31.6-35.5); Mean Corpuscular Hemoglobin 30.6 pg (28.0-33.3); Mean Corpuscular Volume 100.3 fL (83.0-100.0); Mean Platelet Volume 9.9 fL (9.4-12.4); Monocytes # 0.7 K/mcL (0.0-1.3); Monocytes % 10.3 %; Neutrophils # 5.1 K/mcL (1.6-8.9); Platelet Count 209 K/mcL (140-400); Red Blood Count 3.14 M/mcL (3.82-4.97); Red Cell Distribution Width 14.7 % (11.5-14.5); Segmented Neutrophils % 73.8 %
[2019-10-02 02:26] LABS: BUN/Creatinine Ratio 13 (6-26); Blood Urea Nitrogen 11 mg/dL (8-23); Calcium 8.1 mg/dL (8.6-10.3); Carbon Dioxide 21 mEq/L (23-29); Chloride 104 mEq/L (98-107); Glucose 134 mg/dL (70-105); Osmolality,Calculated 273 (280-300); Potassium 3.5 mEq/L (3.5-5.1); Sodium 131 mEq/L (136-145); eGFR For African Americans > 60 (> 60); eGFR For Non-African Americans > 60 (> 60)
[2019-10-02] MEDS: Insulin LISPRO 300 UNITS/3 ML VIAL SQ SCH (08:36)
[2019-10-02] MEDS: Cholecalciferol (D-3) 1,000 UNIT (25MCG) TABLET PO SCH (09:16)
[2019-10-02] MEDS: Topiramate 100 MG TABLET PO SCH (09:17)
[2019-10-02] MEDS: Primidone 50 MG TABLET PO SCH (09:18)
[2019-10-02] MEDS: Cyanocobalamin (B-12) 1,000 MCG TABLET PO SCH (09:18)
[2019-10-02] MEDS: Aspirin Enteric Coated 81 MG Tablet PO SCH (09:18)
[2019-10-02] MEDS: Multivit/Ca/Min/Fe/FA 1 TAB TABLET PO SCH (09:18)
[2019-10-02] MEDS: *HR* Acetaminophen w/Cod 300-30 mg 1 TAB TABLET PO PRN (09:18)
[2019-10-02] MEDS: Ascorbic Acid 500 MG TABLET PO SCH (09:18)
[2019-10-02] MEDS: Gabapentin 100 MG CAPSULE PO SCH (09:18)
[2019-10-02] MEDS: ARIPiprazole 2 MG TABLET PO SCH (09:19)
[2019-10-02] MEDS: lamoTRIgine 100 MG TABLET PO SCH (09:19)
[2019-10-02 10:53] VITALS: BP 120/73
== END 2019-10-02 12:00 | DRG 470 ==
LOC: SAMDAY 11:22 → 3NENU 19:14
PROVIDERS: ADMIT Orthopaedic Surgery; ATTEND Orthopaedic Surgery

== ENCOUNTER 2019-10-07 17:07 | Observation (INO) ==
[2019-10-07] MEDS ORDERED: Naloxone 0.4 MG/ML INJ IVP PRN (21:11)
[2019-10-07] MEDS ORDERED: Topiramate 100 MG TABLET PO SCH (22:00)
[2019-10-07] MEDS ORDERED: *HR* Promethazine 25 MG/ML VIAL IVP PRN (22:03)
[2019-10-07] MEDS ORDERED: Acetaminophen 325 MG TABLET PO PRN (22:03)
[2019-10-07] MEDS: lamoTRIgine 100 MG TABLET PO SCH (23:03)
[2019-10-07] MEDS: Aspirin Enteric Coated 81 MG Tablet PO SCH (23:03)
[2019-10-07] MEDS: Primidone 50 MG TABLET PO SCH (23:04)
[2019-10-07] MEDS: Gabapentin 100 MG CAPSULE PO SCH (23:04)
[2019-10-07] MEDS ORDERED: Topiramate 100 MG TABLET PO ONE (23:39)
[2019-10-07] MEDS: *HR* Acetaminophen w/Cod 300-30 mg 1 TAB TABLET PO PRN (23:53)
[2019-10-08] MEDS: Aspirin Enteric Coated 81 MG Tablet PO SCH ×2 (07:36→21:45)
[2019-10-08] MEDS: Primidone 50 MG TABLET PO SCH ×2 (07:36→21:45)
[2019-10-08] MEDS: lamoTRIgine 100 MG TABLET PO SCH ×2 (07:36→16:05)
[2019-10-08] MEDS: Topiramate 100 MG TABLET PO SCH ×2 (07:37→21:45)
[2019-10-08] MEDS: Cholecalciferol (D-3) 1,000 UNIT (25MCG) TABLET PO SCH (07:37)
[2019-10-08] MEDS: ARIPiprazole 2 MG TABLET PO SCH (07:37)
[2019-10-08] MEDS: Gabapentin 100 MG CAPSULE PO SCH ×3 (07:37→21:44)
[2019-10-08 09:03] LABS: Prothrombin Time 11.6 Seconds (9.4-12.1)
[2019-10-08 09:06] LABS: Basophils # 0.1 K/mcL (0.0-0.2); Basophils % 0.9 %; Eosinophils # 0.3 K/mcL (0.0-0.6); Eosinophils % 5.3 %; Hematocrit 28.7 % (35.3-44.9); Hemoglobin 8.6 g/dL (11.5-15.4); Immature Granulocytes % 0.2 % (0-4); Lymphocytes % 16.2 %; Mean Corpuscular Hemoglobin 30.6 pg (28.0-33.3); Mean Corpuscular Volume 102.1 fL (83.0-100.0); Monocytes # 0.4 K/mcL (0.0-1.3); Monocytes % 6.6 %; Neutrophils # 4.2 K/mcL (1.6-8.9); Platelet Count 284 K/mcL (140-400); Red Blood Count 2.81 M/mcL (3.82-4.97); Red Cell Distribution Width 14.6 % (11.5-14.5); Segmented Neutrophils % 70.8 %; White Blood Count 5.9 K/mcL (4.3-11.1)
[2019-10-08 09:17] LABS: Alanine Aminotransferase 8 Units/L (7-52); Albumin 3.4 g/dL (3.5-5.7); Albumin/Globulin Ratio 1.5 (1.1-2.2); Alkaline Phosphatase 116 Units/L (34-104); Aspartate Amino Transferase 11 Units/L (13-39); BUN/Creatinine Ratio 16 (6-26); Bilirubin,Total 0.4 mg/dL (0.3-1.0); Blood Urea Nitrogen 14 mg/dL (8-23); Calcium 8.3 mg/dL (8.6-10.3); Carbon Dioxide 25 mEq/L (23-29); Chloride 104 mEq/L (98-107); Globulin 2.2 g/dL (2.4-3.5); Glucose 113 mg/dL (70-105); Magnesium 2.1 mg/dL (1.6-2.6); Osmolality,Calculated 281 (280-300); Phosphorous 3.2 mg/dL (2.7-4.5); Potassium 3.8 mEq/L (3.5-5.1); Sodium 135 mEq/L (136-145); Total Protein 5.6 g/dL (6.4-8.9); eGFR For African Americans > 60 (> 60); eGFR For Non-African Americans > 60 (> 60)
[2019-10-08] MEDS: *HR* Heparin 5,000 UNIT/ML VIAL SQ SCH ×3 (09:48→16:44)
[2019-10-08] MEDS ORDERED: Levalbuterol Neb 0.63 MG/3 ML IH PRN (11:01)
[2019-10-08] MEDS ORDERED: Gadolinium Contrast Agent (WT Based) IV PRN (14:35)
[2019-10-08] MEDS: *HR* Acetaminophen w/Cod 300-30 mg 1 TAB TABLET PO PRN (21:47)
[2019-10-09] MEDS: *HR* Heparin 5,000 UNIT/ML VIAL SQ SCH (05:57)
[2019-10-09] MEDS: *HR* Acetaminophen w/Cod 300-30 mg 1 TAB TABLET PO PRN (06:13)
[2019-10-09 07:08] VITALS: BP 117/71
[2019-10-09 07:32] LABS: Basophils # 0.1 K/mcL (0.0-0.2); Basophils % 0.9 %; Eosinophils # 0.4 K/mcL (0.0-0.6); Eosinophils % 7.3 %; Hematocrit 28.1 % (35.3-44.9); Hemoglobin 8.4 g/dL (11.5-15.4); Immature Granulocytes % 0.4 % (0-4); Lymphocytes % 18.2 %; Mean Corpuscular HGB Conc 29.9 g/dL (31.6-35.5); Mean Corpuscular Hemoglobin 31.3 pg (28.0-33.3); Mean Corpuscular Volume 104.9 fL (83.0-100.0); Monocytes # 0.4 K/mcL (0.0-1.3); Monocytes % 7.3 %; Neutrophils # 3.5 K/mcL (1.6-8.9); Platelet Count 269 K/mcL (140-400); Red Blood Count 2.68 M/mcL (3.82-4.97); Red Cell Distribution Width 14.9 % (11.5-14.5); Segmented Neutrophils % 65.9 %; White Blood Count 5.3 K/mcL (4.3-11.1)
[2019-10-09 07:48] LABS: BUN/Creatinine Ratio 19 (6-26); Blood Urea Nitrogen 17 mg/dL (8-23); Calcium 8.1 mg/dL (8.6-10.3); Carbon Dioxide 24 mEq/L (23-29); Chloride 105 mEq/L (98-107); Glucose 99 mg/dL (70-105); Magnesium 2.1 mg/dL (1.6-2.6); Osmolality,Calculated 282 (280-300); Phosphorous 3.5 mg/dL (2.7-4.5); Potassium 3.8 mEq/L (3.5-5.1); Sodium 135 mEq/L (136-145); eGFR For African Americans > 60 (> 60); eGFR For Non-African Americans > 60 (> 60)
[2019-10-09] MEDS: Aspirin Enteric Coated 81 MG Tablet PO SCH (08:35)
[2019-10-09] MEDS: ARIPiprazole 2 MG TABLET PO SCH (08:35)
[2019-10-09] MEDS: Primidone 50 MG TABLET PO SCH (08:35)
[2019-10-09] MEDS: Gabapentin 100 MG CAPSULE PO SCH (08:36)
[2019-10-09] MEDS: Cholecalciferol (D-3) 1,000 UNIT (25MCG) TABLET PO SCH (08:36)
[2019-10-09] MEDS: lamoTRIgine 100 MG TABLET PO SCH (08:37)
[2019-10-09] MEDS: Topiramate 100 MG TABLET PO SCH (08:37)
[2019-10-09] MEDS ORDERED: Cyanocobalamin (B-12) 1,000 MCG TABLET PO SCH (09:00)
== END 2019-10-09 12:07 | disposition home health service (06) ==
LOC: 3BNU → SUATTDRO 20:01
PROVIDERS: ADMIT Internal Medicine; ATTEND Internal Medicine

== ENCOUNTER 2021-03-13 20:03 | Inpatient (IN) ==
[2021-03-13 21:33] LABS: Alanine Aminotransferase 10 Units/L (7-52); Albumin 3.5 g/dL (3.5-5.7); Albumin/Globulin Ratio 1.3 (1.1-2.2); Alkaline Phosphatase 85 Units/L (34-104); Aspartate Amino Transferase 25 Units/L (13-39); BUN/Creatinine Ratio 10 (6-26); Bilirubin,Direct 0.2 mg/dL (0.0-0.2); Bilirubin,Indirect 0.3 mg/dL (0.0-1.0); Bilirubin,Total 0.5 mg/dL (0.3-1.0); Blood Urea Nitrogen 8 mg/dL (8-23); Calcium 8.6 mg/dL (8.6-10.3); Carbon Dioxide 21 mEq/L (23-29); Chloride 96 mEq/L (98-107); Creatine Kinase 327 Units/L (30-223); Ethanol < 10 mg/dL (Less than 10); Globulin 2.6 g/dL (2.4-3.5); Glucose 103 mg/dL (70-105); Osmolality,Calculated 263 (280-300); Potassium 3.3 mEq/L (3.5-5.1); Sodium 127 mEq/L (136-145); Total Protein 6.1 g/dL (6.4-8.9); Troponin I < 0.03 ng/mL (< 0.04); eGFR For African Americans > 60 (> 60); eGFR For Non-African Americans > 60 (> 60)
[2021-03-13 21:45] LABS: Thyroid Stimulating Hormone 2.426 mcIU/mL (0.340-5.600)
[2021-03-13 21:51] LABS: Hematocrit 23.3 % (35.3-44.9); Hemoglobin 7.4 g/dL (11.5-15.4); Immature Platelets 5.2 % (1.1-6.1); Lymphocytes # 0.1 K/mcL (0.6-4.6); Mean Corpuscular HGB Conc 31.8 g/dL (31.6-35.5); Mean Corpuscular Hemoglobin 29.7 pg (28.0-33.3); Mean Corpuscular Volume 93.6 fL (83.0-100.0); Mean Platelet Volume 10.8 fL (9.4-12.4); Platelet Count 83 K/mcL (140-400); Red Blood Count 2.49 M/mcL (3.82-4.97); Red Cell Distribution Width 16.1 % (11.5-14.5)
[2021-03-13 21:53] LABS: White Blood Count 0.7 K/mcL (4.3-11.1)
[2021-03-13 21:54] LABS: Amorphous Sediment,Urine Few per hpf (None-Few); Bacteria,Urine Few per hpf (None-Few); Bilirubin,Urine Negative (Negative); Blood,Urine Small (Negative); Clarity,Urine Turbid (Clear); Color,Urine Yellow (Yellow); Glucose,Urine (UA) Normal (Normal); Hyaline Casts,Urine Few per lpf (None Seen); Ketones,Urine Trace mg/dL (Negative); Leukocyte Esterase,Urine Negative (Negative); Mucus,Urine Few per lpf (None-Few); Nitrite,Urine Negative (Negative); Protein,Urine 50 mg/dL (Neg-Trace); Specific Gravity,Urine 1.021 (1.010-1.025); Squamous Epithelial Cell,Urine Few per hpf (None-Few); Urobilinogen,Urine Normal (Normal)
[2021-03-13 21:58] LABS: Amphetamine Screen,Urine Negative ng/mL (Cutoff=1000); Barbiturate Screen,Urine Positive ng/mL (Cutoff=200); Benzodiazepines Screen,Urine Negative ng/mL (Cutoff=200); Cannabinoid Screen,Urine Negative ng/mL (Cutoff = 50); Cocaine Screen,Urine Negative ng/mL (Cutoff= 300); Opiate Screen,Urine Positive ng/mL (Cutoff=300); Phencyclidine Screen,Urine Negative ng/mL (Cutoff=25)
[2021-03-13 22:16] LABS: Monocytes # 0.3 K/mcL (0.0-1.3); Neutrophils # 0.3 K/mcL (1.6-8.9); Platelet Estimate Decreased (Normal)
[2021-03-13 22:17] LABS: Anisocytosis 1+ (Not Present); Hypochromasia Present (Not Present); Ovalocytes 1+ (Not Present)
[2021-03-13 22:19] LABS: Macrocytosis Present (Not Present)
[2021-03-14 00:13] LABS: Influenza A PCR Negative (Negative); Influenza B PCR Negative (Negative); Resp. Syncytial Virus PCR Negative (Negative)
[2021-03-14 00:16] LABS: SARS-CoV-2 by PCR (In House) Negative (Negative)
[2021-03-14] MEDS ORDERED: Ondansetron ODT 4 MG TAB.RAPDIS SL PRN (00:19)
[2021-03-14] MEDS ORDERED: Naloxone 0.4 MG/ML INJ IVP PRN (00:19)
[2021-03-14 03:47] LABS: Hemoglobin 6.9 g/dL (11.5-15.4)
[2021-03-14 03:49] LABS: Hematocrit 21.8 % (35.3-44.9); Immature Platelets 5.3 % (1.1-6.1); Mean Corpuscular HGB Conc 31.7 g/dL (31.6-35.5); Mean Corpuscular Hemoglobin 29.6 pg (28.0-33.3); Mean Corpuscular Volume 93.6 fL (83.0-100.0); Mean Platelet Volume 10.5 fL (9.4-12.4); Red Blood Count 2.33 M/mcL (3.82-4.97); Red Cell Distribution Width 16.2 % (11.5-14.5)
[2021-03-14 03:55] LABS: White Blood Count 0.6 K/mcL (4.3-11.1)
[2021-03-14 04:04] LABS: BUN/Creatinine Ratio 10 (6-26); Blood Urea Nitrogen 7 mg/dL (8-23); Calcium 8.5 mg/dL (8.6-10.3); Carbon Dioxide 21 mEq/L (23-29); Chloride 96 mEq/L (98-107); Glucose 94 mg/dL (70-105); Magnesium 1.8 mg/dL (1.6-2.6); Osmolality,Calculated 262 (280-300); Phosphorous 2.3 mg/dL (2.7-4.5); Potassium 2.9 mEq/L (3.5-5.1); Sodium 127 mEq/L (136-145); eGFR For African Americans > 60 (> 60); eGFR For Non-African Americans > 60 (> 60)
[2021-03-14] MEDS ORDERED: Magnesium Sulfate 1 GM/102 ML PIGGYBACK IVPB ONE (05:29)
[2021-03-14] MEDS ORDERED: Potassium Phosphate 44 MEQ in 0.9 % Sodium Chloride 250 ML IVPB ONE (05:29)
[2021-03-14] MEDS ORDERED: Calcium Gluconate 1gm/50mL 1 GM/50 ML BAG IVPB ONE (05:30)
[2021-03-14] MEDS ORDERED: *HR* Heparin 5,000 UNIT/ML VIAL SQ SCH (06:00)
[2021-03-14] MEDS: 0.9 % Sodium Chloride 1,000 ML IVC SCH ×2 (06:43→13:30)
[2021-03-14] MEDS ORDERED: 0.9 % Sodium Chloride 250 ML IVC SCH (07:45)
[2021-03-14] MEDS: Cyanocobalamin (B-12) 1,000 MCG TABLET PO SCH (08:32)
[2021-03-14] MEDS: Cholecalciferol (D-3) 1,000 UNIT (25MCG) TABLET PO SCH (08:32)
[2021-03-14 09:25] LABS: BUN/Creatinine Ratio 11 (6-26); Blood Urea Nitrogen 7 mg/dL (8-23); Calcium 8.7 mg/dL (8.6-10.3); Carbon Dioxide 23 mEq/L (23-29); Chloride 97 mEq/L (98-107); Glucose 92 mg/dL (70-105); Osmolality,Calculated 264 (280-300); Potassium 3.3 mEq/L (3.5-5.1); Sodium 128 mEq/L (136-145); eGFR For African Americans > 60 (> 60); eGFR For Non-African Americans > 60 (> 60)
[2021-03-14 13:41] LABS: Hematocrit 23.7 % (35.3-44.9); Hemoglobin 7.7 g/dL (11.5-15.4)
[2021-03-14] MEDS ORDERED: cefTRIAXone 1,000 MG in Water for inj. (sterile) 10 ML IVP SCH (14:00)
[2021-03-14 14:25] LABS: BUN/Creatinine Ratio 13 (6-26); Blood Urea Nitrogen 8 mg/dL (8-23); Calcium 8.3 mg/dL (8.6-10.3); Carbon Dioxide 21 mEq/L (23-29); Carcinoembryonic Antigen 3.7 ng/mL (Less than 5.0); Chloride 99 mEq/L (98-107); Glucose 87 mg/dL (70-105); Osmolality,Calculated 262 (280-300); Potassium 3.5 mEq/L (3.5-5.1); Sodium 127 mEq/L (136-145); eGFR For African Americans > 60 (> 60); eGFR For Non-African Americans > 60 (> 60)
[2021-03-14] MEDS: Morphine Sulfate Immed Rel 15 MG TABLET PO PRN (22:41)
[2021-03-15 05:21] LABS: Mean Platelet Volume 10.1 fL (9.4-12.4)
[2021-03-15 05:23] LABS: Hematocrit 21.3 % (35.3-44.9); Lymphocytes # 0.1 K/mcL (0.6-4.6); Mean Corpuscular HGB Conc 32.9 g/dL (31.6-35.5); Mean Corpuscular Volume 91.4 fL (83.0-100.0); Nucleated Red Blood Cells 2.4 /100 WBC (0); Red Blood Count 2.33 M/mcL (3.82-4.97); Red Cell Distribution Width 17.5 % (11.5-14.5)
[2021-03-15] MEDS: Morphine Sulfate Immed Rel 15 MG TABLET PO PRN ×3 (05:32→21:55)
[2021-03-15 05:34] LABS: BUN/Creatinine Ratio 12 (6-26); Blood Urea Nitrogen 7 mg/dL (8-23); Calcium 8.1 mg/dL (8.6-10.3); Carbon Dioxide 22 mEq/L (23-29); Chloride 102 mEq/L (98-107); Glucose 81 mg/dL (70-105); Magnesium 1.9 mg/dL (1.6-2.6); Osmolality,Calculated 263 (280-300); Phosphorous 3.4 mg/dL (2.7-4.5); Potassium 3.2 mEq/L (3.5-5.1); Sodium 128 mEq/L (136-145); eGFR For African Americans > 60 (> 60); eGFR For Non-African Americans > 60 (> 60)
[2021-03-15 05:49] LABS: Platelet Count 96 K/mcL (140-400); White Blood Count 0.9 K/mcL (4.3-11.1)
[2021-03-15 06:06] LABS: Anisocytosis 1+ (Not Present); Monocytes # 0.2 K/mcL (0.0-1.3); Neutrophils # 0.6 K/mcL (1.6-8.9); Polychromasia 1+ (Not Present)
[2021-03-15 06:07] LABS: Platelet Estimate Slight Decrease (Normal); Poikilocytosis 1+ (Not Present)
[2021-03-15] MEDS: Cholecalciferol (D-3) 1,000 UNIT (25MCG) TABLET PO SCH (09:00)
[2021-03-15] MEDS: Cyanocobalamin (B-12) 1,000 MCG TABLET PO SCH (09:00)
[2021-03-15] MEDS: 0.9 % Sodium Chloride 1,000 ML IVC SCH (10:46)
[2021-03-15] MEDS ORDERED: dexAMETHasone 4 MG TABLET PO PRN (11:00)
[2021-03-15 15:03] LABS: Hematocrit 25.5 % (35.3-44.9); Hemoglobin 8.3 g/dL (11.5-15.4)
[2021-03-15 18:25] LABS: Hematocrit 24.3 % (35.3-44.9); Hemoglobin 7.7 g/dL (11.5-15.4)
[2021-03-15] MEDS: lamoTRIgine 100 MG TABLET PO SCH (21:00)
[2021-03-15] MEDS: Primidone 50 MG TABLET PO SCH (21:00)
[2021-03-15] MEDS: Topiramate 100 MG TABLET PO SCH (21:01)
[2021-03-16 01:39] LABS: Hematocrit 24.6 % (35.3-44.9); Hemoglobin 7.8 g/dL (11.5-15.4); Mean Corpuscular HGB Conc 31.7 g/dL (31.6-35.5); Mean Corpuscular Hemoglobin 29.1 pg (28.0-33.3); Mean Corpuscular Volume 91.8 fL (83.0-100.0); Mean Platelet Volume 9.7 fL (9.4-12.4); Monocytes # 0.4 K/mcL (0.0-1.3); Platelet Count 129 K/mcL (140-400); Red Blood Count 2.68 M/mcL (3.82-4.97); Red Cell Distribution Width 17.6 % (11.5-14.5); White Blood Count 1.2 K/mcL (4.3-11.1)
[2021-03-16 01:48] LABS: BUN/Creatinine Ratio 10 (6-26); Blood Urea Nitrogen 6 mg/dL (8-23); Calcium 8.6 mg/dL (8.6-10.3); Carbon Dioxide 24 mEq/L (23-29); Chloride 102 mEq/L (98-107); Glucose 118 mg/dL (70-105); Magnesium 1.7 mg/dL (1.6-2.6); Osmolality,Calculated 275 (280-300); Phosphorous 2.9 mg/dL (2.7-4.5); Potassium 3.4 mEq/L (3.5-5.1); Sodium 133 mEq/L (136-145); eGFR For African Americans > 60 (> 60); eGFR For Non-African Americans > 60 (> 60)
[2021-03-16 03:09] LABS: Anisocytosis 1+ (Not Present); Hypochromasia Present (Not Present); Neutrophils # 0.8 K/mcL (1.6-8.9)
[2021-03-16 03:10] LABS: Large Platelets Present (Not Present); Platelet Estimate Slight Decrease (Normal)
[2021-03-16] MEDS ORDERED: Patient Taking Own Medication 1 EACH PO SCH (09:00)
[2021-03-16] MEDS ORDERED: Aspirin Enteric Coated 81 MG Tablet PO SCH (09:00)
[2021-03-16] MEDS: Topiramate 100 MG TABLET PO SCH ×2 (09:33→22:18)
[2021-03-16] MEDS: Primidone 50 MG TABLET PO SCH ×2 (09:33→22:19)
[2021-03-16] MEDS: Cholecalciferol (D-3) 1,000 UNIT (25MCG) TABLET PO SCH (09:33)
[2021-03-16] MEDS: Cyanocobalamin (B-12) 1,000 MCG TABLET PO SCH (09:33)
[2021-03-16] MEDS: ARIPiprazole 2 MG TABLET PO SCH (09:33)
[2021-03-16] MEDS: lamoTRIgine 100 MG TABLET PO SCH ×2 (09:34→22:18)
[2021-03-16] MEDS: Morphine Sulfate Immed Rel 15 MG TABLET PO PRN ×2 (10:57→23:43)
[2021-03-17 06:21] LABS: Basophils % 0.8 %; Hemoglobin 7.4 g/dL (11.5-15.4); Immature Granulocytes % 0.8 % (0-4)
[2021-03-17 06:22] LABS: Hematocrit 23.1 % (35.3-44.9); Lymphocytes # 0.1 K/mcL (0.6-4.6); Lymphocytes % 8.9 %; Mean Corpuscular Hemoglobin 30.1 pg (28.0-33.3); Mean Corpuscular Volume 93.9 fL (83.0-100.0); Mean Platelet Volume 9.9 fL (9.4-12.4); Monocytes # 0.4 K/mcL (0.0-1.3); Monocytes % 34.7 %; Neutrophils # 0.7 K/mcL (1.6-8.9); Platelet Count 156 K/mcL (140-400); Red Blood Count 2.46 M/mcL (3.82-4.97); Red Cell Distribution Width 17.5 % (11.5-14.5); Segmented Neutrophils % 54.8 %; White Blood Count 1.2 K/mcL (4.3-11.1)
[2021-03-17 06:40] LABS: BUN/Creatinine Ratio 8 (6-26); Blood Urea Nitrogen 5 mg/dL (8-23); Calcium 8.3 mg/dL (8.6-10.3); Carbon Dioxide 25 mEq/L (23-29); Chloride 102 mEq/L (98-107); Glucose 91 mg/dL (70-105); Magnesium 1.8 mg/dL (1.6-2.6); Osmolality,Calculated 273 (280-300); Phosphorous 3.4 mg/dL (2.7-4.5); Potassium 3.4 mEq/L (3.5-5.1); Sodium 133 mEq/L (136-145); eGFR For African Americans > 60 (> 60); eGFR For Non-African Americans > 60 (> 60)
[2021-03-17 07:02] LABS: Anisocytosis 1+ (Not Present); Platelet Estimate Normal (Normal); Poikilocytosis 1+ (Not Present)
[2021-03-17] MEDS: lamoTRIgine 100 MG TABLET PO SCH ×2 (10:57→20:16)
[2021-03-17] MEDS: Cholecalciferol (D-3) 1,000 UNIT (25MCG) TABLET PO SCH (10:57)
[2021-03-17] MEDS: Primidone 50 MG TABLET PO SCH ×2 (10:57→20:15)
[2021-03-17] MEDS: ARIPiprazole 2 MG TABLET PO SCH (10:58)
[2021-03-17] MEDS: Cyanocobalamin (B-12) 1,000 MCG TABLET PO SCH (10:58)
[2021-03-17] MEDS: Topiramate 100 MG TABLET PO SCH ×2 (10:58→20:16)
[2021-03-17] MEDS: Ondansetron ODT 4 MG TAB.RAPDIS PO PRN (13:32)
[2021-03-17] MEDS: Morphine Sulfate Immed Rel 15 MG TABLET PO PRN ×2 (14:12→20:08)
[2021-03-18 06:14] LABS: Basophils % 0.6 %; Red Cell Distribution Width 17.6 % (11.5-14.5)
[2021-03-18 06:16] LABS: Hemoglobin 7.7 g/dL (11.5-15.4); Immature Granulocytes % 1.1 % (0-4); Lymphocytes # 0.1 K/mcL (0.6-4.6); Lymphocytes % 7.4 %; Mean Corpuscular HGB Conc 30.8 g/dL (31.6-35.5); Mean Corpuscular Hemoglobin 29.2 pg (28.0-33.3); Mean Corpuscular Volume 94.7 fL (83.0-100.0); Mean Platelet Volume 9.5 fL (9.4-12.4); Monocytes # 0.5 K/mcL (0.0-1.3); Monocytes % 28.4 %; Neutrophils # 1.1 K/mcL (1.6-8.9); Platelet Count 184 K/mcL (140-400); Red Blood Count 2.64 M/mcL (3.82-4.97); Segmented Neutrophils % 62.5 %; White Blood Count 1.8 K/mcL (4.3-11.1)
[2021-03-18 06:25] LABS: BUN/Creatinine Ratio 9 (6-26); Blood Urea Nitrogen 6 mg/dL (8-23); Calcium 8.3 mg/dL (8.6-10.3); Carbon Dioxide 25 mEq/L (23-29); Chloride 100 mEq/L (98-107); Glucose 97 mg/dL (70-105); Magnesium 1.8 mg/dL (1.6-2.6); Osmolality,Calculated 272 (280-300); Phosphorous 3.1 mg/dL (2.7-4.5); Potassium 3.4 mEq/L (3.5-5.1); Sodium 132 mEq/L (136-145); eGFR For African Americans > 60 (> 60); eGFR For Non-African Americans > 60 (> 60)
[2021-03-18] MEDS: lamoTRIgine 100 MG TABLET PO SCH ×2 (08:15→20:22)
[2021-03-18] MEDS: Topiramate 100 MG TABLET PO SCH ×2 (08:15→20:23)
[2021-03-18] MEDS: Cholecalciferol (D-3) 1,000 UNIT (25MCG) TABLET PO SCH (08:15)
[2021-03-18] MEDS: Primidone 50 MG TABLET PO SCH ×2 (08:15→20:22)
[2021-03-18] MEDS: ARIPiprazole 2 MG TABLET PO SCH (08:16)
[2021-03-18] MEDS: Cyanocobalamin (B-12) 1,000 MCG TABLET PO SCH (08:16)
[2021-03-18 08:26] LABS: Anisocytosis 1+ (Not Present); Hypochromasia Present (Not Present); Platelet Estimate Normal (Normal)
[2021-03-18] MEDS: 0.9 % Sodium Chloride 1,000 ML IVC SCH (15:06)
[2021-03-18] MEDS: Ondansetron ODT 4 MG TAB.RAPDIS PO PRN (20:25)
[2021-03-19 06:14] LABS: Basophils % 0.5 %; Hematocrit 24.9 % (35.3-44.9); Hemoglobin 7.9 g/dL (11.5-15.4); Immature Granulocytes % 1.5 % (0-4); Lymphocytes # 0.1 K/mcL (0.6-4.6); Lymphocytes % 4.9 %; Mean Corpuscular HGB Conc 31.7 g/dL (31.6-35.5); Mean Corpuscular Hemoglobin 29.9 pg (28.0-33.3); Mean Corpuscular Volume 94.3 fL (83.0-100.0); Mean Platelet Volume 9.6 fL (9.4-12.4); Monocytes % 22.2 %; Neutrophils # 1.4 K/mcL (1.6-8.9); Platelet Count 213 K/mcL (140-400); Red Blood Count 2.64 M/mcL (3.82-4.97); Red Cell Distribution Width 17.4 % (11.5-14.5); Segmented Neutrophils % 70.9 %
[2021-03-19 06:21] LABS: Monocytes # 0.4 K/mcL (0.0-1.3)
[2021-03-19 06:27] LABS: BUN/Creatinine Ratio 11 (6-26); Blood Urea Nitrogen 8 mg/dL (8-23); Calcium 8.4 mg/dL (8.6-10.3); Carbon Dioxide 25 mEq/L (23-29); Chloride 102 mEq/L (98-107); Glucose 90 mg/dL (70-105); Magnesium 1.8 mg/dL (1.6-2.6); Osmolality,Calculated 274 (280-300); Phosphorous 3.1 mg/dL (2.7-4.5); Potassium 3.5 mEq/L (3.5-5.1); Sodium 133 mEq/L (136-145); eGFR For African Americans > 60 (> 60); eGFR For Non-African Americans > 60 (> 60)
[2021-03-19] MEDS: Cyanocobalamin (B-12) 1,000 MCG TABLET PO SCH (10:47)
[2021-03-19] MEDS: lamoTRIgine 100 MG TABLET PO SCH ×2 (10:47→21:53)
[2021-03-19] MEDS: Cholecalciferol (D-3) 1,000 UNIT (25MCG) TABLET PO SCH (10:47)
[2021-03-19] MEDS: ARIPiprazole 2 MG TABLET PO SCH (10:48)
[2021-03-19] MEDS: Primidone 50 MG TABLET PO SCH ×2 (10:49→21:53)
[2021-03-19] MEDS: Topiramate 100 MG TABLET PO SCH ×2 (10:49→21:53)
[2021-03-20 03:06] LABS: Basophils % 0.4 %; Hematocrit 23.9 % (35.3-44.9); Hemoglobin 7.5 g/dL (11.5-15.4); Immature Granulocytes % 1.3 % (0-4); Lymphocytes # 0.2 K/mcL (0.6-4.6); Lymphocytes % 7.1 %; Mean Corpuscular HGB Conc 31.4 g/dL (31.6-35.5); Mean Corpuscular Hemoglobin 29.5 pg (28.0-33.3); Mean Corpuscular Volume 94.1 fL (83.0-100.0); Mean Platelet Volume 9.1 fL (9.4-12.4); Monocytes # 0.6 K/mcL (0.0-1.3); Neutrophils # 1.6 K/mcL (1.6-8.9); Platelet Count 189 K/mcL (140-400); Red Blood Count 2.54 M/mcL (3.82-4.97); Red Cell Distribution Width 17.9 % (11.5-14.5); Segmented Neutrophils % 68.2 %; White Blood Count 2.4 K/mcL (4.3-11.1)
[2021-03-20 03:28] LABS: BUN/Creatinine Ratio 14 (6-26); Blood Urea Nitrogen 10 mg/dL (8-23); Calcium 8.1 mg/dL (8.6-10.3); Carbon Dioxide 24 mEq/L (23-29); Chloride 102 mEq/L (98-107); Glucose 91 mg/dL (70-105); Magnesium 1.8 mg/dL (1.6-2.6); Osmolality,Calculated 275 (280-300); Phosphorous 2.8 mg/dL (2.7-4.5); Potassium 2.6 mEq/L (3.5-5.1); Sodium 133 mEq/L (136-145); eGFR For African Americans > 60 (> 60); eGFR For Non-African Americans > 60 (> 60)
[2021-03-20] MEDS: Aspirin Enteric Coated 81 MG Tablet PO SCH (10:42)
[2021-03-20] MEDS: Cholecalciferol (D-3) 1,000 UNIT (25MCG) TABLET PO SCH (10:42)
[2021-03-20] MEDS: Cyanocobalamin (B-12) 1,000 MCG TABLET PO SCH (10:43)
[2021-03-20] MEDS: lisinopriL 5 MG TABLET PO SCH (10:43)
[2021-03-20] MEDS: ARIPiprazole 2 MG TABLET PO SCH (10:43)
[2021-03-20] MEDS: lamoTRIgine 100 MG TABLET PO SCH ×2 (10:43→21:24)
[2021-03-20] MEDS: Primidone 50 MG TABLET PO SCH ×2 (10:43→21:26)
[2021-03-20] MEDS: Topiramate 100 MG TABLET PO SCH ×2 (10:44→21:25)
[2021-03-20] MEDS: Potassium Chloride Elixir 20 MEQ/15 ML UDC PO SCH (10:48)
[2021-03-20] MEDS: Ondansetron ODT 4 MG TAB.RAPDIS PO PRN (10:54)
[2021-03-21 07:46] LABS: Basophils % 0.9 %; Hematocrit 24.5 % (35.3-44.9); Hemoglobin 7.6 g/dL (11.5-15.4); Immature Granulocytes % 0.9 % (0-4); Lymphocytes # 0.1 K/mcL (0.6-4.6); Lymphocytes % 4.4 %; Mean Corpuscular Hemoglobin 28.9 pg (28.0-33.3); Mean Corpuscular Volume 93.2 fL (83.0-100.0); Mean Platelet Volume 9.5 fL (9.4-12.4); Monocytes # 0.4 K/mcL (0.0-1.3); Monocytes % 16.9 %; Platelet Count 236 K/mcL (140-400); Red Blood Count 2.63 M/mcL (3.82-4.97); Segmented Neutrophils % 76.9 %; White Blood Count 2.3 K/mcL (4.3-11.1)
[2021-03-21 08:02] LABS: BUN/Creatinine Ratio 10 (6-26); Blood Urea Nitrogen 7 mg/dL (8-23); Carbon Dioxide 22 mEq/L (23-29); Chloride 103 mEq/L (98-107); Glucose 83 mg/dL (70-105); Magnesium 1.8 mg/dL (1.6-2.6); Osmolality,Calculated 273 (280-300); Phosphorous 2.6 mg/dL (2.7-4.5); Potassium 2.6 mEq/L (3.5-5.1); Sodium 133 mEq/L (136-145); eGFR For African Americans > 60 (> 60); eGFR For Non-African Americans > 60 (> 60)
[2021-03-21 08:18] LABS: Neutrophils # 1.8 K/mcL (1.6-8.9)
[2021-03-21] MEDS: lisinopriL 5 MG TABLET PO SCH (09:22)
[2021-03-21] MEDS: lamoTRIgine 100 MG TABLET PO SCH ×2 (09:23→20:43)
[2021-03-21] MEDS: Cholecalciferol (D-3) 1,000 UNIT (25MCG) TABLET PO SCH (09:23)
[2021-03-21] MEDS: ARIPiprazole 2 MG TABLET PO SCH (09:24)
[2021-03-21] MEDS: Topiramate 100 MG TABLET PO SCH ×2 (09:24→20:43)
[2021-03-21] MEDS: Aspirin Enteric Coated 81 MG Tablet PO SCH (09:24)
[2021-03-21] MEDS: Primidone 50 MG TABLET PO SCH ×2 (09:24→20:42)
[2021-03-21] MEDS: Cyanocobalamin (B-12) 1,000 MCG TABLET PO SCH (09:25)
[2021-03-21 09:43] LABS: Anisocytosis 1+ (Not Present); Platelet Estimate Normal (Normal); Poikilocytosis 1+ (Not Present)
[2021-03-21] MEDS ORDERED: Potassium Chloride Elixir 20 MEQ/15 ML UDC PO ONE (10:05)
[2021-03-21] MEDS ORDERED: Potassium Phosphate 44 MEQ in 0.9 % Sodium Chloride 250 ML IVPB ONE (10:05)
[2021-03-21] MEDS ORDERED: *HR* FentaNYL (PF) 100 MCG/2 ML VIAL IVP ONE (13:06)
[2021-03-21] MEDS ORDERED: *HR* Midazolam HCl 5 MG/5 ML VIAL IVP ONE (13:06)
[2021-03-21 16:44] VITALS: O2SAT 99
[2021-03-21 19:13] VITALS: BP 124/71; PULSE 77; TEMP 98.6
== END 2021-03-21 22:25 | DRG 812 ==
LOC: 3NENU 20:03 → EMEROOARM 20:03 → SUATTDRO 03-14 00:47 → 3NENU 03-14 01:41
PROVIDERS: ADMIT Internal Medicine; ATTEND Internal Medicine

== ENCOUNTER 2021-04-21 13:51 | Inpatient (IN) ==
[2021-04-21] MEDS ORDERED: 0.9 % Sodium Chloride 1,000 ML IVC ONE ×2 (14:00→17:53)
[2021-04-21] MEDS ORDERED: 0.9 % Sodium Chloride 1,000 ML ONE (14:01)
[2021-04-21 14:19] LABS: Hemoglobin 6.1 g/dL (11.5-15.4); Red Cell Distribution Width 17.1 % (11.5-14.5)
[2021-04-21 14:21] LABS: Immature Platelets 3.8 % (1.1-6.1); Lymphocytes # 0.1 K/mcL (0.6-4.6); Mean Corpuscular HGB Conc 32.1 g/dL (31.6-35.5); Mean Corpuscular Volume 93.6 fL (83.0-100.0); Monocytes # 0.1 K/mcL (0.0-1.3); Red Blood Count 2.03 M/mcL (3.82-4.97)
[2021-04-21 14:22] LABS: Platelet Count 63 K/mcL (140-400)
[2021-04-21 14:27] LABS: White Blood Count 0.2 K/mcL (4.3-11.1)
[2021-04-21 14:28] LABS: INR 1.2; Prothrombin Time 13.5 Seconds (9.4-12.1)
[2021-04-21 14:50] LABS: Alanine Aminotransferase 6 Units/L (7-52); Albumin 3.6 g/dL (3.5-5.7); Albumin/Globulin Ratio 1.6 (1.1-2.2); Alkaline Phosphatase 73 Units/L (34-104); Aspartate Amino Transferase 10 Units/L (13-39); BUN/Creatinine Ratio 17 (6-26); Bilirubin,Direct 0.2 mg/dL (0.0-0.2); Bilirubin,Indirect 0.4 mg/dL (0.0-1.0); Bilirubin,Total 0.6 mg/dL (0.3-1.0); Blood Urea Nitrogen 11 mg/dL (8-23); Calcium 8.4 mg/dL (8.6-10.3); Carbon Dioxide 23 mEq/L (23-29); Chloride 100 mEq/L (98-107); Globulin 2.3 g/dL (2.4-3.5); Glucose 123 mg/dL (70-105); Osmolality,Calculated 271 (280-300); Potassium 4.1 mEq/L (3.5-5.1); Sodium 130 mEq/L (136-145); Total Protein 5.9 g/dL (6.4-8.9); Troponin I 0.03 ng/mL (< 0.04); eGFR For African Americans > 60 (> 60); eGFR For Non-African Americans > 60 (> 60)
[2021-04-21 15:02] LABS: Anisocytosis 1+ (Not Present); Platelet Estimate Marked Decrease (Normal)
[2021-04-21] MEDS ORDERED: Piperacillin/Tazobactam 3.375 GM in 0.9 % Sodium Chloride Mini Bag 100 ML IVPB ONE (16:18)
[2021-04-21] MEDS ORDERED: Vancomycin 1,250 MG/262.5 ML IV.SOLN IVPB ONE (17:00)
[2021-04-21] MEDS ORDERED: Naloxone 0.4 MG/ML INJ IVP PRN (17:47)
[2021-04-21 18:42] LABS: Amorphous Sediment,Urine Few per hpf (None-Few); Bacteria,Urine Few per hpf (None-Few); Bilirubin,Urine Negative (Negative); Blood,Urine Large (Negative); Clarity,Urine Ex.Turbid (Clear); Color,Urine Yellow (Yellow); Glucose,Urine (UA) Normal (Normal); Ketones,Urine Negative (Negative); Leukocyte Esterase,Urine Small (Negative); Nitrite,Urine Negative (Negative); Protein,Urine 70 mg/dL (Neg-Trace); RBC,Urine 15-30 per hpf (0-3); Specific Gravity,Urine 1.016 (1.010-1.025); Urobilinogen,Urine Normal (Normal); WBC,Urine 15-30 per hpf (0-3)
[2021-04-21] MEDS ORDERED: hydrOXYzine pamoate 25 MG CAPSULE PO PRN (18:45)
[2021-04-21] MEDS ORDERED: Topiramate 100 MG TABLET PO SCH (21:00)
[2021-04-21] MEDS: lamoTRIgine 100 MG TABLET PO SCH (21:03)
[2021-04-21] MEDS: Topiramate 100 MG TABLET PO SCH (21:03)
[2021-04-21 21:14] LABS: Eosinophils % 4.5 %; Hematocrit 16.8 % (35.3-44.9); Immature Platelets 4.1 % (1.1-6.1); Lymphocytes # 0.1 K/mcL (0.6-4.6); Lymphocytes % 31.8 %; Mean Corpuscular HGB Conc 31.5 g/dL (31.6-35.5); Mean Corpuscular Hemoglobin 29.3 pg (28.0-33.3); Mean Corpuscular Volume 92.8 fL (83.0-100.0); Mean Platelet Volume 10.1 fL (9.4-12.4); Monocytes # 0.1 K/mcL (0.0-1.3); Monocytes % 40.9 %; Neutrophils # 0.1 K/mcL (1.6-8.9); Red Blood Count 1.81 M/mcL (3.82-4.97); Red Cell Distribution Width 17.2 % (11.5-14.5); Segmented Neutrophils % 22.8 %
[2021-04-21 21:16] LABS: Platelet Count 51 K/mcL (140-400)
[2021-04-21 21:23] LABS: Hemoglobin 5.3 g/dL (11.5-15.4); White Blood Count 0.2 K/mcL (4.3-11.1)
[2021-04-21 21:55] LABS: Anisocytosis 1+ (Not Present); Hypochromasia Present (Not Present); Platelet Estimate Marked Decrease (Normal)
[2021-04-21] MEDS ORDERED: 0.9 % Sodium Chloride 250 ML ONE (22:34)
[2021-04-22] MEDS: Cefepime HCl 2,000 MG in 0.9 % Sodium Chloride Mini Bag 100 ML IVPB SCH ×4 (00:19→22:38)
[2021-04-22] MEDS: Vancomycin 1,250 MG/262.5 ML IV.SOLN IVPB SCH ×2 (06:03→17:19)
[2021-04-22 07:53] LABS: Hemoglobin 6.4 g/dL (11.5-15.4); Mean Corpuscular Hemoglobin 29.9 pg (28.0-33.3); Mean Platelet Volume 10.7 fL (9.4-12.4); Red Blood Count 2.14 M/mcL (3.82-4.97)
[2021-04-22 07:55] LABS: Hematocrit 19.6 % (35.3-44.9); Immature Platelets 5.4 % (1.1-6.1); Lymphocytes # 0.1 K/mcL (0.6-4.6); Mean Corpuscular HGB Conc 32.7 g/dL (31.6-35.5); Mean Corpuscular Volume 91.6 fL (83.0-100.0); Red Cell Distribution Width 17.3 % (11.5-14.5)
[2021-04-22 08:13] LABS: BUN/Creatinine Ratio 18 (6-26); Blood Urea Nitrogen 10 mg/dL (8-23); Carbon Dioxide 19 mEq/L (23-29); Chloride 102 mEq/L (98-107); Glucose 99 mg/dL (70-105); Magnesium 1.7 mg/dL (1.6-2.6); Osmolality,Calculated 265 (280-300); Phosphorous 2.2 mg/dL (2.7-4.5); Potassium 3.3 mEq/L (3.5-5.1); Sodium 128 mEq/L (136-145); eGFR For African Americans > 60 (> 60); eGFR For Non-African Americans > 60 (> 60)
[2021-04-22 08:17] LABS: Platelet Count 47 K/mcL (140-400)
[2021-04-22 08:20] LABS: White Blood Count 0.5 K/mcL (4.3-11.1)
[2021-04-22 08:38] LABS: Anisocytosis 1+ (Not Present); Monocytes # 0.1 K/mcL (0.0-1.3); Neutrophils # 0.3 K/mcL (1.6-8.9); Platelet Estimate Decreased (Normal); Poikilocytosis 1+ (Not Present); Polychromasia 1+ (Not Present)
[2021-04-22] MEDS: Aspirin Enteric Coated 81 MG Tablet PO SCH (08:50)
[2021-04-22] MEDS: Topiramate 100 MG TABLET PO SCH ×2 (08:50→22:42)
[2021-04-22] MEDS: lisinopriL 5 MG TABLET PO SCH (08:50)
[2021-04-22] MEDS: lamoTRIgine 100 MG TABLET PO SCH ×2 (08:51→22:42)
[2021-04-22] MEDS: Primidone 50 MG TABLET PO SCH ×3 (08:52→22:43)
[2021-04-22 08:53] LABS: Hematocrit 20.4 % (35.3-44.9); Hemoglobin 6.5 g/dL (11.5-15.4)
[2021-04-22] MEDS: Mirabegron [Myrbetriq] 25 MG Tab.Er.24h PO SCH (08:58)
[2021-04-22] MEDS: ARIPiprazole 2 MG TABLET PO SCH (10:22)
[2021-04-22] MEDS: Ringers Solution, Lactated 1,000 ML IVC SCH ×2 (10:22→22:36)
[2021-04-22] MEDS ORDERED: Morphine Sulfate Immed Rel 15 MG TABLET PO ONE (23:59)
[2021-04-23 01:31] LABS: Mean Corpuscular HGB Conc 32.6 g/dL (31.6-35.5); White Blood Count 1.3 K/mcL (4.3-11.1)
[2021-04-23 01:33] LABS: Hemoglobin 6.2 g/dL (11.5-15.4); Lymphocytes # 0.1 K/mcL (0.6-4.6); Mean Corpuscular Hemoglobin 29.5 pg (28.0-33.3); Mean Corpuscular Volume 90.5 fL (83.0-100.0); Mean Platelet Volume 10.7 fL (9.4-12.4); Red Cell Distribution Width 17.4 % (11.5-14.5)
[2021-04-23 01:46] LABS: Platelet Count 48 K/mcL (140-400)
[2021-04-23 04:27] LABS: Monocytes # 0.1 K/mcL (0.0-1.3)
[2021-04-23 04:28] LABS: Anisocytosis 1+ (Not Present); Platelet Estimate Marked Decrease (Normal); Reactive Lymphocytes Present (Not Present)
[2021-04-23] MEDS: ARIPiprazole 2 MG TABLET PO SCH (09:03)
[2021-04-23] MEDS: lamoTRIgine 100 MG TABLET PO SCH ×2 (09:03→20:42)
[2021-04-23] MEDS: Aspirin Enteric Coated 81 MG Tablet PO SCH (09:04)
[2021-04-23] MEDS: lisinopriL 5 MG TABLET PO SCH (09:04)
[2021-04-23] MEDS: Topiramate 100 MG TABLET PO SCH ×2 (09:04→20:42)
[2021-04-23] MEDS: Cefepime HCl 2,000 MG in 0.9 % Sodium Chloride Mini Bag 100 ML IVPB SCH ×2 (09:06→16:33)
[2021-04-23] MEDS: Mirabegron [Myrbetriq] 25 MG Tab.Er.24h PO SCH (09:13)
[2021-04-23] MEDS: Vancomycin 1,500 MG/265 ML IV.SOLN IVPB SCH ×2 (09:52→22:41)
[2021-04-23] MEDS: Ringers Solution, Lactated 1,000 ML IVC SCH (09:58)
[2021-04-23] MEDS ORDERED: Lactulose Oral Soln 20 GM/30 ML UDC PO ONE (10:18)
[2021-04-23] MEDS: Morphine Sulfate Immed Rel 15 MG TABLET PO PRN ×2 (11:12→20:43)
[2021-04-23] MEDS ORDERED: 0.9 % Sodium Chloride 250 ML ONE (12:07)
[2021-04-24] MEDS: Cefepime HCl 2,000 MG in 0.9 % Sodium Chloride Mini Bag 100 ML IVPB SCH ×3 (01:29→18:41)
[2021-04-24] MEDS: SALMETEROL IH SCH ×2 (03:49→09:00)
[2021-04-24] MEDS: FLUTICASONE PROPION IH SCH ×2 (03:49→09:00)
[2021-04-24] MEDS: Ringers Solution, Lactated 1,000 ML IVC SCH (03:50)
[2021-04-24] MEDS: lamoTRIgine 100 MG TABLET PO SCH ×2 (08:48→21:35)
[2021-04-24] MEDS: ARIPiprazole 2 MG TABLET PO SCH (08:48)
[2021-04-24] MEDS: Aspirin Enteric Coated 81 MG Tablet PO SCH (08:49)
[2021-04-24] MEDS: Topiramate 100 MG TABLET PO SCH ×2 (08:49→21:36)
[2021-04-24] MEDS: lisinopriL 5 MG TABLET PO SCH (08:49)
[2021-04-24] MEDS: Mirabegron [Myrbetriq] 25 MG Tab.Er.24h PO SCH (09:00)
[2021-04-24 09:16] LABS: Eosinophils # 0.1 K/mcL (0.0-0.6); Hematocrit 23.7 % (35.3-44.9); Hemoglobin 7.7 g/dL (11.5-15.4); Immature Platelets 5.6 % (1.1-6.1); Mean Corpuscular HGB Conc 32.5 g/dL (31.6-35.5); Mean Corpuscular Hemoglobin 29.7 pg (28.0-33.3); Mean Corpuscular Volume 91.5 fL (83.0-100.0); Mean Platelet Volume 10.8 fL (9.4-12.4); Red Blood Count 2.59 M/mcL (3.82-4.97); Red Cell Distribution Width 17.3 % (11.5-14.5); White Blood Count 4.5 K/mcL (4.3-11.1)
[2021-04-24 09:18] LABS: Platelet Count 74 K/mcL (140-400)
[2021-04-24] MEDS: Primidone 50 MG TABLET PO SCH (09:34)
[2021-04-24] MEDS: Vancomycin 1,500 MG/265 ML IV.SOLN IVPB SCH ×2 (09:34→21:34)
[2021-04-24 09:36] LABS: BUN/Creatinine Ratio 11 (6-26); Blood Urea Nitrogen 6 mg/dL (8-23); Calcium 8.4 mg/dL (8.6-10.3); Carbon Dioxide 21 mEq/L (23-29); Chloride 101 mEq/L (98-107); Glucose 91 mg/dL (70-105); Osmolality,Calculated 267 (280-300); Potassium 3.1 mEq/L (3.5-5.1); Sodium 130 mEq/L (136-145); eGFR For African Americans > 60 (> 60); eGFR For Non-African Americans > 60 (> 60)
[2021-04-24 11:53] LABS: Anisocytosis 1+ (Not Present); Dohle Bodies Present (Not Present); Monocytes # 0.3 K/mcL (0.0-1.3); Neutrophils # 4.1 K/mcL (1.6-8.9); Platelet Estimate Decreased (Normal); Poikilocytosis 1+ (Not Present); Toxic Granulation Present (Not Present)
[2021-04-24 11:54] LABS: Acanthocytes 1+ (Not Present); Polychromasia 1+ (Not Present)
[2021-04-24 15:06] VITALS: O2SAT 98
[2021-04-24 19:42] VITALS: BP 113/58; PULSE 90; TEMP 98.2
== END 2021-04-24 22:20 | DRG 375 ==
LOC: EMEROOARM 13:51 → SUATTDRO 18:10 → 3ANU 18:10
PROVIDERS: ADMIT Student in an Organized Health Care Education/Training Program; ATTEND Internal Medicine